=== PATIENT | male | born 1960 | race Caucasian/White ===

== ENCOUNTER 2016-08-04 16:14 | Emergency (ER) | payer SELFPAY ==
[~2016-08-04] VITALS: Ht 172.7 cm; Wt 104.3 kg
[2016-08-04] MEDS ORDERED: IV NORMAL SALINE 1000ML BAG 1,000 ML IV SCH (16:27)
--- NOTE | 2016-08-04 16:51 | EKG ---
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
[2016-08-04 17:22] LABS: BARBITURATES NEG (NEG); BENZODIAZEPINES NEG (NEG); CANNABINOIDS POS (NEG); COCAINE NEG (NEG); METHADONE NEG (NEG); OPIATES NEG (NEG); PHENCYCLIDINE NEG (NEG)
[2016-08-04 17:23] LABS: ETHANOL, URINE NEG (NEG)
[2016-08-04 17:50] LABS: BASO # 0.1 x10^3/uL (0.0-0.2); BASO % 0 % (0-3); EOS % 0 % (0-3); HEMATOCRIT 43.9 % (39.0-53.0); HEMOGLOBIN 14.8 g/dL (13.0-17.5); LYMPH # 0.7 x10^3/uL (1.0-4.8); LYMPH % 4 % (24-48); MEAN CORPUSCULAR HEMOGLOBIN 28 pg (25-35); MEAN CORPUSCULAR HGB CONC 34 g/dL (31-37); MEAN CORPUSCULAR VOLUME 83 fL (79-100); MONO % 6 % (0-9); NEUT % 90 % (31-73); PLATELET COUNT 211 x10^3/uL (140-400); RED BLOOD COUNT 5.32 x10^6/uL (4.30-5.70); RED CELL DISTRIBUTION WIDTH 14.8 % (11.5-14.5); WHITE BLOOD COUNT 17.2 x10^3/uL (4.0-11.0)
[2016-08-04 18:05] LABS: CALCIUM 8.9 mg/dL (8.5-10.1); CREATININE 1.4 mg/dL (0.7-1.3); GFR 52.2
[2016-08-04 18:07] LABS: POTASSIUM 2.7 mmol/L (3.5-5.1)
[2016-08-04] MEDS ORDERED: POTASSIUM CHLORIDE 20 MEQ TABLET.ER. PO ONE (18:15)
[2016-08-04 18:20] LABS: % BASOS 1 % (0-3)
[2016-08-04 18:23] LABS: ANISOCYTOSIS SLIGHT; OVALOCYTES OCC; PLT ESTIMATE ADEQUATE (ADEQUATE); POLYCHROMASIA SLIGHT
[2016-08-04 18:24] LABS: TOXIC GRANULATION SLIGHT
[2016-08-04 18:25] VITALS: BP 216/117
[2016-08-04] MEDS ORDERED: HYDR-2666 PO (18:37)
[2016-08-04] MEDS ORDERED: LISI10TA2 PO (18:37)
--- NOTE | 2016-08-04 18:37 | PHYS DOC ---
Past Medical History Past Medical History: Hypertension, Hepatitis Additional Past Medical Histor: non compliant due to lack of money, hep C Past Surgical History: No Surgical History Additional Information: 2ppd Alcohol Use: Occasionally Drug Use: None Adult General Chief Complaint Chief Complaint: SHOULDER INJURY HPI HPI Patient is a 56 year old male who presents by EMS for left upper arm audible pop sound with tearing sensation and resultant constant pain and ecchymosis. States he was pushing an object at time of injury. States he then became lightheaded and had pain radiation toward left chest, so he called EMS. He currently only has LUE pain. He denies exertional chest pain, dyspnea, orthopnea, palpitations, diaphoresis, lightheadedness, numbness, tingling, weakness, abdominal pain, back pain. Has not been on HTN meds for years, but was on Lisinopril in the past. He does mention upon triage screening symptoms of recent depression with suicidal thoughts. States he is talking to his friends and family about these feelings and is feeling somewhat better. States he would never commit suicide. He denies HI or hallucinations. Review of Systems Review of Systems Constitutional: Denies fever or chills [] Eyes: Denies change in visual acuity, redness, or eye pain [] HENT: Denies nasal congestion or sore throat [] Respiratory: Denies cough or shortness of breath [] Cardiovascular: No additional information not addressed in HPI [] GI: Denies abdominal pain, nausea, vomiting, bloody stools or diarrhea [] : Denies dysuria or hematuria [] Musculoskeletal: Denies back pain [] Integument: Denies rash or skin lesions [] Neurologic: Denies headache, focal weakness or sensory changes [] Endocrine: Denies polyuria or polydipsia [] Current Medications Current Medications Current Medications Medications (Trade) Dose Ordered Sig/Conor Start Time Stop Time Status Last Admin Dose Admin Acetaminophen/ Hydrocodone Bitart (Lortab 5/325) 2 tab 1X ONCE 08/04/16 18:45 08/04/16 18:46 DC 08/04/16 18:44 2 TAB Potassium Chloride (Klor-Con) 40 meq 1X ONCE 08/04/16 18:15 08/04/16 18:16 DC 08/04/16 18:44 40 MEQ Sodium Chloride (Iv Sodium Chloride 0.9% 1000ml Bag) 1,000 ml @ 1,000 mls/hr Q1H 08/04/16 16:27 08/04/16 17:26 DC 08/04/16 17:23 1,000 MLS/HR Allergies Allergies Allergies Coded Allergies Type Severity Reaction Last Updated Verified Penicillins Allergy Intermediate 08/04/16 Yes Physical Exam Physical Exam Constitutional: Well developed, well nourished, no acute distress, non-toxic appearance. [] HENT: Normocephalic, atraumatic, bilateral external ears normal, oropharynx moist, nose normal. [] Eyes: PERRLA, EOMI, conjunctiva normal, no discharge. [] Neck: Normal range of motion, supple. [] Cardiovascular:Heart rate regular rhythm, no murmur [] Lungs & Thorax: Bilateral breath sounds clear to auscultation [] Abdomen: Bowel sounds normal, soft, no tenderness. [] Skin: Warm, dry, no erythema, no rash. [] Back: No tenderness, no CVA tenderness. [] Extremities: LUE with swelling and ecchymosis of bicep area with similar contour compared to right arm; Full ROM with shoulder/elbow/wrist/hand; Can pronate/supinate; Can make fist/ok sign/thumb up/finger cross and spread; Can flex/ex wrist; Good radial pulse and brisk cap refill equal bilaterally; sensation intact to light touch m/u/r/ax nerves Neurologic: Alert and oriented X 3, normal motor function, normal sensory function, no focal deficits noted. [] Psychologic: Affect normal, judgement normal, mood normal. [] Current Patient Data Vital Signs Vital Signs Date Time Temp Pulse Resp B/P Pulse Ox O2 Delivery O2 Flow Rate FiO2 08/04/16 18:25 80 216/117 08/04/16 16:15 98.3 17 96 Room Air 98.3 Lab Values Laboratory Tests Test 08/04/16 17:10 08/04/16 17:30 Urine Opiates Screen Neg (NEG) Urine Methadone Screen Neg (NEG) Urine Barbiturates Neg (NEG) Urine Phencyclidine Screen Neg (NEG) Urine Amphetamine/Methamphetamine Neg (NEG) Urine Benzodiazepines Screen Neg (NEG) Urine Cocaine Screen Neg (NEG) Urine Cannabinoids Screen Pos (NEG) Urine Ethyl Alcohol Neg (NEG) White Blood Count 17.2x10^3/uL (4.0-11.0) H Red Blood Count 5.32x10^6/uL (4.30-5.70) Hemoglobin 14.8g/dL (13.0-17.5) Hematocrit 43.9% (39.0-53.0) Mean Corpuscular Volume 83fL (79-100) Mean Corpuscular Hemoglobin 28pg (25-35) Mean Corpuscular Hemoglobin Concent 34g/dL (31-37) Red Cell Distribution Width 14.8% (11.5-14.5) H Platelet Count 211x10^3/uL (140-400) Neutrophils (%) (Auto) 90% (31-73) H Lymphocytes (%) (Auto) 4% (24-48) L Monocytes (%) (Auto) 6% (0-9) Eosinophils (%) (Auto) 0% (0-3) Basophils (%) (Auto) 0% (0-3) Neutrophils # (Auto) 15.5x10^3uL (1.8-7.7) H Lymphocytes # (Auto) 0.7x10^3/uL (1.0-4.8) L Monocytes # (Auto) 1.0x10^3/uL (0.0-1.1) Eosinophils # (Auto) 0.0x10^3/uL (0.0-0.7) Basophils # (Auto) 0.1x10^3/uL (0.0-0.2) Segmented Neutrophils % 90% (35-66) H Lymphocytes % 4% (24-48) L Monocytes % 5% (0-10) Basophils % 1% (0-3) Toxic Granulation Slight Platelet Estimate Adequate (ADEQUATE) Large Platelets Occ Polychromasia Slight Anisocytosis Slight Ovalocytes Occ Sodium Level 142mmol/L (136-145) Potassium Level 2.7mmol/L (3.5-5.1) *L Chloride Level 102mmol/L (98-107) Carbon Dioxide Level 29mmol/L (21-32) Anion Gap 11 (6-14) Blood Urea Nitrogen 14mg/dL (8-26) Creatinine 1.4mg/dL (0.7-1.3) H Estimated GFR (Cockcroft-Gault) 52.2 Glucose Level 206mg/dL (70-99) H Calcium Level 8.9mg/dL (8.5-10.1) Laboratory Tests 08/04/16 17:30 Laboratory Tests 08/04/16 17:30 EKG EKG EKG as interpreted by me as normal sinus rhythm, rate 75, no ST elevations, lateral T wave inversions, P-R 126, QTC 474, no ectopy Course & Med Decision Making Course & Med Decision Making Pertinent Labs and Imaging studies reviewed. (See chart for details) Labs reveal hypokalemia, which was replaced by mouth. History and musculoskeletal exam concerning for partial bicep tendon or muscle injury. Will restart him on lisinopril. Provided sling for arm. Encouraged orthopedic follow-up as well as primary care follow-up. Return precautions given. He understands and agrees with plan. Dragon Disclaimer Dragon Disclaimer This electronic medical record was generated, in whole or in part, using a voice recognition dictation system. Departure Departure Impression: Primary Impression: Left arm pain Additional Impressions: Feeling suicidal Uncontrolled hypertension Disposition: HOME, SELF-CARE Condition: STABLE Referrals: SHANIQUE STANLEY MD (PCP) JOVANI LUIS MD Patient Instructions: Musculoskeletal Pain Additional Instructions: Take lisinopril for high blood pressure. Take Tylenol or ibuprofen as needed for moderate pain. Take hydrocodone as needed for severe pain. Do not drink, drive or operate heavy machinery after taking hydrocodone as it may make you sleepy. Follow-up with your primary care doctor for high blood pressure and Orthopedics clinic for your arm. Return for any concerns. Scripts Hydrocodone Bit/Acetaminophen (Hydrocodone-Apap 5-325 )1 Each Tablet1-2 Tab PO PRN Q6HRS PRN PAIN #10 TAB Prov:Vinicius OLGUIN MD 08/04/16 Lisinopril 10 Mg Tablet1 Tab PO DAILY #30 TAB Ref 0 Prov:Vinicius OLGUIN MD 08/04/16 Problem Qualifiers Vinicius OLGUIN MD Aug 04, 2016 18:37
[2016-08-04] MEDS ORDERED: HYDROCODONE/APAP 5/325MG TABLET. PO ONE (18:45)
== END 2016-08-04 18:45 | disposition home or self-care (01) ==
LOC: ER 16:14
DX: M79.602 Pain in left arm (principal); E87.6 Hypokalemia; R45.851 Suicidal ideations; I10 Essential (primary) hypertension; F17.200 Nicotine dependence, unspecified, uncomplicated; Z86.19 Personal history of other infectious and parasitic diseases; Z88.0 Allergy status to penicillin
CPT/HCPCS: 36415; 80048; 85007; 85027; 93005; 96360; 99285; G0481; J7030

== ENCOUNTER 2016-10-12 22:58 | Inpatient (IN) | payer SELFPAY ==
[~2016-10-12] VITALS: Ht 177.8 cm; Wt 84.8 kg
[~2016-10-12 22:58] MED LIST: HYDR-2666 PO; LISI10TA2 PO
[2016-10-12] MEDS ORDERED: PROPOFOL 50 ML IV ONE ×2 (23:15→23:45)
[2016-10-12] MEDS ORDERED: NITROGLYCERIN PREMIX 250 ML IV PRN (23:30)
--- NOTE | 2016-10-12 23:43 | PHYS DOC ---
Past Medical History Past Medical History: Hypertension, Hepatitis Additional Past Medical Histor: non compliant due to lack of money, hep C Past Surgical History: No Surgical History Alcohol Use: Occasionally Drug Use: None Adult General Chief Complaint Chief Complaint: SHORTNESS OF BREATH HPI HPI Patient is a 56 year old male who presents with complaint of severe respiratory distress. The patient was brought to the emergency department by EMS after patient had called him to his home due to shortness of breath. Patient was found to be hypoxic and was started on supplemental oxygen by EMS prior to arrival. On arrival the patient is only able to speak in one-word sentences and is currently tripoding, thus he is only able to provide limited history. The patient denies any known history of COPD or congestive heart failure and is not on medications for these conditions. Patient does not follow the primary doctor at this time. Patient states his symptoms have been worsening over the past 3 days. Patient denies any fevers, chest pain, or abdominal pain. 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 Review of Systems Review of Systems Constitutional: Fatigue, denies fever or chills [] Eyes: Denies change in visual acuity, redness, or eye pain [] HENT: Denies nasal congestion or sore throat [] Respiratory: Shortness of breath [] Cardiovascular: Denies chest pain or edema [] GI: Denies abdominal pain, nausea, vomiting, bloody stools or diarrhea [] : Denies dysuria or hematuria [] Musculoskeletal: Denies back pain or joint pain [] Integument: Denies rash or skin lesions [] Neurologic: Denies headache, focal weakness or sensory changes [] Current Medications Current Medications Current Medications Medications (Trade) Dose Ordered Sig/Conor Start Time Stop Time Status Last Admin Dose Admin Nitroglycerin/ Dextrose 250 ml @ 0 mls/hr CONT PRN 10/12/16 23:30 Propofol 50 ml @ As Directed STK-MED ONCE 10/12/16 23:15 10/12/16 23:16 DC Allergies Allergies Allergies Coded Allergies Type Severity Reaction Last Updated Verified Penicillins Allergy Intermediate 08/04/16 Yes Physical Exam Physical Exam Constitutional: Alert, afebrile, diaphoretic, appears in severe respiratory distress. [] HENT: Normocephalic, atraumatic, bilateral external ears normal, oropharynx moist, no oral exudates, nose normal. [] Eyes: PERRLA, EOMI, conjunctiva normal, no discharge. [] Neck: Normal range of motion, no tenderness, supple, no stridor. [] Cardiovascular: Tachycardia, regular rhythm, no murmur [] Lungs & Thorax: Severely restricted air movement bilaterally, rales bilaterally , faint expiratory wheezes [] Abdomen: Bowel sounds normal, soft, no tenderness, no masses, no pulsatile masses. [] Skin: Diaphoretic, cyanotic, mottled. [] Back: No tenderness, no CVA tenderness. [] Extremities: No tenderness, distal cyanosis present, no clubbing, ROM intact, trace pedal edema. [] Neurologic: Alert and oriented X 3, normal motor function, normal sensory function, no focal deficits noted. [] Current Patient Data Lab Values Laboratory Tests Test 10/12/16 23:02 10/12/16 23:29 White Blood Count 16.2 x10^3/uL (4.0-11.0) H Red Blood Count 6.41 x10^6/uL (4.30-5.70) H Hemoglobin 17.7 g/dL (13.0-17.5) H Hematocrit 55.0 % (39.0-53.0) H Mean Corpuscular Volume 86 fL (79-100) Mean Corpuscular Hemoglobin 28 pg (25-35) Mean Corpuscular Hemoglobin Concent 32 g/dL (31-37) Red Cell Distribution Width 15.5 % (11.5-14.5) H Platelet Count 298 x10^3/uL (140-400) Neutrophils (%) (Auto) 72 % (31-73) Lymphocytes (%) (Auto) 18 % (24-48) L Monocytes (%) (Auto) 8 % (0-9) Eosinophils (%) (Auto) 2 % (0-3) Basophils (%) (Auto) 0 % (0-3) Neutrophils # (Auto) 11.7 x10^3uL (1.8-7.7) H Lymphocytes # (Auto) 2.9 x10^3/uL (1.0-4.8) Monocytes # (Auto) 1.4 x10^3/uL (0.0-1.1) H Eosinophils # (Auto) 0.2 x10^3/uL (0.0-0.7) Basophils # (Auto) 0.1 x10^3/uL (0.0-0.2) Platelet Estimate Adequate (ADEQUATE) Large Platelets Few Giant Platelets Occ D-Dimer (Farzana) 1.22 ug/mlFEU (0.00-0.50) H Sodium Level 145 mmol/L (136-145) Potassium Level 3.6 mmol/L (3.5-5.1) Chloride Level 105 mmol/L (98-107) Carbon Dioxide Level 24 mmol/L (21-32) Anion Gap 16 (6-14) H Blood Urea Nitrogen 23 mg/dL (8-26) Creatinine 1.3 mg/dL (0.7-1.3) Estimated GFR (Cockcroft-Gault) 56.9 BUN/Creatinine Ratio 18 (6-20) Glucose Level 252 mg/dL (70-99) H Lactic Acid Level 7.7 mmol/L (0.4-2.0) *H Calcium Level 9.8 mg/dL (8.5-10.1) Total Bilirubin 0.4 mg/dL (0.2-1.0) Aspartate Amino Transferase (AST) 31 U/L (15-37) Alanine Aminotransferase (ALT) 34 U/L (16-63) Alkaline Phosphatase 133 U/L (46-116) H Creatine Kinase 167 U/L (39-308) Creatine Kinase MB (Mass) 5.1 ng/mL (0.0-3.6) H Creatine Kinase MB Relative Index 3.1 % (0-4) Troponin I Quantitative 0.039 ng/mL (0.000-0.055) KS-Yfq-P-Type Natriuretic Peptide 5033 pg/mL (0-124) H Total Protein 9.1 g/dL (6.4-8.2) H Albumin 4.2 g/dL (3.4-5.0) Albumin/Globulin Ratio 0.9 (1.0-1.7) L O2 Saturation 99 % (92-99) Arterial Blood pH 7.21 (7.35-7.45) L Arterial Blood pCO2 at Patient Temp 61 mmHg (35-46) *H Arterial Blood pO2 at Patient Temp 258 mmHg (75-108) H Arterial Blood HCO3 23 mmol/L (21-28) Arterial Blood Base Excess -6 mmol/L (-3-3) L FiO2 100 Laboratory Tests 10/12/16 23:02 Laboratory Tests 10/12/16 23:02 EKG EKG Interpreted by me: Heart rate 120, sinus tachycardia, frequent PVCs, normal axis , no acute ST/T-wave abnormalities present [] Radiology/Procedures Radiology/Procedures One view AP chest x-ray interpreted by me: [place] pulmonary edema bilaterally, ET tube in satisfactory position, cardiomegaly present [] Course & Med Decision Making Course & Med Decision Making Pertinent Labs and Imaging studies reviewed. (See chart for details) The patient appeared to be in impending respiratory failure upon arrival to the emergency department. The patient was offered BiPAP therapy, however he stated that he could not tolerate the treatment and took the mask off. I explained to the patient that due to his extreme condition the only thing that could help him at this time would be to intubate him in order to help improve his breathing. The patient gave verbal consent to have this procedure done and this was completed as outlined in the procedure note. Patient noted be critically hypertensive and patient's chest x-ray looks consistent with acute congestive heart failure. The patient was initiated on IV propofol for sedation, IV nitroglycerin for blood pressure, and IV Lasix for treatment of pulmonary edema. The patient's vital signs are stabilizing at this time. The patient will be admitted to ICU for further treatment. I spoke with Dr. Alcaraz who accepted care of patient in hospital. The patient will also be consulted by Dr. Lyn of pulmonology and Dr. Rosa of cardiology. CT angiogram pending at time of admission. These results will be followed up by Dr. Pak. Critical care time excluding procedures: 65 minutes Dragon Disclaimer Dragon Disclaimer This electronic medical record was generated, in whole or in part, using a voice recognition dictation system. Intubation Procedure Intub Indication: Respiratory failure Consent: Patient gave verbal consent for procedure. Medications Used: see nursing note Procedure: The patient was placed in the appropriate position. Intubation was performed under direct laryngoscopy with placement of a 7.5 endotracheal tube. Secured at 22 cm at the lip. Initial confirmation of placement included bilateral breath sounds, tube fogging, adequate chest rise, adequate pulse oximetry reading. A chest x-ray to verify correct placement of the tube showed appropriate tube position. The patient tolerated the procedure well. Complications: none. Departure Departure Impression: Primary Impression: Acute respiratory failure Additional Impressions: Acute congestive heart failure Metabolic acidosis Respiratory acidosis Disposition: ADMITTED INPATIENT Admitting Physician: Robin Alcaraz Condition: CRITICAL Referrals: SHANIQUE STANLEY MD (PCP) Problem Qualifiers Primary Impression: Acute respiratory failure Respiratory failure complication: hypoxia Qualified Codes: J96.01 - Acute respiratory failure with hypoxia Additional Impressions: Acute congestive heart failure Congestive heart failure type: unspecified congestive heart failure type Qualified Codes: I50.9 - Heart failure, unspecified OLY MICHELLE MD October 12, 2016 23:43
[2016-10-12 23:44] LABS: BASO # 0.1 x10^3/uL (0.0-0.2); BASO % 0 % (0-3); EOS % 2 % (0-3); HEMOGLOBIN 17.7 g/dL (13.0-17.5); LYMPH # 2.9 x10^3/uL (1.0-4.8); LYMPH % 18 % (24-48); MEAN CORPUSCULAR HEMOGLOBIN 28 pg (25-35); MEAN CORPUSCULAR HGB CONC 32 g/dL (31-37); MEAN CORPUSCULAR VOLUME 86 fL (79-100); MONO % 8 % (0-9); NEUT % 72 % (31-73); PLATELET COUNT 298 x10^3/uL (140-400); RED BLOOD COUNT 6.41 x10^6/uL (4.30-5.70); RED CELL DISTRIBUTION WIDTH 15.5 % (11.5-14.5); WHITE BLOOD COUNT 16.2 x10^3/uL (4.0-11.0)
[2016-10-12] MEDS ORDERED: FUROSEMIDE 40 MG/4 ML VIAL. IVP ONE (23:45)
[2016-10-12] MEDS ORDERED: IV NORMAL SALINE 1000ML BAG 1,000 ML IV SCH (23:45)
[2016-10-12 23:57] LABS: CALCIUM 9.8 mg/dL (8.5-10.1); CREATININE 1.3 mg/dL (0.7-1.3); GFR 56.9; POTASSIUM 3.6 mmol/L (3.5-5.1)
[2016-10-13] VITALS (21 sets, daily range): BP systolic 90–133; BP diastolic 67–98
[2016-10-13 00:09] LABS: ALBUMIN 4.2 g/dL (3.4-5.0); ALBUMIN/GLOBULIN RATIO 0.9 (1.0-1.7); TOTAL BILIRUBIN 0.4 mg/dL (0.2-1.0); TOTAL PROTEIN 9.1 g/dL (6.4-8.2)
[2016-10-13 00:14] LABS: CKMB MASS 5.1 ng/mL (0.0-3.6)
[2016-10-13 00:15] LABS: PH ABG 7.21 (7.35-7.45)
[2016-10-13] MEDS ORDERED: ROCURONIUM 50 MG/5 ML VIAL. IV ONE ×2 (00:15→02:15)
[2016-10-13 00:16] LABS: FIO2 ABG 100; HCO3 ABG 23 mmol/L (21-28); PCO2 ABG 61 mmHg (35-46); PO2 ABG 258 mmHg (75-108); SAT O2 ABG 99 % (92-99)
[2016-10-13 00:28] LABS: PLT ESTIMATE ADEQUATE (ADEQUATE)
[2016-10-13] MEDS ORDERED: CONTRAST GIVEN MC PRN (00:30)
[2016-10-13] MEDS ORDERED: ETOMIDATE 20 MG/10 ML VIAL. IV ONE (00:30)
[2016-10-13] MEDS ORDERED: IOHEXOL 300 MG/ML 75 ML VIAL IV ONE (01:00)
[2016-10-13] MEDS ORDERED: ACETAMINOPHEN 325 MG TABLET. PO PRN (01:15)
[2016-10-13] MEDS ORDERED: ONDANSETRON PF 4 MG/2 ML VIAL. IV PRN (01:15)
--- NOTE | 2016-10-13 01:15 | RAD ---
CT angiography chest with contrast TECHNIQUE: Helical CT imaging of the chest with multiplanar 3-D MIP reconstructions of the coronary arteries acquired to assess for emboli with 60 mL Omnipaque 300 intravenous contrast. HISTORY: Acute congestive heart failure FINDINGS: No pulmonary artery embolus. Coronary calcified plaque. Thoracic aorta is unremarkable. Heart size is normal. Nasogastric intubation. Endotracheal intubation. No adenopathy in the chest. Very small dependent pleural effusions. Mild dependent mucus within the distal trachea, [place] and central bronchi. Smooth septal interstitial thickening likely edema. There is extensive peripheral bronchial wall thickening. Diffuse groundglass opacities likely edema. Consolidated opacities at the lower lobes right greater than left with air bronchograms. IMPRESSION: 1. No pulmonary artery embolus. 2. Consolidated opacities with air bronchograms at the lower lobes greater on the right. This may be multilobar pneumonia. There is layering fluid within the dependent distal trachea and central bronchi which could be mucous or could be sequela of aspiration. 3. Bronchial wall thickening likely bronchitis. 4. Pulmonary edema. Small pleural effusions. Exposure: One or more of the following individualized dose reduction techniques were utilized for this examination: 1. Automated exposure control 2. Adjustment of the mA and/or kV according to patient size 3. Use of iterative reconstruction technique Electronically signed by: Cristobal Lui MD (10/13/2016 1:12 AM)
[2016-10-13] MEDS ORDERED: levOFLOXacin PER PHARMACY. MC PRN (01:45)
[2016-10-13] MEDS: PROPOFOL 100 ML IV PRN ×6 (02:01→23:32)
[2016-10-13] MEDS: IV NORMAL SALINE 1000ML BAG 1,000 ML IV SCH ×3 (02:28→17:43)
[2016-10-13] MEDS ORDERED: IV NORMAL SALINE 500ML BAG 500 ML IV ONE (03:30)
--- NOTE | 2016-10-13 07:43 | EKG ---
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
[2016-10-13 07:46] LABS: HCO3 ABG 20 mmol/L (21-28); PCO2 ABG 31 mmHg (35-46); PH ABG 7.42 (7.35-7.45); PO2 ABG 178 mmHg (75-108); SAT O2 ABG 99 % (92-99)
--- NOTE | 2016-10-13 07:55 | RAD ---
Indication difficulty breathing. 2 AP views of the chest were obtained. No prior imaging of the chest is available. There is mild cardiomegaly. There are widespread infiltrates in the lungs likely reflecting pulmonary edema. There is no focal consolidated pneumonia. Endotracheal tube is appropriately positioned above the [place]. Nasogastric tube has its tip beyond the proximal body of the stomach IMPRESSION: Bilateral infiltrates suggesting pulmonary edema. Appropriately positioned endotracheal and nasogastric tubes. No focal consolidated pneumonia seen
[2016-10-13 08:18] LABS: FIO2 ABG 65
--- NOTE | 2016-10-13 09:42 | PDOC2 ---
CARDIAC CONSULT DATE OF CONSULT Date of Consult DATE: 10/13/16 TIME: 09:36 REASON FOR CONSULT Reason for Consult: CHF REFERRING PHYSICIAN Referring Physician: Dr. Madrid SOURCE Source: Chart review, Patient HISTORY OF PRESENT ILLNESS HISTORY OF PRESENT ILLNESS This is a 56 yo male who presented secondary to respiratory distress. HPI obtained from chart review as patient is intubated and family not present. EMS called for shortness of breath. Symptoms ongoing for the last 3 days or so. Was reportedly noted to be hypoxic per EMS and placed on NC. No history of COPD or CHF per report. Further history not available. PAST MEDICAL HISTORY Cardiovascular: HTN PAST SURGICAL HISTORY Past Surgical History: Other (unknown) FAMILY HISTORY Family History: Family History Unknown CURRENT MEDICATIONS CURRENT MEDICATIONS Current Medications Medications (Trade) Dose Ordered Sig/Conor Route PRN Reason Start Time Stop Time Status Last Admin Dose Admin Sodium Chloride 1,000 ml @ 1,000 mls/hr Q1H IV 10/12/16 23:45 10/13/16 00:44 DC 10/12/16 23:15 Nitroglycerin/ Dextrose 250 ml @ 0 mls/hr CONT PRN IV SEE I/O RECORD 10/12/16 23:30 10/12/16 23:56 Propofol 100 ml @ 0 mls/hr CONT PRN IV SEE I/O RECORD 10/12/16 23:45 10/13/16 09:05 Propofol 50 ml @ 0 mls/hr 1X ONCE IV 10/12/16 23:45 10/12/16 23:46 DC 10/12/16 23:18 Furosemide (Lasix) 80 mg 1X ONCE IVP 10/12/16 23:45 10/12/16 23:46 DC 10/12/16 22:48 Rocuronium Melvern (Zemuron) 50 mg 1X ONCE IV 10/13/16 00:15 10/13/16 00:16 DC 10/13/16 00:15 Etomidate (Amidate) 20 mg 1X ONCE IV 10/13/16 00:30 10/13/16 00:31 DC 10/12/16 23:10 Iohexol (Omnipaque 300 Mg/ml) 60 ml 1X ONCE IV 10/13/16 01:00 10/13/16 01:01 DC 10/13/16 01:03 Sodium Chloride 1,000 ml @ 125 mls/hr Q8H IV 10/13/16 01:09 10/14/16 01:08 10/13/16 09:05 Levofloxacin/ Dextrose 100 ml @ 100 mls/hr 1X ONCE IV 10/13/16 02:00 10/13/16 02:59 DC 10/13/16 02:29 Rocuronium Melvern (Zemuron) 50 mg 1X ONCE IV 10/13/16 02:15 10/13/16 02:26 DC 10/12/16 23:10 Sodium Chloride 500 ml @ 500 mls/hr 1X ONCE IV 10/13/16 03:30 10/13/16 04:29 DC 10/13/16 01:13 ALLERGIES ALLERGIES: Coded Allergies: Penicillins (Verified Allergy, Intermediate, 08/04/16) ROS Review of System unobtainable. PHYSICAL EXAM General: Other (intubated/sedated ) HEENT: Atraumatic Lungs: Clear to auscultation, Other (intubated with mechanical ventilation ) Heart: Regular rate, Normal S1, Normal S2, Other (difficult to appreciate heart tones) Abdomen: Soft Extremities: No cyanosis, No edema, Normal pulses Skin: No significant lesion Neuro: Other (sedated) VITALS VITALS Vital Signs Date Time Temp Pulse Resp B/P (MAP) Pulse Ox O2 Delivery O2 Flow Rate FiO2 10/13/16 09:13 100 Ventilator 10/13/16 09:02 71 24 98/70 (79) 10/13/16 08:00 15.0 10/13/16 07:00 98.9 98.9 LABS Lab: Laboratory Tests Test 10/12/16 23:02 10/12/16 23:29 10/13/16 02:55 10/13/16 08:00 White Blood Count 16.2 x10^3/uL (4.0-11.0) Red Blood Count 6.41 x10^6/uL (4.30-5.70) Hemoglobin 17.7 g/dL (13.0-17.5) Hematocrit 55.0 % (39.0-53.0) Mean Corpuscular Volume 86 fL (79-100) Mean Corpuscular Hemoglobin 28 pg (25-35) Mean Corpuscular Hemoglobin Concent 32 g/dL (31-37) Red Cell Distribution Width 15.5 % (11.5-14.5) Platelet Count 298 x10^3/uL (140-400) Neutrophils (%) (Auto) 72 % (31-73) Lymphocytes (%) (Auto) 18 % (24-48) Monocytes (%) (Auto) 8 % (0-9) Eosinophils (%) (Auto) 2 % (0-3) Basophils (%) (Auto) 0 % (0-3) Neutrophils # (Auto) 11.7 x10^3uL (1.8-7.7) Lymphocytes # (Auto) 2.9 x10^3/uL (1.0-4.8) Monocytes # (Auto) 1.4 x10^3/uL (0.0-1.1) Eosinophils # (Auto) 0.2 x10^3/uL (0.0-0.7) Basophils # (Auto) 0.1 x10^3/uL (0.0-0.2) Platelet Estimate Adequate (ADEQUATE) Large Platelets Few Giant Platelets Occ D-Dimer (Farzana) 1.22 ug/mlFEU (0.00-0.50) Sodium Level 145 mmol/L (136-145) Potassium Level 3.6 mmol/L (3.5-5.1) Chloride Level 105 mmol/L (98-107) Carbon Dioxide Level 24 mmol/L (21-32) Anion Gap 16 (6-14) Blood Urea Nitrogen 23 mg/dL (8-26) Creatinine 1.3 mg/dL (0.7-1.3) Estimated GFR (Cockcroft-Gault) 56.9 BUN/Creatinine Ratio 18 (6-20) Glucose Level 252 mg/dL (70-99) Lactic Acid Level 7.7 mmol/L (0.4-2.0) 1.9 mmol/L (0.4-2.0) Calcium Level 9.8 mg/dL (8.5-10.1) Total Bilirubin 0.4 mg/dL (0.2-1.0) Aspartate Amino Transf (AST/SGOT) 31 U/L (15-37) Alanine Aminotransferase (ALT/SGPT) 34 U/L (16-63) Alkaline Phosphatase 133 U/L (46-116) Creatine Kinase 167 U/L (39-308) Creatine Kinase MB (Mass) 5.1 ng/mL (0.0-3.6) Creatine Kinase MB Relative Index 3.1 % (0-4) Troponin I Quantitative 0.039 ng/mL (0.000-0.055) HP-Nbs-P-Type Natriuretic Peptide 5033 pg/mL (0-124) Total Protein 9.1 g/dL (6.4-8.2) Albumin 4.2 g/dL (3.4-5.0) Albumin/Globulin Ratio 0.9 (1.0-1.7) O2 Saturation 99 % (92-99) 99 % (92-99) Arterial Blood pH 7.21 (7.35-7.45) 7.42 (7.35-7.45) Arterial Blood pCO2 at Patient Temp 61 mmHg (35-46) 31 mmHg (35-46) Arterial Blood pO2 at Patient Temp 258 mmHg (75-108) 178 mmHg (75-108) Arterial Blood HCO3 23 mmol/L (21-28) 20 mmol/L (21-28) Arterial Blood Base Excess -6 mmol/L (-3-3) -4 mmol/L (-3-3) FiO2 100 65 ASSESSMENT/PLAN ASSESSMENT/PLAN 1. Acute heart failure BNP elevated; CXR with pleural edema IV Lasix in ED; continue with diuresis with monitoring of renal function check echo to assess LV function 2. Malignant hypertension improved with nitro gtt now low normotensive without therapy. consider adding LIDIA when BP normalizes. 3. Acute respiratory failure s/p intubation multifactorial given ? PNA and acute HF vent management per pulm 4. Leukocytosis IV antibiotics per IM 5. Lactic acidosis 6. Hyperglycemia ?stress induced check A1C 7. Poor dentition h/o drug use? check UDS Problems: HARINI MALDONADO APRN October 13, 2016 09:42
[2016-10-13] MEDS: FUROSEMIDE 40 MG/4 ML VIAL. IVP SCH (11:24)
[2016-10-13 12:15] LABS: BARBITURATES NEG (NEG); BENZODIAZEPINES NEG (NEG); CANNABINOIDS POS (NEG); COCAINE NEG (NEG); METHADONE NEG (NEG); OPIATES NEG (NEG); PHENCYCLIDINE NEG (NEG)
--- NOTE | 2016-10-13 13:48 | CARD ---
APPROVED REPORT EXAM: Two-dimensional and M-mode echocardiogram with Doppler and color Doppler. Other Information Quality : FairHR: 69bpm Rhythm : NSR INDICATION Congestive Heart Failure 2D DIMENSIONS RVDd2.9 (2.9-3.5cm)Left Atrium(2D)4.4 (1.6-4.0cm) IVSd1.1 (0.7-1.1cm)Aortic Root(2D)2.9 (2.0-3.7cm) LVDd5.3 (3.9-5.9cm)LVOT Diameter2.3 (1.8-2.4cm) PWd1.1 (0.7-1.1cm)LVDs4.3 (2.5-4.0cm) FS (%) 18.3 %SV51.1 ml LVEF(%)37.6 (>50%) Aortic Valve AoV Peak Keron.188.1cm/sAoV VTI28.2cm AO Peak GR.14.2mmHgLVOT Peak Keron.71.2cm/s AO Mean GR.8mmHgAVA (VMAX)1.63cm2 Mitral Valve MV E Ingtbnwv35.8cm/sMV DECEL ITII965gm MV A Hkbfcjlj31.7cm/sE/A Ratio1.8 MV A Lvgihxrb85vb Pulmonary Valve PV Peak Cjrcsgaa61.5cm/s Pulmonary Vein S1 Jcmbhxhl59.0cm/sD2 Actvicvf73.6cm/s PVa [id number] LEFT VENTRICLE The left ventricle is normal size. There is borderline concentric left ventricular hypertrophy. Left ventricle systolic function is moderately to severely impaired. The Ejection Fraction is 25-30%. The proximal anteroseptal wall is severely hypokinetic. The basal to mid inferior wall is severely hypoki netic. The infero-septum is moderately hypokinetic. The proximal to mid lateral wall is also moderate ly hypokinetic. Tissue Doppler imaging reveals moderate left ventricular diastolic dysfunction. No le ft ventricle thrombus noted on this study. RIGHT VENTRICLE The right ventricle is normal size. There is normal right ventricular wall thickness. The right ventr icular systolic function is normal. ATRIA The left atrium is mildly dilated. The right atrium size is normal. The interatrial septum is intact with no evidence for an atrial septal defect or patent foramen ovale as noted on 2-D or Doppler imagi ng. AORTIC VALVE The aortic valve is not well visualized, is calcified and displays decreased opening. Doppler and Col or Flow revealed trace aortic regurgitation. There is no significant aortic valvular stenosis. MITRAL VALVE Mitral annular calcification is mild. The mitral valve leaflets are thickened. There is no evidence o f mitral valve prolapse. There is no mitral valve stenosis. Doppler and Color Flow revealed mild mitr al regurgitation. TRICUSPID VALVE Doppler and Color Flow revealed no tricuspid valve regurgitation noted. Unable to assess RVSP at exam time. PULMONIC VALVE Doppler and Color Flow revealed no pulmonic valvular regurgitation. There is no pulmonic valvular isreal nosis. GREAT VESSELS The aortic root is normal in size. The ascending aorta is normal in size. The IVC is dilated and does not collapse with inspiration. PERICARDIAL EFFUSION There is no evidence of significant pericardial effusion. Critical Notification Critical Value: No <Conclusion> Left ventricle systolic function is moderately to severely impaired. The Ejection Fraction is 25-30%. The proximal anteroseptal wall is severely hypokinetic. The basal to mid inferior wall is severely hy pokinetic. The infero-septum is moderately hypokinetic. The proximal to mid lateral wall is also mode rately hypokinetic. The IVC is dilated and does not collapse with inspiration.
--- NOTE | 2016-10-13 14:24 | PDOC ---
PULMONARY PROGRESS NOTES Vitals Vital Signs Date Time Temp Pulse Resp B/P (MAP) Pulse Ox O2 Delivery O2 Flow Rate FiO2 10/13/16 13:10 98 Ventilator 10/13/16 12:08 15.0 10/13/16 12:04 99.2 68 23 106/69 (81) 99.2 Labs Laboratory Tests Test 10/12/16 23:02 10/12/16 23:29 10/13/16 02:55 10/13/16 08:00 White Blood Count 16.2 x10^3/uL (4.0-11.0) Red Blood Count 6.41 x10^6/uL (4.30-5.70) Hemoglobin 17.7 g/dL (13.0-17.5) Hematocrit 55.0 % (39.0-53.0) Mean Corpuscular Volume 86 fL (79-100) Mean Corpuscular Hemoglobin 28 pg (25-35) Mean Corpuscular Hemoglobin Concent 32 g/dL (31-37) Red Cell Distribution Width 15.5 % (11.5-14.5) Platelet Count 298 x10^3/uL (140-400) Neutrophils (%) (Auto) 72 % (31-73) Lymphocytes (%) (Auto) 18 % (24-48) Monocytes (%) (Auto) 8 % (0-9) Eosinophils (%) (Auto) 2 % (0-3) Basophils (%) (Auto) 0 % (0-3) Neutrophils # (Auto) 11.7 x10^3uL (1.8-7.7) Lymphocytes # (Auto) 2.9 x10^3/uL (1.0-4.8) Monocytes # (Auto) 1.4 x10^3/uL (0.0-1.1) Eosinophils # (Auto) 0.2 x10^3/uL (0.0-0.7) Basophils # (Auto) 0.1 x10^3/uL (0.0-0.2) Platelet Estimate Adequate (ADEQUATE) Large Platelets Few Giant Platelets Occ D-Dimer (Farzana) 1.22 ug/mlFEU (0.00-0.50) Sodium Level 145 mmol/L (136-145) Potassium Level 3.6 mmol/L (3.5-5.1) Chloride Level 105 mmol/L (98-107) Carbon Dioxide Level 24 mmol/L (21-32) Anion Gap 16 (6-14) Blood Urea Nitrogen 23 mg/dL (8-26) Creatinine 1.3 mg/dL (0.7-1.3) Estimated GFR (Cockcroft-Gault) 56.9 BUN/Creatinine Ratio 18 (6-20) Glucose Level 252 mg/dL (70-99) Lactic Acid Level 7.7 mmol/L (0.4-2.0) 1.9 mmol/L (0.4-2.0) Calcium Level 9.8 mg/dL (8.5-10.1) Total Bilirubin 0.4 mg/dL (0.2-1.0) Aspartate Amino Transf (AST/SGOT) 31 U/L (15-37) Alanine Aminotransferase (ALT/SGPT) 34 U/L (16-63) Alkaline Phosphatase 133 U/L (46-116) Creatine Kinase 167 U/L (39-308) Creatine Kinase MB (Mass) 5.1 ng/mL (0.0-3.6) Creatine Kinase MB Relative Index 3.1 % (0-4) Troponin I Quantitative 0.039 ng/mL (0.000-0.055) XR-Vue-T-Type Natriuretic Peptide 5033 pg/mL (0-124) Total Protein 9.1 g/dL (6.4-8.2) Albumin 4.2 g/dL (3.4-5.0) Albumin/Globulin Ratio 0.9 (1.0-1.7) O2 Saturation 99 % (92-99) 99 % (92-99) Arterial Blood pH 7.21 (7.35-7.45) 7.42 (7.35-7.45) Arterial Blood pCO2 at Patient Temp 61 mmHg (35-46) 31 mmHg (35-46) Arterial Blood pO2 at Patient Temp 258 mmHg (75-108) 178 mmHg (75-108) Arterial Blood HCO3 23 mmol/L (21-28) 20 mmol/L (21-28) Arterial Blood Base Excess -6 mmol/L (-3-3) -4 mmol/L (-3-3) FiO2 100 65 Test 10/13/16 11:30 Urine Opiates Screen Neg (NEG) Urine Methadone Screen Neg (NEG) Urine Barbiturates Neg (NEG) Urine Phencyclidine Screen Neg (NEG) Urine Amphetamine/Methamphetamine Neg (NEG) Urine Benzodiazepines Screen Neg (NEG) Urine Cocaine Screen Neg (NEG) Urine Cannabinoids Screen Pos (NEG) Urine Ethyl Alcohol Neg (NEG) Laboratory Tests Test 10/12/16 23:02 10/12/16 23:29 10/13/16 02:55 10/13/16 08:00 White Blood Count 16.2 x10^3/uL (4.0-11.0) Red Blood Count 6.41 x10^6/uL (4.30-5.70) Hemoglobin 17.7 g/dL (13.0-17.5) Hematocrit 55.0 % (39.0-53.0) Mean Corpuscular Volume 86 fL (79-100) Mean Corpuscular Hemoglobin 28 pg (25-35) Mean Corpuscular Hemoglobin Concent 32 g/dL (31-37) Red Cell Distribution Width 15.5 % (11.5-14.5) Platelet Count 298 x10^3/uL (140-400) Neutrophils (%) (Auto) 72 % (31-73) Lymphocytes (%) (Auto) 18 % (24-48) Monocytes (%) (Auto) 8 % (0-9) Eosinophils (%) (Auto) 2 % (0-3) Basophils (%) (Auto) 0 % (0-3) Neutrophils # (Auto) 11.7 x10^3uL (1.8-7.7) Lymphocytes # (Auto) 2.9 x10^3/uL (1.0-4.8) Monocytes # (Auto) 1.4 x10^3/uL (0.0-1.1) Eosinophils # (Auto) 0.2 x10^3/uL (0.0-0.7) Basophils # (Auto) 0.1 x10^3/uL (0.0-0.2) Platelet Estimate Adequate (ADEQUATE) Large Platelets Few Giant Platelets Occ D-Dimer (Farzana) 1.22 ug/mlFEU (0.00-0.50) Sodium Level 145 mmol/L (136-145) Potassium Level 3.6 mmol/L (3.5-5.1) Chloride Level 105 mmol/L (98-107) Carbon Dioxide Level 24 mmol/L (21-32) Anion Gap 16 (6-14) Blood Urea Nitrogen 23 mg/dL (8-26) Creatinine 1.3 mg/dL (0.7-1.3) Estimated GFR (Cockcroft-Gault) 56.9 BUN/Creatinine Ratio 18 (6-20) Glucose Level 252 mg/dL (70-99) Lactic Acid Level 7.7 mmol/L (0.4-2.0) 1.9 mmol/L (0.4-2.0) Calcium Level 9.8 mg/dL (8.5-10.1) Total Bilirubin 0.4 mg/dL (0.2-1.0) Aspartate Amino Transf (AST/SGOT) 31 U/L (15-37) Alanine Aminotransferase (ALT/SGPT) 34 U/L (16-63) Alkaline Phosphatase 133 U/L (46-116) Creatine Kinase 167 U/L (39-308) Creatine Kinase MB (Mass) 5.1 ng/mL (0.0-3.6) Creatine Kinase MB Relative Index 3.1 % (0-4) Troponin I Quantitative 0.039 ng/mL (0.000-0.055) UI-Uae-W-Type Natriuretic Peptide 5033 pg/mL (0-124) Total Protein 9.1 g/dL (6.4-8.2) Albumin 4.2 g/dL (3.4-5.0) Albumin/Globulin Ratio 0.9 (1.0-1.7) O2 Saturation 99 % (92-99) 99 % (92-99) Arterial Blood pH 7.21 (7.35-7.45) 7.42 (7.35-7.45) Arterial Blood pCO2 at Patient Temp 61 mmHg (35-46) 31 mmHg (35-46) Arterial Blood pO2 at Patient Temp 258 mmHg (75-108) 178 mmHg (75-108) Arterial Blood HCO3 23 mmol/L (21-28) 20 mmol/L (21-28) Arterial Blood Base Excess -6 mmol/L (-3-3) -4 mmol/L (-3-3) FiO2 100 65 Test 10/13/16 11:30 Urine Opiates Screen Neg (NEG) Urine Methadone Screen Neg (NEG) Urine Barbiturates Neg (NEG) Urine Phencyclidine Screen Neg (NEG) Urine Amphetamine/Methamphetamine Neg (NEG) Urine Benzodiazepines Screen Neg (NEG) Urine Cocaine Screen Neg (NEG) Urine Cannabinoids Screen Pos (NEG) Urine Ethyl Alcohol Neg (NEG) Medications Active Scripts Medications Dose Route/Sig Max Daily Dose Days Date Category Hydrocodone-Apap 5-325 (Hydrocodone Bit/Acetaminophen) 1 Each Tablet 1-2 Tab PO PRN Q6HRS PRN 08/04/16 Rx Lisinopril 10 Mg Tablet 1 Tab PO DAILY 08/04/16 Rx Impression . FULL NOTE DICATED A RESP FAILURE SEC TO PNEUMONIA AND HEART FAILURE AGREE WITH CURRENT RX JOVANNA MAYER MD October 13, 2016 14:24
--- NOTE | 2016-10-13 16:26 | HP ---
ADMIT DATE: CHIEF COMPLAINT: Shortness of breath. HISTORY OF PRESENT ILLNESS: The patient is a pleasant, 56-year-old male, who presented to the ER last night with shortness of breath. He actually came in by ambulance. They are placed to him on supplemental oxygen. ____ heart failure and respiratory failure. He was intubated. The patient is now admitted to the ICU, where he appears to have new onset systolic and diastolic heart failure. PAST MEDICAL HISTORY: Hep C, noncompliance and hypertension. ALLERGIES: PENICILLIN. FAMILY HISTORY: Hypertension. SOCIAL HISTORY: Unknown. MEDICATIONS: Reviewed, please refer to the MRAD. REVIEW OF SYSTEMS: Unobtainable, the patient is on the vent. PHYSICAL EXAMINATION: VITAL SIGNS: Temperature afebrile, pulse 67, respirations 20, blood pressure 106/69. GENERAL: He is sedated on the vent. HEART: Distant S1, S2 with a soft S3. LUNGS: Bibasilar crackles. ABDOMEN: Soft, positive bowel sounds. EXTREMITIES: Trace edema. SKIN: He has got some tattoos on his right arm. ENDOCRINE: No thyromegaly. LYMPHATICS: No cervical nodes. HEMATOPOIETIC: No bruising. LABORATORY DATA: White count 16, hemoglobin 17.7, platelets 298. Electrolytes: Sodium 145, potassium 3.6, chloride 105, bicarbonate 24, BUN 23, creatinine 1.3, glucose 252. Lactic acid 7.7. ASSESSMENT AND PLAN: Respiratory failure with sutxo-on-jnnzred systolic and diastolic heart failure, sepsis. The patient has been admitted to the ICU, he was intubated and consult pulmonary medicine, Infectious Disease and Cardiology. IV Lasix, IV antibiotics, DuoNeb. PROGNOSIS: Guarded. ALEXANDRIA PALACIO DO DR: WALDO/mark JOB#: [id number] / [id number]
[2016-10-14] VITALS (18 sets, daily range): BP systolic 113–196; BP diastolic 75–111
--- NOTE | 2016-10-14 01:07 | ACF ---
Admission Forms Criteria RESPIRATORY FAILURE [facility] Clinical Indications for Admission to Inpatient Care (Place 'X' for any and all applicable criteria): Hospital admission is needed for appropriate care of the patient because of acute respiratory failure or insufficiency as indicated by ANY ONE of the following(1)(2)(3)(4)(5)(6)(7)(8): [X ]I. Mechanical ventilation needed (acute invasive or noninvasive) [ ]II. Severe ventilation deficit as indicated by ANY ONE of the following (9) [ ]a) Respiratory acidosis (pH less than 7.32 and partial pressure of carbon dioxide greater than 40 mm Hg (5.3 kPa)) [ ]b) Partial pressure of carbon dioxide greater than 44 mm Hg (5.9 kPa ) (new) [ ]c) Airflow measurements less than 25% of predicted (eg, peak expiratory flow rate less than 100 L/minute) [ ]d) Forced vital capacity less than 15 mL/kg of ideal body weight, or 50% decrease in vital capacity from baseline [ ]III. Noncardiac pulmonary edema not resolving with rapid emergency treatment (8) [ ]IV. Severe respiratory distress as indicated by ANY ONE of the following: [ ]a) Severe tachypnea (respiratory rate greater than 30, greater than 45 for 6-month-old, greater than 60 for ) [ ]b) Severe hypoxemia (partial pressure of oxygen less than 50 mm Hg ( 6.7 kPa) on greater than 50% oxygen or partial pressure of oxygen to FIO2 ratio less than 200) [ ]c) Mental status deterioration from respiratory disease [ ]V. Airway obstruction or inadequate protection [A](10)(11) The original [facility] [employer] content created by [facility] has been revised. The portions of the content which have been revised are identified through the use of italic text or in bold, and [employer] has neither reviewed nor approved the modified material. All other unmodified content is copyright [employer]. Please see references footnoted in the original [employer] edition 2016 Admission Criteria Met?: Yes LILLIE NEGRETE October 14, 2016 01:07
[2016-10-14] MEDS: PROPOFOL 100 ML IV PRN (03:28)
--- NOTE | 2016-10-14 03:44 | CONS ---
DATE OF CONSULTATION: 10/13/2016 ATTENDING PHYSICIAN: Dr. Alcaraz. DICTATING PHYSICIAN: Dr. Lyn. REASON FOR CONSULTATION: The patient seen in pulmonary consultation at the request of Dr. Alcaraz for vent management. HISTORY OF PRESENT ILLNESS: The patient is a 56-year-old that presented with acute respiratory distress, in the Emergency Room he was unable to complete full sentences. He was intubated. Chest x-ray revealed bilateral pulmonary infiltrates compatible with pulmonary edema. He underwent a CT chest for PE. There was no evidence of pulmonary embolism. There was evidence of bilateral pulmonary infiltrates compatible with pulmonary edema. There is also some air bronchograms in the right and lower lobes, right greater than left. PAST MEDICAL HISTORY: Hypertension and tobacco dependent. PAST SURGICAL HISTORY: None. ALLERGIES: PENICILLIN. CURRENT MEDICATIONS: List was reviewed. Please see the MRAD. REVIEW OF SYSTEMS: Unobtainable secondary to the patient's condition. PHYSICAL EXAMINATION: GENERAL: The patient was sedated with Diprivan since admission, he has been afebrile. VITAL SIGNS: His blood pressure was initially elevated. HEENT: Eyes, the sclerae were nonicteric. NECK: Jugular venous distention was not elevated. No lymphadenopathy. CHEST: Full expansion. LUNGS: Crackles bilaterally with no wheezes. CARDIOVASCULAR: Regular rate and rhythm with S1, S2, no S3. ABDOMEN: Soft, nontender, nondistended. EXTREMITIES: No clubbing, cyanosis or edema. NEUROLOGIC: The patient was sedated. LABORATORY DATA: White count was elevated. Hemoglobin and hematocrit were noted. Electrolytes were noted. Lactic acid level was initially elevated down to 1.9 this morning. Troponin was initially normal. Arterial blood gas this morning, pH was 7.42, pCO2 of 31, pO2 of 178. Chest x-ray and CT reviewed as indicated above. IMPRESSION: 1. Acute respiratory failure, multifactorial secondary to acute pulmonary edema and pneumonia. 2. Pneumonia. 3. Acute systolic heart failure. The patient had echocardiogram revealing an ejection fraction of 25%. 4. Metabolic acidosis related to increased work of breathing. 5. Tobacco dependence. 6. Hypertension. 7. Hepatitis. PLAN: 1. Workup per Cardiology, may need ischemic workup. 2. Diurese. 3. Control blood pressure. 4. Continue Levaquin. 5. Monitor chest x-ray, once improved, we will extubate. 6. The patient will be instructed on the importance of discontinuing tobacco use. The above was discussed with family members at the bedside, mother and the daughter. JOVANNA LYN MD DR: KAROLINA/mark JOB#: [id number] / [id number]
[2016-10-14 05:47] LABS: BASO # 0.1 x10^3/uL (0.0-0.2); BASO % 1 % (0-3); EOS % 1 % (0-3); HEMATOCRIT 39.8 % (39.0-53.0); LYMPH # 0.8 x10^3/uL (1.0-4.8); LYMPH % 10 % (24-48); MEAN CORPUSCULAR HEMOGLOBIN 27 pg (25-35); MEAN CORPUSCULAR HGB CONC 33 g/dL (31-37); MEAN CORPUSCULAR VOLUME 84 fL (79-100); MONO % 11 % (0-9); NEUT % 77 % (31-73); PLATELET COUNT 158 x10^3/uL (140-400); RED BLOOD COUNT 4.73 x10^6/uL (4.30-5.70); RED CELL DISTRIBUTION WIDTH 15.4 % (11.5-14.5)
[2016-10-14 06:02] LABS: CALCIUM 8.3 mg/dL (8.5-10.1); CREATININE 1.2 mg/dL (0.7-1.3); GFR 62.4; POTASSIUM 3.3 mmol/L (3.5-5.1)
--- NOTE | 2016-10-14 07:54 | RAD ---
Indication shortness of breath. A single view of the chest was obtained and is compared to a study 2 days previously. Note is made of the CT examination of the chest also performed 10/12/2016. Heart size is unchanged. Pulmonary infiltrates, compatible with pulmonary edema, persist but appear slightly improved. There is volume loss involving the left lower lobe likely reflecting atelectasis. Underlying pneumonia is not entirely excluded. Endotracheal tube is appropriately positioned above the [place]. Nasogastric tube has its tip beyond the mid body of the stomach. IMPRESSION: Pulmonary infiltrates, compatible with pulmonary edema, persist but appear improved. Volume loss in the left lower lobe likely reflects atelectasis. Appropriately positioned endotracheal and nasogastric tubes
[2016-10-14 08:23] LABS: HCO3 ABG 24 mmol/L (21-28); PCO2 ABG 41 mmHg (35-46); PH ABG 7.39 (7.35-7.45); PO2 ABG 97 mmHg (75-108); SAT O2 ABG 97 % (92-99)
[2016-10-14] MEDS: FUROSEMIDE 40 MG/4 ML VIAL. IVP SCH (08:24)
[2016-10-14 08:27] LABS: FIO2 ABG 40
[2016-10-14 09:01] LABS: BILIRUBIN,URINE SMALL (NEG); GLUCOSE,URINE NEGATIVE (NEG)
[2016-10-14 09:02] LABS: BACTERIA,URINE MODERATE /HPF (0-FEW); NITRITE,URINE NEGATIVE (NEG); PH,URINE 5.5; PROTEIN,URINE 100 mg/dL (NEG-TRACE); RBC,URINE OCC /HPF (0-2); UROBILINOGEN,URINE 0.2 mg/dL (0.2 mg/dL)
[2016-10-14] MEDS: METOPROLOL TARTRATE 5 MG/5 ML VIAL. IVP PRN (09:50)
[2016-10-14] MEDS: hydrALAZINE 20 MG/ML VIAL. IVP PRN ×2 (10:05→21:12)
[2016-10-14 10:15] LABS: HCO3 ABG 24 mmol/L (21-28); PCO2 ABG 38 mmHg (35-46); PH ABG 7.42 (7.35-7.45); PO2 ABG 101 mmHg (75-108); SAT O2 ABG 98 % (92-99)
[2016-10-14 10:18] LABS: FIO2 ABG 40
--- NOTE | 2016-10-14 11:51 | PDOC ---
PROGRESS NOTES Chief Complaint Chief Complaint Resp failure on Vent New CHF Hep C Noncompliance Hypertension. History of Present Illness History of Present Illness In ICU Still on the vent, hope to extubate today? IRA RN and family Vitals Vitals Vital Signs Date Time Temp Pulse Resp B/P (MAP) Pulse Ox O2 Delivery O2 Flow Rate FiO2 10/14/16 11:13 86 25 160/102 (121) 96 Ventilator 10/14/16 10:50 3.0 10/14/16 04:00 98.2 98.2 Physical Exam General: Other (intubated/sedated ) Heart: Regular rate, Normal S1, Normal S2, Other (difficult to appreciate heart tones) Lungs: Clear Abdomen: Soft Extremities: No cyanosis, No edema, Normal pulses Skin: No rashes, No breakdown, No significant lesion Labs LABS Laboratory Tests Test 10/14/16 05:00 10/14/16 08:00 10/14/16 08:30 10/14/16 10:10 White Blood Count 8.0 x10^3/uL (4.0-11.0) Red Blood Count 4.73 x10^6/uL (4.30-5.70) Hemoglobin 13.0 g/dL (13.0-17.5) Hematocrit 39.8 % (39.0-53.0) Mean Corpuscular Volume 84 fL (79-100) Mean Corpuscular Hemoglobin 27 pg (25-35) Mean Corpuscular Hemoglobin Concent 33 g/dL (31-37) Red Cell Distribution Width 15.4 % (11.5-14.5) Platelet Count 158 x10^3/uL (140-400) Neutrophils (%) (Auto) 77 % (31-73) Lymphocytes (%) (Auto) 10 % (24-48) Monocytes (%) (Auto) 11 % (0-9) Eosinophils (%) (Auto) 1 % (0-3) Basophils (%) (Auto) 1 % (0-3) Neutrophils # (Auto) 6.2 x10^3uL (1.8-7.7) Lymphocytes # (Auto) 0.8 x10^3/uL (1.0-4.8) Monocytes # (Auto) 0.9 x10^3/uL (0.0-1.1) Eosinophils # (Auto) 0.1 x10^3/uL (0.0-0.7) Basophils # (Auto) 0.1 x10^3/uL (0.0-0.2) Sodium Level 148 mmol/L (136-145) Potassium Level 3.3 mmol/L (3.5-5.1) Chloride Level 113 mmol/L (98-107) Carbon Dioxide Level 28 mmol/L (21-32) Anion Gap 7 (6-14) Blood Urea Nitrogen 22 mg/dL (8-26) Creatinine 1.2 mg/dL (0.7-1.3) Estimated GFR (Cockcroft-Gault) 62.4 Glucose Level 101 mg/dL (70-99) Calcium Level 8.3 mg/dL (8.5-10.1) O2 Saturation 97 % (92-99) 98 % (92-99) Arterial Blood pH 7.39 (7.35-7.45) 7.42 (7.35-7.45) Arterial Blood pCO2 at Patient Temp 41 mmHg (35-46) 38 mmHg (35-46) Arterial Blood pO2 at Patient Temp 97 mmHg (75-108) 101 mmHg (75-108) Arterial Blood HCO3 24 mmol/L (21-28) 24 mmol/L (21-28) Arterial Blood Base Excess -1 mmol/L (-3-3) 0 mmol/L (-3-3) FiO2 40 40 Urine Collection Type U cath Urine Color Yellow Urine Clarity Clear Urine pH 5.5 Urine Specific [place] >=1.030 Urine Protein 100 mg/dL (NEG-TRACE) Urine Glucose (UA) Negative mg/dL (NEG) Urine Ketones (Stick) Negative mg/dL (NEG) Urine Blood Negative (NEG) Urine Nitrite Negative (NEG) Urine Bilirubin Small (NEG) Urine Urobilinogen Dipstick 0.2 mg/dL (0.2 mg/dL) Urine Leukocyte Esterase Negative (NEG) Urine RBC Occ /HPF (0-2) Urine WBC 5-10 /HPF (0-4) Urine Bacteria Moderate /HPF (0-FEW) Assessment and Plan Assessmemt and Plan Problems Medical Problems: (1) Acute congestive heart failure Status: Acute (2) Acute respiratory failure Status: Acute (3) Metabolic acidosis Status: Acute (4) Respiratory acidosis Status: Acute Resp failure on Vent New CHF Hep C Noncompliance Hypertension. Plan Hope to extubate today? Dean Huynh Recheck labs Prog guarded Total time 31 minutes Problems: Comment Review of Relevant I have reviewed the following items reese (where applicable) has been applied. Labs Laboratory Tests Test 10/12/16 23:02 10/12/16 23:29 10/13/16 02:13 10/13/16 02:55 White Blood Count 16.2 x10^3/uL (4.0-11.0) Red Blood Count 6.41 x10^6/uL (4.30-5.70) Hemoglobin 17.7 g/dL (13.0-17.5) Hematocrit 55.0 % (39.0-53.0) Mean Corpuscular Volume 86 fL (79-100) Mean Corpuscular Hemoglobin 28 pg (25-35) Mean Corpuscular Hemoglobin Concent 32 g/dL (31-37) Red Cell Distribution Width 15.5 % (11.5-14.5) Platelet Count 298 x10^3/uL (140-400) Neutrophils (%) (Auto) 72 % (31-73) Lymphocytes (%) (Auto) 18 % (24-48) Monocytes (%) (Auto) 8 % (0-9) Eosinophils (%) (Auto) 2 % (0-3) Basophils (%) (Auto) 0 % (0-3) Neutrophils # (Auto) 11.7 x10^3uL (1.8-7.7) Lymphocytes # (Auto) 2.9 x10^3/uL (1.0-4.8) Monocytes # (Auto) 1.4 x10^3/uL (0.0-1.1) Eosinophils # (Auto) 0.2 x10^3/uL (0.0-0.7) Basophils # (Auto) 0.1 x10^3/uL (0.0-0.2) Platelet Estimate Adequate (ADEQUATE) Large Platelets Few Giant Platelets Occ D-Dimer (Farzana) 1.22 ug/mlFEU (0.00-0.50) Sodium Level 145 mmol/L (136-145) Potassium Level 3.6 mmol/L (3.5-5.1) Chloride Level 105 mmol/L (98-107) Carbon Dioxide Level 24 mmol/L (21-32) Anion Gap 16 (6-14) Blood Urea Nitrogen 23 mg/dL (8-26) Creatinine 1.3 mg/dL (0.7-1.3) Estimated GFR (Cockcroft-Gault) 56.9 BUN/Creatinine Ratio 18 (6-20) Glucose Level 252 mg/dL (70-99) Lactic Acid Level 7.7 mmol/L (0.4-2.0) 1.9 mmol/L (0.4-2.0) Calcium Level 9.8 mg/dL (8.5-10.1) Total Bilirubin 0.4 mg/dL (0.2-1.0) Aspartate Amino Transf (AST/SGOT) 31 U/L (15-37) Alanine Aminotransferase (ALT/SGPT) 34 U/L (16-63) Alkaline Phosphatase 133 U/L (46-116) Creatine Kinase 167 U/L (39-308) Creatine Kinase MB (Mass) 5.1 ng/mL (0.0-3.6) Creatine Kinase MB Relative Index 3.1 % (0-4) Troponin I Quantitative 0.039 ng/mL (0.000-0.055) DO-Hux-A-Type Natriuretic Peptide 5033 pg/mL (0-124) Total Protein 9.1 g/dL (6.4-8.2) Albumin 4.2 g/dL (3.4-5.0) Albumin/Globulin Ratio 0.9 (1.0-1.7) O2 Saturation 99 % (92-99) Arterial Blood pH 7.21 (7.35-7.45) Arterial Blood pCO2 at Patient Temp 61 mmHg (35-46) Arterial Blood pO2 at Patient Temp 258 mmHg (75-108) Arterial Blood HCO3 23 mmol/L (21-28) Arterial Blood Base Excess -6 mmol/L (-3-3) FiO2 100 Nasal Screen MRSA (PCR) Negative (Negative) Hemoglobin A1c 6.5 % (4.8-5.6) Test 10/13/16 08:00 10/13/16 11:30 10/14/16 05:00 10/14/16 08:00 O2 Saturation 99 % (92-99) 97 % (92-99) Arterial Blood pH 7.42 (7.35-7.45) 7.39 (7.35-7.45) Arterial Blood pCO2 at Patient Temp 31 mmHg (35-46) 41 mmHg (35-46) Arterial Blood pO2 at Patient Temp 178 mmHg (75-108) 97 mmHg (75-108) Arterial Blood HCO3 20 mmol/L (21-28) 24 mmol/L (21-28) Arterial Blood Base Excess -4 mmol/L (-3-3) -1 mmol/L (-3-3) FiO2 65 40 Urine Opiates Screen Neg (NEG) Urine Methadone Screen Neg (NEG) Urine Barbiturates Neg (NEG) Urine Phencyclidine Screen Neg (NEG) Urine Amphetamine/Methamphetamine Neg (NEG) Urine Benzodiazepines Screen Neg (NEG) Urine Cocaine Screen Neg (NEG) Urine Cannabinoids Screen Pos (NEG) Urine Ethyl Alcohol Neg (NEG) White Blood Count 8.0 x10^3/uL (4.0-11.0) Red Blood Count 4.73 x10^6/uL (4.30-5.70) Hemoglobin 13.0 g/dL (13.0-17.5) Hematocrit 39.8 % (39.0-53.0) Mean Corpuscular Volume 84 fL (79-100) Mean Corpuscular Hemoglobin 27 pg (25-35) Mean Corpuscular Hemoglobin Concent 33 g/dL (31-37) Red Cell Distribution Width 15.4 % (11.5-14.5) Platelet Count 158 x10^3/uL (140-400) Neutrophils (%) (Auto) 77 % (31-73) Lymphocytes (%) (Auto) 10 % (24-48) Monocytes (%) (Auto) 11 % (0-9) Eosinophils (%) (Auto) 1 % (0-3) Basophils (%) (Auto) 1 % (0-3) Neutrophils # (Auto) 6.2 x10^3uL (1.8-7.7) Lymphocytes # (Auto) 0.8 x10^3/uL (1.0-4.8) Monocytes # (Auto) 0.9 x10^3/uL (0.0-1.1) Eosinophils # (Auto) 0.1 x10^3/uL (0.0-0.7) Basophils # (Auto) 0.1 x10^3/uL (0.0-0.2) Sodium Level 148 mmol/L (136-145) Potassium Level 3.3 mmol/L (3.5-5.1) Chloride Level 113 mmol/L (98-107) Carbon Dioxide Level 28 mmol/L (21-32) Anion Gap 7 (6-14) Blood Urea Nitrogen 22 mg/dL (8-26) Creatinine 1.2 mg/dL (0.7-1.3) Estimated GFR (Cockcroft-Gault) 62.4 Glucose Level 101 mg/dL (70-99) Calcium Level 8.3 mg/dL (8.5-10.1) Test 10/14/16 08:30 10/14/16 10:10 Urine Collection Type U cath Urine Color Yellow Urine Clarity Clear Urine pH 5.5 Urine Specific [place] >=1.030 Urine Protein 100 mg/dL (NEG-TRACE) Urine Glucose (UA) Negative mg/dL (NEG) Urine Ketones (Stick) Negative mg/dL (NEG) Urine Blood Negative (NEG) Urine Nitrite Negative (NEG) Urine Bilirubin Small (NEG) Urine Urobilinogen Dipstick 0.2 mg/dL (0.2 mg/dL) Urine Leukocyte Esterase Negative (NEG) Urine RBC Occ /HPF (0-2) Urine WBC 5-10 /HPF (0-4) Urine Bacteria Moderate /HPF (0-FEW) O2 Saturation 98 % (92-99) Arterial Blood pH 7.42 (7.35-7.45) Arterial Blood pCO2 at Patient Temp 38 mmHg (35-46) Arterial Blood pO2 at Patient Temp 101 mmHg (75-108) Arterial Blood HCO3 24 mmol/L (21-28) Arterial Blood Base Excess 0 mmol/L (-3-3) FiO2 40 Laboratory Tests Test 10/14/16 05:00 10/14/16 08:00 10/14/16 08:30 10/14/16 10:10 White Blood Count 8.0 x10^3/uL (4.0-11.0) Red Blood Count 4.73 x10^6/uL (4.30-5.70) Hemoglobin 13.0 g/dL (13.0-17.5) Hematocrit 39.8 % (39.0-53.0) Mean Corpuscular Volume 84 fL (79-100) Mean Corpuscular Hemoglobin 27 pg (25-35) Mean Corpuscular Hemoglobin Concent 33 g/dL (31-37) Red Cell Distribution Width 15.4 % (11.5-14.5) Platelet Count 158 x10^3/uL (140-400) Neutrophils (%) (Auto) 77 % (31-73) Lymphocytes (%) (Auto) 10 % (24-48) Monocytes (%) (Auto) 11 % (0-9) Eosinophils (%) (Auto) 1 % (0-3) Basophils (%) (Auto) 1 % (0-3) Neutrophils # (Auto) 6.2 x10^3uL (1.8-7.7) Lymphocytes # (Auto) 0.8 x10^3/uL (1.0-4.8) Monocytes # (Auto) 0.9 x10^3/uL (0.0-1.1) Eosinophils # (Auto) 0.1 x10^3/uL (0.0-0.7) Basophils # (Auto) 0.1 x10^3/uL (0.0-0.2) Sodium Level 148 mmol/L (136-145) Potassium Level 3.3 mmol/L (3.5-5.1) Chloride Level 113 mmol/L (98-107) Carbon Dioxide Level 28 mmol/L (21-32) Anion Gap 7 (6-14) Blood Urea Nitrogen 22 mg/dL (8-26) Creatinine 1.2 mg/dL (0.7-1.3) Estimated GFR (Cockcroft-Gault) 62.4 Glucose Level 101 mg/dL (70-99) Calcium Level 8.3 mg/dL (8.5-10.1) O2 Saturation 97 % (92-99) 98 % (92-99) Arterial Blood pH 7.39 (7.35-7.45) 7.42 (7.35-7.45) Arterial Blood pCO2 at Patient Temp 41 mmHg (35-46) 38 mmHg (35-46) Arterial Blood pO2 at Patient Temp 97 mmHg (75-108) 101 mmHg (75-108) Arterial Blood HCO3 24 mmol/L (21-28) 24 mmol/L (21-28) Arterial Blood Base Excess -1 mmol/L (-3-3) 0 mmol/L (-3-3) FiO2 40 40 Urine Collection Type U cath Urine Color Yellow Urine Clarity Clear Urine pH 5.5 Urine Specific [place] >=1.030 Urine Protein 100 mg/dL (NEG-TRACE) Urine Glucose (UA) Negative mg/dL (NEG) Urine Ketones (Stick) Negative mg/dL (NEG) Urine Blood Negative (NEG) Urine Nitrite Negative (NEG) Urine Bilirubin Small (NEG) Urine Urobilinogen Dipstick 0.2 mg/dL (0.2 mg/dL) Urine Leukocyte Esterase Negative (NEG) Urine RBC Occ /HPF (0-2) Urine WBC 5-10 /HPF (0-4) Urine Bacteria Moderate /HPF (0-FEW) Microbiology 10/13/16 Blood Culture - Preliminary, Resulted NO GROWTH AFTER 1 DAY Medications Current Medications Propofol 50 ml @ As Directed STK-MED ONCE IV ; Start 10/12/16 at 23:15; Stop at 23:16; Status DC Sodium Chloride 1,000 ml @ 1,000 mls/hr Q1H IV Last administered on 10/12/16 23:15; Start 10/12/16 at 23:45; Stop 10/13/16 at 00:44; Status DC Nitroglycerin/ Dextrose 250 ml @ 0 mls/hr CONT PRN IV SEE I/O RECORD Last administered on 10/12/16 23:56; Start 10/12/16 at 23:30; Stop 10/13/16 at 11:14 ; Status DC Propofol 100 ml @ 0 mls/hr CONT PRN IV SEE I/O RECORD Last administered on 10/14 03:28; Start 10/12/16 at 23:45 Propofol 50 ml @ 0 mls/hr 1X ONCE IV Last administered on 10/12/16 23:18; Start 10/12/16 at 23:45; Stop 10/12/16 at 23:46; Status DC Furosemide (Lasix) 80 mg 1X ONCE IVP Last administered on 10/12/16 22:48; Start 10/12/16 at 23:45; Stop 10/12/16 at 23:46; Status DC Rocuronium [place] (Zemuron) 50 mg 1X ONCE IV Last administered on 10/13/16 00:15; Start 10/13/16 at 00:15; Stop 10/13/16 at 00:16; Status DC Etomidate (Amidate) 20 mg 1X ONCE IV Last administered on 10/12/16 23:10; Start 10/13/16 at 00:30; Stop 10/13/16 at 00:31; Status DC Iohexol (Omnipaque 300 Mg/ml) 60 ml 1X ONCE IV Last administered on 10/13/16 01:03; Start 10/13/16 at 01:00; Stop 10/13/16 at 01:01; Status DC Info (Do NOT chart on this entry -- for MONITORING) 1 each PRN DAILY PRN MC SEE COMMENTS; Start 10/13/16 at 00:30; Stop 10/15/16 at 00:29 Ondansetron HCl (Zofran) 4 mg PRN Q8HRS PRN IV NAUSEA/VOMITING; Start 10/13/16 at 01:15; Stop 10/14/16 at 01:14; Status DC Sodium Chloride 1,000 ml @ 125 mls/hr Q8H IV Last administered on 10/13/16 17 :43; Start 10/13/16 at 01:09; Stop 10/14/16 at 01:08; Status DC Acetaminophen (Tylenol) 650 mg PRN Q4HRS PRN PO FEVER; Start 10/13/16 at 01:15 ; Stop 10/14/16 at 01:14; Status DC Levofloxacin/ Dextrose (Levaquin Per Pharmacy) 1 each PRN DAILY PRN MC SEE COMMENTS; Start 10/13/16 at 01:45 Levofloxacin/ Dextrose 100 ml @ 100 mls/hr 1X ONCE IV Last administered on 02:29; Start 10/13/16 at 02:00; Stop 10/13/16 at 02:59; Status DC Rocuronium [place] (Zemuron) 50 mg 1X ONCE IV Last administered on 10/12/16 23:10; Start 10/13/16 at 02:15; Stop 10/13/16 at 02:26; Status DC Levofloxacin/ Dextrose 100 ml @ 100 mls/hr Q24H IV Last administered on 23:09; Start 10/13/16 at 23:00 Sodium Chloride 500 ml @ 500 mls/hr 1X ONCE IV Last administered on 01:13; Start 10/13/16 at 03:30; Stop 10/13/16 at 04:29; Status DC Furosemide (Lasix) 40 mg DAILY IVP Last administered on 10/14/16 08:24; Start 10/13/16 at 11:15 Metoprolol Tartrate (Lopressor) 5 mg PRN Q6HRS PRN IVP systolic >150 Last administered on 10/14/16 09:50; Start 10/14/16 at 09:45 Hydralazine HCl (Apresoline) 10 mg PRN Q4HRS PRN IVP systolic >160 Last administered on 10/14/16 10:05; Start 10/14/16 at 09:45 Active Scripts Active Hydrocodone-Apap 5-325 (Hydrocodone Bit/Acetaminophen) 1 Each Tablet 1-2 Tab PO PRN Q6HRS PRN Lisinopril 10 Mg Tablet 1 Tab PO DAILY Vitals/I & O Vital Sign - Last 24 Hours 10/13/16 10/13/16 10/13/16 10/13/16 12:04 12:08 13:00 13:10 Temp 99.2 99.2 Pulse 68 68 Resp 23 23 B/P (MAP) 106/69 (81) 101/69 (80) Pulse Ox 97 98 98 O2 Delivery Ventilator Mechanical Ventilator Ventilator Ventilator O2 Flow Rate 15.0 10/13/16 10/13/16 10/13/16 10/13/16 14:00 14:51 15:00 15:58 Pulse 70 76 Resp 24 18 B/P (MAP) 116/75 (89) 123/79 (94) Pulse Ox 98 99 99 O2 Delivery Ventilator Ventilator Ventilator Mechanical Ventilator O2 Flow Rate 15.0 10/13/16 10/13/16 10/13/16 10/13/16 17:00 17:03 18:17 19:00 Temp 99.9 99.9 Pulse 72 70 70 Resp 16 16 13 B/P (MAP) 120/76 (91) 126/79 (95) 132/89 (103) Pulse Ox 99 99 99 99 O2 Delivery Ventilator Ventilator Ventilator Ventilator 10/13/16 10/13/16 10/13/16 10/13/16 20:00 20:00 20:54 21:00 Temp 99.7 99.7 Pulse 70 68 Resp 14 13 B/P (MAP) 120/77 (91) 121/79 (93) Pulse Ox 99 98 99 O2 Delivery Ventilator Mechanical Ventilator Ventilator Ventilator 10/13/16 10/13/16 10/13/16 10/13/16 22:00 23:00 23:07 23:59 Pulse 70 69 Resp 23 B/P (MAP) 113/72 (86) 126/80 (95) Pulse Ox 99 97 97 O2 Delivery Ventilator Ventilator Ventilator Mechanical Ventilator 10/14/16 10/14/16 10/14/16 10/14/16 00:00 00:56 01:00 02:00 Temp 98.8 98.8 Pulse 62 60 58 Resp 12 11 B/P (MAP) 122/77 (92) 117/75 (89) 117/81 (93) Pulse Ox 96 97 99 99 O2 Delivery Ventilator Ventilator Ventilator Ventilator 10/14/16 10/14/16 10/14/16 10/14/16 03:00 03:20 04:00 04:00 Temp 98.2 98.2 Pulse 60 58 Resp 12 B/P (MAP) 113/76 (88) 115/78 (90) Pulse Ox 99 99 99 O2 Delivery Ventilator Ventilator Ventilator Mechanical Ventilator 10/14/16 10/14/16 10/14/16 10/14/16 05:00 06:00 07:15 08:00 Pulse 62 60 67 67 Resp 12 12 21 21 B/P (MAP) 115/83 (94) 122/83 (96) 149/95 (113) 149/95 (113) Pulse Ox 99 99 99 99 O2 Delivery Ventilator Ventilator Ventilator Ventilator 10/14/16 10/14/16 10/14/16 10/14/16 08:00 08:00 09:00 09:05 Pulse 78 Resp 21 B/P (MAP) 196/96 (129) Pulse Ox 99 99 O2 Delivery Ventilator Mechanical Ventilator Ventilator Ventilator O2 Flow Rate 15.0 10/14/16 10/14/16 10/14/16 10/14/16 09:50 10:05 10:16 10:50 Pulse 91 82 88 Resp 26 B/P (MAP) 196/132 192/132 166/111 (129) Pulse Ox 96 94 O2 Delivery Ventilator Nasal Cannula O2 Flow Rate 3.0 10/14/16 10/14/16 10:50 11:13 Pulse 86 Resp 25 B/P (MAP) 160/102 (121) Pulse Ox 96 O2 Delivery Nasal Cannula Ventilator O2 Flow Rate 3.0 Intake and Output 5/10/13/16 10/14/16 15:00 23:00 07:00 Intake Total 2635 ml Output Total 1065 ml 462 ml 169 ml Balance -1065 ml 2173 ml -169 ml ALEXANDRIA PALACIO III DO October 14, 2016 11:51
--- NOTE | 2016-10-14 12:42 | PDOC ---
[facility] Progress Notes Date and Time Date of Service 10/14/16 Time of Evaluation 1210 Subjective Subjective: Other (extubated. Cough. Mild SOA) Vitals Vitals Vital Signs Date Time Temp Pulse Resp B/P (MAP) Pulse Ox O2 Delivery O2 Flow Rate FiO2 10/14/16 12:11 Mechanical Ventilator 3.0 10/14/16 12:11 85 24 159/99 (119) 97 10/14/16 04:00 98.2 98.2 Weight Weight [ ] Input and Output Intake and Output Intake and Output 10/14/16 07:00 Intake Total 2635 ml Output Total 1696 ml Balance 939 ml Intake IV Total 1000 ml Other 1635 ml Output Urine Total 1696 ml Laboratory Labs Laboratory Tests Test 10/14/16 05:00 10/14/16 08:00 10/14/16 08:30 10/14/16 10:10 White Blood Count 8.0 x10^3/uL (4.0-11.0) Red Blood Count 4.73 x10^6/uL (4.30-5.70) Hemoglobin 13.0 g/dL (13.0-17.5) Hematocrit 39.8 % (39.0-53.0) Mean Corpuscular Volume 84 fL (79-100) Mean Corpuscular Hemoglobin 27 pg (25-35) Mean Corpuscular Hemoglobin Concent 33 g/dL (31-37) Red Cell Distribution Width 15.4 % (11.5-14.5) Platelet Count 158 x10^3/uL (140-400) Neutrophils (%) (Auto) 77 % (31-73) Lymphocytes (%) (Auto) 10 % (24-48) Monocytes (%) (Auto) 11 % (0-9) Eosinophils (%) (Auto) 1 % (0-3) Basophils (%) (Auto) 1 % (0-3) Neutrophils # (Auto) 6.2 x10^3uL (1.8-7.7) Lymphocytes # (Auto) 0.8 x10^3/uL (1.0-4.8) Monocytes # (Auto) 0.9 x10^3/uL (0.0-1.1) Eosinophils # (Auto) 0.1 x10^3/uL (0.0-0.7) Basophils # (Auto) 0.1 x10^3/uL (0.0-0.2) Sodium Level 148 mmol/L (136-145) Potassium Level 3.3 mmol/L (3.5-5.1) Chloride Level 113 mmol/L (98-107) Carbon Dioxide Level 28 mmol/L (21-32) Anion Gap 7 (6-14) Blood Urea Nitrogen 22 mg/dL (8-26) Creatinine 1.2 mg/dL (0.7-1.3) Estimated GFR (Cockcroft-Gault) 62.4 Glucose Level 101 mg/dL (70-99) Calcium Level 8.3 mg/dL (8.5-10.1) O2 Saturation 97 % (92-99) 98 % (92-99) Arterial Blood pH 7.39 (7.35-7.45) 7.42 (7.35-7.45) Arterial Blood pCO2 at Patient Temp 41 mmHg (35-46) 38 mmHg (35-46) Arterial Blood pO2 at Patient Temp 97 mmHg (75-108) 101 mmHg (75-108) Arterial Blood HCO3 24 mmol/L (21-28) 24 mmol/L (21-28) Arterial Blood Base Excess -1 mmol/L (-3-3) 0 mmol/L (-3-3) FiO2 40 40 Urine Collection Type U cath Urine Color Yellow Urine Clarity Clear Urine pH 5.5 Urine Specific [place] >=1.030 Urine Protein 100 mg/dL (NEG-TRACE) Urine Glucose (UA) Negative mg/dL (NEG) Urine Ketones (Stick) Negative mg/dL (NEG) Urine Blood Negative (NEG) Urine Nitrite Negative (NEG) Urine Bilirubin Small (NEG) Urine Urobilinogen Dipstick 0.2 mg/dL (0.2 mg/dL) Urine Leukocyte Esterase Negative (NEG) Urine RBC Occ /HPF (0-2) Urine WBC 5-10 /HPF (0-4) Urine Bacteria Moderate /HPF (0-FEW) Microbiology Micro Microbiology 10/13/16 Blood Culture - Preliminary, Resulted NO GROWTH AFTER 1 DAY Physical Exam HEENT: Neck Supple W Full Motion Chest: Symmetric LUNGS: Other (caorse throughout ) Heart: S1S2, RRR, no murmurs Abdomen: Soft N/T Extremities: 2+ Dorsalis Pedis, Other (trace LE edema ) Neurology: alert, oriented, follow commands Assessment Assessment 1. Acute systolic heart failure Echo shows depressed LV function with an EF of 25-30% etiology of cardiomyopathy unknown; will need further ischemic workup when acute issues resolve, possibly early next week. Add ASA, BB, and statin continue with diuresis with monitoring of renal function 2. Malignant hypertension labile with extubation trail. non-compliance with aniHTN therapy; has not taken in a couple of year. SBP generally runs 170-190's per patient Add LIDIA/BB. Hydralazine IV PRN Titrate up as warranted 3. Acute respiratory failure multifactorial given PNA and acute systolic HF extubated 10/14 per pulm 4. Leukocytosis IV antibiotics per IM 5. Lactic acidosis 6. Hyperglycemia ?stress induced check A1C 7. substance use UDS + marijuana 8. Hypokalemia replace. Check Mg 9. Tobaccoism cessation discussed and encouraged. HARINI MALDONADO APRN October 14, 2016 12:42
[2016-10-14] MEDS ORDERED: POTASSIUM CHLORIDE 20 MEQ TABLET.ER. PO ONE (13:00)
--- NOTE | 2016-10-14 13:32 | PDOC ---
PULMONARY PROGRESS NOTES Subjective pt with no complaints Vitals Vital Signs Date Time Temp Pulse Resp B/P (MAP) Pulse Ox O2 Delivery O2 Flow Rate FiO2 10/14/16 13:20 84 22 155/88 (110) 98 Ventilator 10/14/16 12:11 3.0 10/14/16 04:00 98.2 98.2 ROS: No Nausea, No Chest Pain, No Abdominal Pain, No Increase Cough General: Alert Lungs: Clear Cardiovascular: S1, S2 Abdomen: Soft Neuro Exam: Alert Extremities: No Edema Skin: Warm, Dry Labs Laboratory Tests Test 10/12/16 23:02 10/12/16 23:29 10/13/16 02:13 10/13/16 02:55 White Blood Count 16.2 x10^3/uL (4.0-11.0) Red Blood Count 6.41 x10^6/uL (4.30-5.70) Hemoglobin 17.7 g/dL (13.0-17.5) Hematocrit 55.0 % (39.0-53.0) Mean Corpuscular Volume 86 fL (79-100) Mean Corpuscular Hemoglobin 28 pg (25-35) Mean Corpuscular Hemoglobin Concent 32 g/dL (31-37) Red Cell Distribution Width 15.5 % (11.5-14.5) Platelet Count 298 x10^3/uL (140-400) Neutrophils (%) (Auto) 72 % (31-73) Lymphocytes (%) (Auto) 18 % (24-48) Monocytes (%) (Auto) 8 % (0-9) Eosinophils (%) (Auto) 2 % (0-3) Basophils (%) (Auto) 0 % (0-3) Neutrophils # (Auto) 11.7 x10^3uL (1.8-7.7) Lymphocytes # (Auto) 2.9 x10^3/uL (1.0-4.8) Monocytes # (Auto) 1.4 x10^3/uL (0.0-1.1) Eosinophils # (Auto) 0.2 x10^3/uL (0.0-0.7) Basophils # (Auto) 0.1 x10^3/uL (0.0-0.2) Platelet Estimate Adequate (ADEQUATE) Large Platelets Few Giant Platelets Occ D-Dimer (Farzana) 1.22 ug/mlFEU (0.00-0.50) Sodium Level 145 mmol/L (136-145) Potassium Level 3.6 mmol/L (3.5-5.1) Chloride Level 105 mmol/L (98-107) Carbon Dioxide Level 24 mmol/L (21-32) Anion Gap 16 (6-14) Blood Urea Nitrogen 23 mg/dL (8-26) Creatinine 1.3 mg/dL (0.7-1.3) Estimated GFR (Cockcroft-Gault) 56.9 BUN/Creatinine Ratio 18 (6-20) Glucose Level 252 mg/dL (70-99) Lactic Acid Level 7.7 mmol/L (0.4-2.0) 1.9 mmol/L (0.4-2.0) Calcium Level 9.8 mg/dL (8.5-10.1) Total Bilirubin 0.4 mg/dL (0.2-1.0) Aspartate Amino Transf (AST/SGOT) 31 U/L (15-37) Alanine Aminotransferase (ALT/SGPT) 34 U/L (16-63) Alkaline Phosphatase 133 U/L (46-116) Creatine Kinase 167 U/L (39-308) Creatine Kinase MB (Mass) 5.1 ng/mL (0.0-3.6) Creatine Kinase MB Relative Index 3.1 % (0-4) Troponin I Quantitative 0.039 ng/mL (0.000-0.055) PI-Naa-Z-Type Natriuretic Peptide 5033 pg/mL (0-124) Total Protein 9.1 g/dL (6.4-8.2) Albumin 4.2 g/dL (3.4-5.0) Albumin/Globulin Ratio 0.9 (1.0-1.7) O2 Saturation 99 % (92-99) Arterial Blood pH 7.21 (7.35-7.45) Arterial Blood pCO2 at Patient Temp 61 mmHg (35-46) Arterial Blood pO2 at Patient Temp 258 mmHg (75-108) Arterial Blood HCO3 23 mmol/L (21-28) Arterial Blood Base Excess -6 mmol/L (-3-3) FiO2 100 Nasal Screen MRSA (PCR) Negative (Negative) Hemoglobin A1c 6.5 % (4.8-5.6) Test 10/13/16 08:00 10/13/16 11:30 10/14/16 05:00 10/14/16 08:00 O2 Saturation 99 % (92-99) 97 % (92-99) Arterial Blood pH 7.42 (7.35-7.45) 7.39 (7.35-7.45) Arterial Blood pCO2 at Patient Temp 31 mmHg (35-46) 41 mmHg (35-46) Arterial Blood pO2 at Patient Temp 178 mmHg (75-108) 97 mmHg (75-108) Arterial Blood HCO3 20 mmol/L (21-28) 24 mmol/L (21-28) Arterial Blood Base Excess -4 mmol/L (-3-3) -1 mmol/L (-3-3) FiO2 65 40 Urine Opiates Screen Neg (NEG) Urine Methadone Screen Neg (NEG) Urine Barbiturates Neg (NEG) Urine Phencyclidine Screen Neg (NEG) Urine Amphetamine/Methamphetamine Neg (NEG) Urine Benzodiazepines Screen Neg (NEG) Urine Cocaine Screen Neg (NEG) Urine Cannabinoids Screen Pos (NEG) Urine Ethyl Alcohol Neg (NEG) White Blood Count 8.0 x10^3/uL (4.0-11.0) Red Blood Count 4.73 x10^6/uL (4.30-5.70) Hemoglobin 13.0 g/dL (13.0-17.5) Hematocrit 39.8 % (39.0-53.0) Mean Corpuscular Volume 84 fL (79-100) Mean Corpuscular Hemoglobin 27 pg (25-35) Mean Corpuscular Hemoglobin Concent 33 g/dL (31-37) Red Cell Distribution Width 15.4 % (11.5-14.5) Platelet Count 158 x10^3/uL (140-400) Neutrophils (%) (Auto) 77 % (31-73) Lymphocytes (%) (Auto) 10 % (24-48) Monocytes (%) (Auto) 11 % (0-9) Eosinophils (%) (Auto) 1 % (0-3) Basophils (%) (Auto) 1 % (0-3) Neutrophils # (Auto) 6.2 x10^3uL (1.8-7.7) Lymphocytes # (Auto) 0.8 x10^3/uL (1.0-4.8) Monocytes # (Auto) 0.9 x10^3/uL (0.0-1.1) Eosinophils # (Auto) 0.1 x10^3/uL (0.0-0.7) Basophils # (Auto) 0.1 x10^3/uL (0.0-0.2) Sodium Level 148 mmol/L (136-145) Potassium Level 3.3 mmol/L (3.5-5.1) Chloride Level 113 mmol/L (98-107) Carbon Dioxide Level 28 mmol/L (21-32) Anion Gap 7 (6-14) Blood Urea Nitrogen 22 mg/dL (8-26) Creatinine 1.2 mg/dL (0.7-1.3) Estimated GFR (Cockcroft-Gault) 62.4 Glucose Level 101 mg/dL (70-99) Calcium Level 8.3 mg/dL (8.5-10.1) Magnesium Level 2.1 mg/dL (1.8-2.4) Triglycerides Level 126 mg/dL (0-150) Cholesterol Level 167 mg/dL (0-200) LDL Cholesterol, Calculated 114 mg/dL (0-100) VLDL Cholesterol, Calculated 25 mg/dL (0-40) Non-HDL Cholesterol Calculated 139 mg/dL (0-129) HDL Cholesterol 28 mg/dL (40-60) Cholesterol/HDL Ratio 6.0 Test 10/14/16 08:30 10/14/16 10:10 Urine Collection Type U cath Urine Color Yellow Urine Clarity Clear Urine pH 5.5 Urine Specific [place] >=1.030 Urine Protein 100 mg/dL (NEG-TRACE) Urine Glucose (UA) Negative mg/dL (NEG) Urine Ketones (Stick) Negative mg/dL (NEG) Urine Blood Negative (NEG) Urine Nitrite Negative (NEG) Urine Bilirubin Small (NEG) Urine Urobilinogen Dipstick 0.2 mg/dL (0.2 mg/dL) Urine Leukocyte Esterase Negative (NEG) Urine RBC Occ /HPF (0-2) Urine WBC 5-10 /HPF (0-4) Urine Bacteria Moderate /HPF (0-FEW) O2 Saturation 98 % (92-99) Arterial Blood pH 7.42 (7.35-7.45) Arterial Blood pCO2 at Patient Temp 38 mmHg (35-46) Arterial Blood pO2 at Patient Temp 101 mmHg (75-108) Arterial Blood HCO3 24 mmol/L (21-28) Arterial Blood Base Excess 0 mmol/L (-3-3) FiO2 40 Laboratory Tests Test 10/14/16 05:00 10/14/16 08:00 10/14/16 08:30 10/14/16 10:10 White Blood Count 8.0 x10^3/uL (4.0-11.0) Red Blood Count 4.73 x10^6/uL (4.30-5.70) Hemoglobin 13.0 g/dL (13.0-17.5) Hematocrit 39.8 % (39.0-53.0) Mean Corpuscular Volume 84 fL (79-100) Mean Corpuscular Hemoglobin 27 pg (25-35) Mean Corpuscular Hemoglobin Concent 33 g/dL (31-37) Red Cell Distribution Width 15.4 % (11.5-14.5) Platelet Count 158 x10^3/uL (140-400) Neutrophils (%) (Auto) 77 % (31-73) Lymphocytes (%) (Auto) 10 % (24-48) Monocytes (%) (Auto) 11 % (0-9) Eosinophils (%) (Auto) 1 % (0-3) Basophils (%) (Auto) 1 % (0-3) Neutrophils # (Auto) 6.2 x10^3uL (1.8-7.7) Lymphocytes # (Auto) 0.8 x10^3/uL (1.0-4.8) Monocytes # (Auto) 0.9 x10^3/uL (0.0-1.1) Eosinophils # (Auto) 0.1 x10^3/uL (0.0-0.7) Basophils # (Auto) 0.1 x10^3/uL (0.0-0.2) Sodium Level 148 mmol/L (136-145) Potassium Level 3.3 mmol/L (3.5-5.1) Chloride Level 113 mmol/L (98-107) Carbon Dioxide Level 28 mmol/L (21-32) Anion Gap 7 (6-14) Blood Urea Nitrogen 22 mg/dL (8-26) Creatinine 1.2 mg/dL (0.7-1.3) Estimated GFR (Cockcroft-Gault) 62.4 Glucose Level 101 mg/dL (70-99) Calcium Level 8.3 mg/dL (8.5-10.1) Magnesium Level 2.1 mg/dL (1.8-2.4) Triglycerides Level 126 mg/dL (0-150) Cholesterol Level 167 mg/dL (0-200) LDL Cholesterol, Calculated 114 mg/dL (0-100) VLDL Cholesterol, Calculated 25 mg/dL (0-40) Non-HDL Cholesterol Calculated 139 mg/dL (0-129) HDL Cholesterol 28 mg/dL (40-60) Cholesterol/HDL Ratio 6.0 O2 Saturation 97 % (92-99) 98 % (92-99) Arterial Blood pH 7.39 (7.35-7.45) 7.42 (7.35-7.45) Arterial Blood pCO2 at Patient Temp 41 mmHg (35-46) 38 mmHg (35-46) Arterial Blood pO2 at Patient Temp 97 mmHg (75-108) 101 mmHg (75-108) Arterial Blood HCO3 24 mmol/L (21-28) 24 mmol/L (21-28) Arterial Blood Base Excess -1 mmol/L (-3-3) 0 mmol/L (-3-3) FiO2 40 40 Urine Collection Type U cath Urine Color Yellow Urine Clarity Clear Urine pH 5.5 Urine Specific [place] >=1.030 Urine Protein 100 mg/dL (NEG-TRACE) Urine Glucose (UA) Negative mg/dL (NEG) Urine Ketones (Stick) Negative mg/dL (NEG) Urine Blood Negative (NEG) Urine Nitrite Negative (NEG) Urine Bilirubin Small (NEG) Urine Urobilinogen Dipstick 0.2 mg/dL (0.2 mg/dL) Urine Leukocyte Esterase Negative (NEG) Urine RBC Occ /HPF (0-2) Urine WBC 5-10 /HPF (0-4) Urine Bacteria Moderate /HPF (0-FEW) Medications Active Scripts Medications Dose Route/Sig Max Daily Dose Days Date Category Hydrocodone-Apap 5-325 (Hydrocodone Bit/Acetaminophen) 1 Each Tablet 1-2 Tab PO PRN Q6HRS PRN 08/04/16 Rx Lisinopril 10 Mg Tablet 1 Tab PO DAILY 08/04/16 Rx Impression . 1. Acute respiratory failure, multifactorial secondary to acute pulmonary edema and pneumonia. 2. Pneumonia. 3. Acute systolic heart failure. The patient had echocardiogram revealing an ejection fraction of 25%. 4. Metabolic acidosis related to increased work of breathing. 5. Tobacco dependence. 6. Hypertension. 7. Hepatitis. Plan . did well on trial and extubated 1. Workup per Cardiology, may need ischemic workup, in future 2. Diurese. 3. Control blood pressure. 4. Continue Levaquin. 5. Monitor chest x-ray, 6. The patient instructed on the importance of discontinuing tobacco use. JOVANNA MAYER MD October 14, 2016 13:32
[2016-10-14] MEDS: LISINOPRIL 10 MG TABLET PO SCH (13:43)
[2016-10-14] MEDS: METOPROLOL SUCC 24HR ER 25 MG TAB.ER.24H. PO SCH (13:45)
[2016-10-14] MEDS: ASPIRIN ENTERIC COATED 81 MG TABLET.DR. PO SCH (13:45)
[2016-10-14] MEDS: ATORVASTATIN CALCIUM 40 MG TABLET. PO SCH (20:05)
[2016-10-15 03:17] VITALS: BP 145/102
[2016-10-15 05:43] LABS: CALCIUM 8.4 mg/dL (8.5-10.1); CREATININE 0.9 mg/dL (0.7-1.3); MAGNESIUM 1.9 mg/dL (1.8-2.4); POTASSIUM 3.1 mmol/L (3.5-5.1)
[2016-10-15 07:00] VITALS: BP 173/102
[2016-10-15] MEDS ORDERED: POTASSIUM CHLORIDE 20 MEQ TABLET.ER. PO ONE (08:15)
--- NOTE | 2016-10-15 08:15 | RAD ---
EXAM: Chest, single view. HISTORY: Edema. COMPARISON: 10/14/2016. FINDINGS: A frontal view of the chest is obtained. There has been complete to near complete resolution of recently demonstrated lower lobe predominant interstitial infiltrate. There is no consolidation, effusion or pneumothorax. The heart is normal in size for portable technique. IMPRESSION: Complete to near complete resolution of recently demonstrated lower lobe predominant diffuse interstitial infiltrate.
[2016-10-15] MEDS: LISINOPRIL 10 MG TABLET PO SCH (08:47)
[2016-10-15] MEDS: METOPROLOL SUCC 24HR ER 25 MG TAB.ER.24H. PO SCH (08:47)
[2016-10-15] MEDS: POTASSIUM CHLORIDE 20 MEQ TABLET.ER. PO SCH (08:49)
[2016-10-15] MEDS: hydrALAZINE 20 MG/ML VIAL. IVP PRN (08:51)
[2016-10-15] MEDS: FUROSEMIDE 40 MG/4 ML VIAL. IVP SCH (08:52)
[2016-10-15] MEDS: ASPIRIN ENTERIC COATED 81 MG TABLET.DR. PO SCH (08:52)
--- NOTE | 2016-10-15 10:27 | PDOC ---
PULMONARY PROGRESS NOTES Subjective pt with no complaints Vitals Vital Signs Date Time Temp Pulse Resp B/P (MAP) Pulse Ox O2 Delivery O2 Flow Rate FiO2 10/15/16 08:51 81 173/102 10/15/16 08:00 Room Air 3.0 10/15/16 07:00 98.6 20 96 98.6 ROS: No Nausea, No Chest Pain, No Abdominal Pain, No Increase Cough General: Alert Lungs: Clear Cardiovascular: S1, S2 Abdomen: Soft Neuro Exam: Alert Extremities: No Edema Skin: Warm, Dry Labs Laboratory Tests Test 10/13/16 11:30 10/14/16 05:00 10/14/16 08:00 10/14/16 08:30 Urine Opiates Screen Neg (NEG) Urine Methadone Screen Neg (NEG) Urine Barbiturates Neg (NEG) Urine Phencyclidine Screen Neg (NEG) Urine Amphetamine/Methamphetamine Neg (NEG) Urine Benzodiazepines Screen Neg (NEG) Urine Cocaine Screen Neg (NEG) Urine Cannabinoids Screen Pos (NEG) Urine Ethyl Alcohol Neg (NEG) White Blood Count 8.0 x10^3/uL (4.0-11.0) Red Blood Count 4.73 x10^6/uL (4.30-5.70) Hemoglobin 13.0 g/dL (13.0-17.5) Hematocrit 39.8 % (39.0-53.0) Mean Corpuscular Volume 84 fL (79-100) Mean Corpuscular Hemoglobin 27 pg (25-35) Mean Corpuscular Hemoglobin Concent 33 g/dL (31-37) Red Cell Distribution Width 15.4 % (11.5-14.5) Platelet Count 158 x10^3/uL (140-400) Neutrophils (%) (Auto) 77 % (31-73) Lymphocytes (%) (Auto) 10 % (24-48) Monocytes (%) (Auto) 11 % (0-9) Eosinophils (%) (Auto) 1 % (0-3) Basophils (%) (Auto) 1 % (0-3) Neutrophils # (Auto) 6.2 x10^3uL (1.8-7.7) Lymphocytes # (Auto) 0.8 x10^3/uL (1.0-4.8) Monocytes # (Auto) 0.9 x10^3/uL (0.0-1.1) Eosinophils # (Auto) 0.1 x10^3/uL (0.0-0.7) Basophils # (Auto) 0.1 x10^3/uL (0.0-0.2) Sodium Level 148 mmol/L (136-145) Potassium Level 3.3 mmol/L (3.5-5.1) Chloride Level 113 mmol/L (98-107) Carbon Dioxide Level 28 mmol/L (21-32) Anion Gap 7 (6-14) Blood Urea Nitrogen 22 mg/dL (8-26) Creatinine 1.2 mg/dL (0.7-1.3) Estimated GFR (Cockcroft-Gault) 62.4 Glucose Level 101 mg/dL (70-99) Calcium Level 8.3 mg/dL (8.5-10.1) Magnesium Level 2.1 mg/dL (1.8-2.4) Triglycerides Level 126 mg/dL (0-150) Cholesterol Level 167 mg/dL (0-200) LDL Cholesterol, Calculated 114 mg/dL (0-100) VLDL Cholesterol, Calculated 25 mg/dL (0-40) Non-HDL Cholesterol Calculated 139 mg/dL (0-129) HDL Cholesterol 28 mg/dL (40-60) Cholesterol/HDL Ratio 6.0 O2 Saturation 97 % (92-99) Arterial Blood pH 7.39 (7.35-7.45) Arterial Blood pCO2 at Patient Temp 41 mmHg (35-46) Arterial Blood pO2 at Patient Temp 97 mmHg (75-108) Arterial Blood HCO3 24 mmol/L (21-28) Arterial Blood Base Excess -1 mmol/L (-3-3) FiO2 40 Urine Collection Type U cath Urine Color Yellow Urine Clarity Clear Urine pH 5.5 Urine Specific [place] >=1.030 Urine Protein 100 mg/dL (NEG-TRACE) Urine Glucose (UA) Negative mg/dL (NEG) Urine Ketones (Stick) Negative mg/dL (NEG) Urine Blood Negative (NEG) Urine Nitrite Negative (NEG) Urine Bilirubin Small (NEG) Urine Urobilinogen Dipstick 0.2 mg/dL (0.2 mg/dL) Urine Leukocyte Esterase Negative (NEG) Urine RBC Occ /HPF (0-2) Urine WBC 5-10 /HPF (0-4) Urine Bacteria Moderate /HPF (0-FEW) Test 10/14/16 10:10 10/15/16 04:55 O2 Saturation 98 % (92-99) Arterial Blood pH 7.42 (7.35-7.45) Arterial Blood pCO2 at Patient Temp 38 mmHg (35-46) Arterial Blood pO2 at Patient Temp 101 mmHg (75-108) Arterial Blood HCO3 24 mmol/L (21-28) Arterial Blood Base Excess 0 mmol/L (-3-3) FiO2 40 Sodium Level 143 mmol/L (136-145) Potassium Level 3.1 mmol/L (3.5-5.1) Chloride Level 106 mmol/L (98-107) Carbon Dioxide Level 25 mmol/L (21-32) Anion Gap 12 (6-14) Blood Urea Nitrogen 15 mg/dL (8-26) Creatinine 0.9 mg/dL (0.7-1.3) Estimated GFR (Cockcroft-Gault) 87.0 Glucose Level 118 mg/dL (70-99) Calcium Level 8.4 mg/dL (8.5-10.1) Magnesium Level 1.9 mg/dL (1.8-2.4) Laboratory Tests Test 10/15/16 04:55 Sodium Level 143 mmol/L (136-145) Potassium Level 3.1 mmol/L (3.5-5.1) Chloride Level 106 mmol/L (98-107) Carbon Dioxide Level 25 mmol/L (21-32) Anion Gap 12 (6-14) Blood Urea Nitrogen 15 mg/dL (8-26) Creatinine 0.9 mg/dL (0.7-1.3) Estimated GFR (Cockcroft-Gault) 87.0 Glucose Level 118 mg/dL (70-99) Calcium Level 8.4 mg/dL (8.5-10.1) Magnesium Level 1.9 mg/dL (1.8-2.4) Medications Active Scripts Medications Dose Route/Sig Max Daily Dose Days Date Category Hydrocodone-Apap 5-325 (Hydrocodone Bit/Acetaminophen) 1 Each Tablet 1-2 Tab PO PRN Q6HRS PRN 08/04/16 Rx Lisinopril 10 Mg Tablet 1 Tab PO DAILY 08/04/16 Rx Impression . 1. Acute respiratory failure, multifactorial secondary to acute pulmonary edema and pneumonia. 2. Pneumonia. 3. Acute systolic heart failure. The patient had echocardiogram revealing an ejection fraction of 25%. 4. Metabolic acidosis related to increased work of breathing. 5. Tobacco dependence. 6. Hypertension. 7. Hepatitis. Plan . did well on trial and extubated resp status is compensated home when ok with card 1. Workup per Cardiology, may need ischemic workup, in future 2. Diurese. 3. Control blood pressure. 4. Continue Levaquin. 5. Monitor chest x-ray, 6. The patient instructed on the importance of discontinuing tobacco use. JOVANNA MAYER MD October 15, 2016 10:27
--- NOTE | 2016-10-15 10:32 | PDOC ---
PROGRESS NOTES Subjective Subjective Dyspnea improving, denied any chest pain Objective Objective Vital Signs Date Time Temp Pulse Resp B/P (MAP) Pulse Ox O2 Delivery O2 Flow Rate FiO2 10/15/16 08:51 81 173/102 10/15/16 08:00 Room Air 3.0 10/15/16 07:00 98.6 20 96 98.6 Intake and Output 10/15/16 07:00 Intake Total 500 ml Output Total 4314 ml Balance -3814 ml Intake Oral 500 ml Output Urine Total 4314 ml # Voids 1 Physical Exam Abdomen: Soft Heart: Regular rate, Normal S1, Normal S2 Extremities: No cyanosis, No edema, Normal pulses General: Alert HEENT: Atraumatic Lungs: Other (bilateral basal crepitations) Neck: Supple Skin: No rashes, No breakdown, No significant lesion Assessment Assessment 1. Acute systolic heart failure Improving with diuresis, I/O negative > 3L/24 hrs Echo shows depressed LV function with an EF of 25-30% etiology of cardiomyopathy unknown; plan for cardiac catheterization once active issues resolve, possibly early next week. Continue Lasix, ASA, BB, and statin 2. Malignant hypertension Blood pressure still elevated non-compliance with aniHTN therapy; has not taken in a couple of year. Increase lisinopril for better blood pressure control 3. Acute respiratory failure multifactorial given PNA and acute systolic HF extubated 10/14 per pulm 4. Pneumonia IV antibiotics per IM 5. Lactic acidosis 6. Hyperglycemia ?stress induced 7. substance use UDS + marijuana 8. Hypokalemia replaced 9. Tobaccoism cessation discussed and encouraged. Plan Plan of Care Problems Medical Problems: (1) Acute congestive heart failure Status: Acute (2) Acute respiratory failure Status: Acute (3) Metabolic acidosis Status: Acute (4) Respiratory acidosis Status: Acute Comment Review of Relevant I have reviewed the following items reese (where applicable) has been applied. Labs Laboratory Tests Test 10/15/16 04:55 Sodium Level 143 mmol/L (136-145) Potassium Level 3.1 mmol/L (3.5-5.1) Chloride Level 106 mmol/L (98-107) Carbon Dioxide Level 25 mmol/L (21-32) Anion Gap 12 (6-14) Blood Urea Nitrogen 15 mg/dL (8-26) Creatinine 0.9 mg/dL (0.7-1.3) Estimated GFR (Cockcroft-Gault) 87.0 Glucose Level 118 mg/dL (70-99) Calcium Level 8.4 mg/dL (8.5-10.1) Magnesium Level 1.9 mg/dL (1.8-2.4) Microbiology 10/13/16 Blood Culture - Preliminary, Resulted NO GROWTH AFTER 2 DAYS Medications Current Medications Aspirin (Ecotrin) 81 mg [id number] PO Last administered on 10/15/16 08:52; Start 10/14/16 at 12:45 Atorvastatin Calcium (Lipitor) 40 mg QHS PO Last administered on 10/14/16 20: 05; Start 10/14/16 at 21:00 Lisinopril (Prinivil) 10 mg DAILY PO Last administered on 10/14/16 13:43; Start 10/14/16 at 12:45 Metoprolol Succinate (Toprol Xl) 25 mg DAILY PO Last administered on 10/14/16 13:45; Start 10/14/16 at 12:45 Potassium Chloride (Klor-Con) 20 meq [id number] PO Last administered on 08:49; Start 10/15/16 at 08:00 Potassium Chloride (Klor-Con) 40 meq 1X ONCE PO Last administered on 13:44; Start 10/14/16 at 13:00; Stop 10/14/16 at 13:01; Status DC Potassium Chloride (Klor-Con) 40 meq 1X ONCE PO Last administered on 08:50; Start 10/15/16 at 08:15; Stop 10/15/16 at 08:16; Status DC Vitals/I & O Vital Sign - Last 24 Hours 10/14/16 10/14/16 10/14/16 10/14/16 10:50 10:50 11:13 12:11 Pulse 86 85 Resp 25 24 B/P (MAP) 160/102 (121) 159/99 (119) Pulse Ox 94 96 97 O2 Delivery Nasal Cannula Nasal Cannula Ventilator Ventilator O2 Flow Rate 3.0 3.0 10/14/16 10/14/16 10/14/16 10/14/16 12:11 13:20 13:43 13:45 Pulse 84 86 86 Resp 22 B/P (MAP) 155/88 (110) 171/101 171/101 Pulse Ox 98 O2 Delivery Mechanical Ventilator Ventilator O2 Flow Rate 3.0 10/14/16 10/14/16 10/14/16 10/14/16 14:18 15:11 19:22 20:00 Temp 98.2 98.2 Pulse 86 85 88 Resp 20 31 18 B/P (MAP) 166/101 (122) 151/95 (113) 168/105 (126) Pulse Ox 95 96 99 O2 Delivery Ventilator Ventilator Room Air Room Air 10/14/16 10/14/16 10/15/16 10/15/16 21:12 23:08 03:17 07:00 Temp 98.7 98.9 98.6 98.7 98.9 98.6 Pulse 88 90 87 81 Resp 18 18 20 B/P (MAP) 168/105 164/101 (122) 145/102 (116) 173/102 (125) Pulse Ox 97 94 96 O2 Delivery Room Air Room Air Room Air 10/15/16 10/15/16 10/15/16 10/15/16 08:00 08:47 08:47 08:51 Pulse 81 81 81 B/P (MAP) 173/102 173/102 173/102 O2 Delivery Room Air O2 Flow Rate 3.0 Intake and Output 10/14/16 10/14/16 10/15/16 15:00 23:00 07:00 Intake Total 500 ml Output Total 3394 ml 220 ml 700 ml Balance -3394 ml -220 ml -200 ml NYA ZHANG MD October 15, 2016 10:32
[2016-10-15 11:00] VITALS: BP 145/103
[2016-10-15] MEDS ORDERED: ALBUTEROL SULFATE 2.5 MG/3 ML NEBU. NEB PRN (12:00)
[2016-10-15] MEDS ORDERED: amLODIPine BESYLATE 5 MG TABLET PO SCH (13:00)
[2016-10-15] MEDS ORDERED: ONDANSETRON PF 4 MG/2 ML VIAL. IV PRN (13:45)
[2016-10-15] MEDS ORDERED: hydrALAZINE 20 MG/ML VIAL. IVP PRN (13:45)
[2016-10-15] MEDS ORDERED: ACETAMINOPHEN 325 MG TABLET. PO PRN (13:45)
[2016-10-15] MEDS ORDERED: DOCUSATE SODIUM 100 MG CAPSULE. PO PRN (13:45)
--- NOTE | 2016-10-15 13:49 | PDOC ---
PROGRESS NOTES Chief Complaint Chief Complaint ACUTE hypoxic resp failure with CHF acute systolic CHF with EF 25% HTN urgency h/o Hep C Noncompliance tobaccoism hypokalemia possible COPD with possible CAP PLAN: FU WITH card, pulm still on levaquin, add mucinex on lasix 40mg iv daily metoprolol, lisinopril, increased dose by card for HTN in and out strict weight daily may need cath for possible coronary dz, had chest pain 1 month ago replete K albuterol prn dvt ppx History of Present Illness History of Present Illness orthopnea mild cough high BP low K Vitals Vitals Vital Signs Date Time Temp Pulse Resp B/P (MAP) Pulse Ox O2 Delivery O2 Flow Rate FiO2 10/15/16 11:00 98.5 78 20 145/103 (117) 98 Room Air 98.5 10/15/16 08:00 3.0 Physical Exam General: Alert Heart: Regular rate, Normal S1, Normal S2 Lungs: Crackles (bl basilar mild carckles) Abdomen: Soft Extremities: No cyanosis, Normal pulses, Other (bl feet 1+ edema) Skin: No rashes, No breakdown, No significant lesion Labs LABS Laboratory Tests Test 10/15/16 04:55 Sodium Level 143 mmol/L (136-145) Potassium Level 3.1 mmol/L (3.5-5.1) Chloride Level 106 mmol/L (98-107) Carbon Dioxide Level 25 mmol/L (21-32) Anion Gap 12 (6-14) Blood Urea Nitrogen 15 mg/dL (8-26) Creatinine 0.9 mg/dL (0.7-1.3) Estimated GFR (Cockcroft-Gault) 87.0 Glucose Level 118 mg/dL (70-99) Calcium Level 8.4 mg/dL (8.5-10.1) Magnesium Level 1.9 mg/dL (1.8-2.4) Review of Systems Review of Systems no fever, chills, chest pain Assessment and Plan Assessmemt and Plan Problems Medical Problems: (1) Acute congestive heart failure Status: Acute (2) Acute respiratory failure Status: Acute (3) Metabolic acidosis Status: Acute (4) Respiratory acidosis Status: Acute Problems: Comment Review of Relevant I have reviewed the following items reese (where applicable) has been applied. Labs Laboratory Tests Test 10/14/16 05:00 10/14/16 08:00 10/14/16 08:30 10/14/16 10:10 White Blood Count 8.0 x10^3/uL (4.0-11.0) Red Blood Count 4.73 x10^6/uL (4.30-5.70) Hemoglobin 13.0 g/dL (13.0-17.5) Hematocrit 39.8 % (39.0-53.0) Mean Corpuscular Volume 84 fL (79-100) Mean Corpuscular Hemoglobin 27 pg (25-35) Mean Corpuscular Hemoglobin Concent 33 g/dL (31-37) Red Cell Distribution Width 15.4 % (11.5-14.5) Platelet Count 158 x10^3/uL (140-400) Neutrophils (%) (Auto) 77 % (31-73) Lymphocytes (%) (Auto) 10 % (24-48) Monocytes (%) (Auto) 11 % (0-9) Eosinophils (%) (Auto) 1 % (0-3) Basophils (%) (Auto) 1 % (0-3) Neutrophils # (Auto) 6.2 x10^3uL (1.8-7.7) Lymphocytes # (Auto) 0.8 x10^3/uL (1.0-4.8) Monocytes # (Auto) 0.9 x10^3/uL (0.0-1.1) Eosinophils # (Auto) 0.1 x10^3/uL (0.0-0.7) Basophils # (Auto) 0.1 x10^3/uL (0.0-0.2) Sodium Level 148 mmol/L (136-145) Potassium Level 3.3 mmol/L (3.5-5.1) Chloride Level 113 mmol/L (98-107) Carbon Dioxide Level 28 mmol/L (21-32) Anion Gap 7 (6-14) Blood Urea Nitrogen 22 mg/dL (8-26) Creatinine 1.2 mg/dL (0.7-1.3) Estimated GFR (Cockcroft-Gault) 62.4 Glucose Level 101 mg/dL (70-99) Calcium Level 8.3 mg/dL (8.5-10.1) Magnesium Level 2.1 mg/dL (1.8-2.4) Triglycerides Level 126 mg/dL (0-150) Cholesterol Level 167 mg/dL (0-200) LDL Cholesterol, Calculated 114 mg/dL (0-100) VLDL Cholesterol, Calculated 25 mg/dL (0-40) Non-HDL Cholesterol Calculated 139 mg/dL (0-129) HDL Cholesterol 28 mg/dL (40-60) Cholesterol/HDL Ratio 6.0 O2 Saturation 97 % (92-99) 98 % (92-99) Arterial Blood pH 7.39 (7.35-7.45) 7.42 (7.35-7.45) Arterial Blood pCO2 at Patient Temp 41 mmHg (35-46) 38 mmHg (35-46) Arterial Blood pO2 at Patient Temp 97 mmHg (75-108) 101 mmHg (75-108) Arterial Blood HCO3 24 mmol/L (21-28) 24 mmol/L (21-28) Arterial Blood Base Excess -1 mmol/L (-3-3) 0 mmol/L (-3-3) FiO2 40 40 Urine Collection Type U cath Urine Color Yellow Urine Clarity Clear Urine pH 5.5 Urine Specific [place] >=1.030 Urine Protein 100 mg/dL (NEG-TRACE) Urine Glucose (UA) Negative mg/dL (NEG) Urine Ketones (Stick) Negative mg/dL (NEG) Urine Blood Negative (NEG) Urine Nitrite Negative (NEG) Urine Bilirubin Small (NEG) Urine Urobilinogen Dipstick 0.2 mg/dL (0.2 mg/dL) Urine Leukocyte Esterase Negative (NEG) Urine RBC Occ /HPF (0-2) Urine WBC 5-10 /HPF (0-4) Urine Bacteria Moderate /HPF (0-FEW) Test 10/15/16 04:55 Sodium Level 143 mmol/L (136-145) Potassium Level 3.1 mmol/L (3.5-5.1) Chloride Level 106 mmol/L (98-107) Carbon Dioxide Level 25 mmol/L (21-32) Anion Gap 12 (6-14) Blood Urea Nitrogen 15 mg/dL (8-26) Creatinine 0.9 mg/dL (0.7-1.3) Estimated GFR (Cockcroft-Gault) 87.0 Glucose Level 118 mg/dL (70-99) Calcium Level 8.4 mg/dL (8.5-10.1) Magnesium Level 1.9 mg/dL (1.8-2.4) Laboratory Tests Test 10/15/16 04:55 Sodium Level 143 mmol/L (136-145) Potassium Level 3.1 mmol/L (3.5-5.1) Chloride Level 106 mmol/L (98-107) Carbon Dioxide Level 25 mmol/L (21-32) Anion Gap 12 (6-14) Blood Urea Nitrogen 15 mg/dL (8-26) Creatinine 0.9 mg/dL (0.7-1.3) Estimated GFR (Cockcroft-Gault) 87.0 Glucose Level 118 mg/dL (70-99) Calcium Level 8.4 mg/dL (8.5-10.1) Magnesium Level 1.9 mg/dL (1.8-2.4) Microbiology 10/13/16 Blood Culture - Preliminary, Resulted NO GROWTH AFTER 2 DAYS Medications Current Medications Propofol 50 ml @ As Directed STK-MED ONCE IV ; Start 10/12/16 at 23:15; Stop at 23:16; Status DC Sodium Chloride 1,000 ml @ 1,000 mls/hr Q1H IV Last administered on 10/12/16 23:15; Start 10/12/16 at 23:45; Stop 10/13/16 at 00:44; Status DC Nitroglycerin/ Dextrose 250 ml @ 0 mls/hr CONT PRN IV SEE I/O RECORD Last administered on 10/12/16 23:56; Start 10/12/16 at 23:30; Stop 10/13/16 at 11:14 ; Status DC Propofol 100 ml @ 0 mls/hr CONT PRN IV SEE I/O RECORD Last administered on 10/14 03:28; Start 10/12/16 at 23:45; Stop 10/14/16 at 18:02; Status DC Propofol 50 ml @ 0 mls/hr 1X ONCE IV Last administered on 10/12/16 23:18; Start 10/12/16 at 23:45; Stop 10/12/16 at 23:46; Status DC Furosemide (Lasix) 80 mg 1X ONCE IVP Last administered on 10/12/16 22:48; Start 10/12/16 at 23:45; Stop 10/12/16 at 23:46; Status DC Rocuronium [place] (Zemuron) 50 mg 1X ONCE IV Last administered on 10/13/16 00:15; Start 10/13/16 at 00:15; Stop 10/13/16 at 00:16; Status DC Etomidate (Amidate) 20 mg 1X ONCE IV Last administered on 10/12/16 23:10; Start 10/13/16 at 00:30; Stop 10/13/16 at 00:31; Status DC Iohexol (Omnipaque 300 Mg/ml) 60 ml 1X ONCE IV Last administered on 10/13/16 01:03; Start 10/13/16 at 01:00; Stop 10/13/16 at 01:01; Status DC Info (Do NOT chart on this entry -- for MONITORING) 1 each PRN DAILY PRN MC SEE COMMENTS; Start 10/13/16 at 00:30; Stop 10/15/16 at 00:29; Status DC Ondansetron HCl (Zofran) 4 mg PRN Q8HRS PRN IV NAUSEA/VOMITING; Start 10/13/16 at 01:15; Stop 10/14/16 at 01:14; Status DC Sodium Chloride 1,000 ml @ 125 mls/hr Q8H IV Last administered on 10/13/16 17 :43; Start 10/13/16 at 01:09; Stop 10/14/16 at 01:08; Status DC Acetaminophen (Tylenol) 650 mg PRN Q4HRS PRN PO FEVER; Start 10/13/16 at 01:15 ; Stop 10/14/16 at 01:14; Status DC Levofloxacin/ Dextrose (Levaquin Per Pharmacy) 1 each PRN DAILY PRN MC SEE COMMENTS; Start 10/13/16 at 01:45 Levofloxacin/ Dextrose 100 ml @ 100 mls/hr 1X ONCE IV Last administered on 02:29; Start 10/13/16 at 02:00; Stop 10/13/16 at 02:59; Status DC Rocuronium [place] (Zemuron) 50 mg 1X ONCE IV Last administered on 10/12/16 23:10; Start 10/13/16 at 02:15; Stop 10/13/16 at 02:26; Status DC Levofloxacin/ Dextrose 100 ml @ 100 mls/hr Q24H IV Last administered on 22:45; Start 10/13/16 at 23:00 Sodium Chloride 500 ml @ 500 mls/hr 1X ONCE IV Last administered on 01:13; Start 10/13/16 at 03:30; Stop 10/13/16 at 04:29; Status DC Furosemide (Lasix) 40 mg DAILY IVP Last administered on 10/15/16 08:52; Start 10/13/16 at 11:15 Metoprolol Tartrate (Lopressor) 5 mg PRN Q6HRS PRN IVP systolic >150 Last administered on 10/14/16 09:50; Start 10/14/16 at 09:45 Hydralazine HCl (Apresoline) 10 mg PRN Q4HRS PRN IVP systolic >160 Last administered on 10/15/16 08:51; Start 10/14/16 at 09:45 Atorvastatin Calcium (Lipitor) 40 mg QHS PO Last administered on 10/14/16 20: 05; Start 10/14/16 at 21:00 Lisinopril (Prinivil) 10 mg DAILY PO Last administered on 10/14/16 13:43; Start 10/14/16 at 12:45; Stop 10/15/16 at 10:33; Status DC Aspirin (Ecotrin) 81 mg [id number] PO Last administered on 10/15/16 08:52; Start 10/14/16 at 12:45 Metoprolol Succinate (Toprol Xl) 25 mg DAILY PO Last administered on 10/14/16 13:45; Start 10/14/16 at 12:45 Potassium Chloride (Klor-Con) 40 meq 1X ONCE PO Last administered on 13:44; Start 10/14/16 at 13:00; Stop 10/14/16 at 13:01; Status DC Potassium Chloride (Klor-Con) 20 meq DAILYWBKFT PO Last administered on 08:49; Start 10/15/16 at 08:00 Potassium Chloride (Klor-Con) 40 meq 1X ONCE PO Last administered on 08:50; Start 10/15/16 at 08:15; Stop 10/15/16 at 08:16; Status DC Lisinopril (Prinivil) 40 mg DAILY PO ; Start 5/28/17 at 09:00 Amlodipine Besylate (Norvasc) 5 mg DAILY PO ; Start 10/15/16 at 13:00 Albuterol Sulfate (Ventolin Neb Soln) 2.5 mg PRN Q6HRS PRN NEB SHORTNESS OF BREATH; Start 10/15/16 at 12:00 Active Scripts Active Hydrocodone-Apap 5-325 (Hydrocodone Bit/Acetaminophen) 1 Each Tablet 1-2 Tab PO PRN Q6HRS PRN Lisinopril 10 Mg Tablet 1 Tab PO DAILY Vitals/I & O Vital Sign - Last 24 Hours 10/14/16 10/14/16 10/14/16 10/14/16 14:18 15:11 19:22 20:00 Temp 98.2 98.2 Pulse 86 85 88 Resp 20 31 18 B/P (MAP) 166/101 (122) 151/95 (113) 168/105 (126) Pulse Ox 95 96 99 O2 Delivery Ventilator Ventilator Room Air Room Air 10/14/16 10/14/16 10/15/16 10/15/16 21:12 23:08 03:17 07:00 Temp 98.7 98.9 98.6 98.7 98.9 98.6 Pulse 88 90 87 81 Resp 18 18 20 B/P (MAP) 168/105 164/101 (122) 145/102 (116) 173/102 (125) Pulse Ox 97 94 96 O2 Delivery Room Air Room Air Room Air 10/15/16 10/15/16 10/15/16 10/15/16 08:00 08:47 08:47 08:51 Pulse 81 81 81 B/P (MAP) 173/102 173/102 173/102 O2 Delivery Room Air O2 Flow Rate 3.0 10/15/16 11:00 Temp 98.5 98.5 Pulse 78 Resp 20 B/P (MAP) 145/103 (117) Pulse Ox 98 O2 Delivery Room Air Intake and Output 10/14/16 10/14/16 10/15/16 15:00 23:00 07:00 Intake Total 500 ml Output Total 3394 ml 220 ml 700 ml Balance -3394 ml -220 ml -200 ml LUPE GUZMAN MD October 15, 2016 13:49
[2016-10-15] MEDS: ENOXAPARIN 40 MG/0.4 ML SYRINGE. SQ SCH (14:16)
[2016-10-15 15:00] VITALS: BP 144/88
[2016-10-15] MEDS: ATORVASTATIN CALCIUM 40 MG TABLET. PO SCH (19:58)
[2016-10-15 20:01] VITALS: BP 147/100
[2016-10-15 23:34] VITALS: BP 171/113
[2016-10-15] MEDS: METOPROLOL TARTRATE 5 MG/5 ML VIAL. IVP PRN (23:39)
[2016-10-16 07:00] VITALS: BP 157/108
--- NOTE | 2016-10-16 07:40 | RAD ---
EXAM: Chest, single view. HISTORY: Edema. COMPARISON: 10/15/2016. FINDINGS: A frontal view of the chest is obtained. There has been minimal interval increase in left lower lobe interstitial opacity. There is no consolidation, effusion or pneumothorax. The heart is normal in size. IMPRESSION: Minimal interval increase in left lower lobe interstitial opacity. This may be due to atelectasis or interstitial infiltrate.
[2016-10-16] MEDS: LISINOPRIL 10 MG TABLET PO SCH (08:37)
[2016-10-16] MEDS: ASPIRIN ENTERIC COATED 81 MG TABLET.DR. PO SCH (08:38)
[2016-10-16] MEDS: FUROSEMIDE 40 MG/4 ML VIAL. IVP SCH (08:38)
[2016-10-16] MEDS: METOPROLOL SUCC 24HR ER 25 MG TAB.ER.24H. PO SCH (08:39)
[2016-10-16] MEDS: POTASSIUM CHLORIDE 20 MEQ TABLET.ER. PO SCH (08:39)
[2016-10-16 09:55] LABS: BASO % 0 % (0-3); EOS % 1 % (0-3); HEMATOCRIT 45.1 % (39.0-53.0); HEMOGLOBIN 15.5 g/dL (13.0-17.5); LYMPH # 0.6 x10^3/uL (1.0-4.8); LYMPH % 6 % (24-48); MEAN CORPUSCULAR HEMOGLOBIN 28 pg (25-35); MEAN CORPUSCULAR HGB CONC 34 g/dL (31-37); MEAN CORPUSCULAR VOLUME 82 fL (79-100); MONO % 7 % (0-9); NEUT % 85 % (31-73); PLATELET COUNT 200 x10^3/uL (140-400); RED BLOOD COUNT 5.53 x10^6/uL (4.30-5.70)
[2016-10-16 10:13] LABS: CREATININE 1.2 mg/dL (0.7-1.3); GFR 62.4; POTASSIUM 3.5 mmol/L (3.5-5.1)
[2016-10-16 10:59] VITALS: BP 126/93
--- NOTE | 2016-10-16 11:04 | PDOC ---
PROGRESS NOTES Subjective Subjective Dyspnea improved. Denied any chest pain. Objective Objective Vital Signs Date Time Temp Pulse Resp B/P (MAP) Pulse Ox O2 Delivery O2 Flow Rate FiO2 10/16/16 08:39 68 157/108 10/16/16 08:00 Room Air 10/16/16 07:00 98.0 18 96 98.0 10/15/16 08:00 3.0 Intake and Output 10/16/16 07:00 Intake Total 1560 ml Balance 1560 ml Intake Oral 1560 ml # Voids 5 # Bowel Movements 1 Physical Exam Abdomen: Soft Heart: Regular rate, Normal S1, Normal S2 Extremities: No cyanosis, Normal pulses, Other (bl feet 1+ edema) General: Alert HEENT: Atraumatic Lungs: Other (bilateral basal crepitations) Neck: Supple Skin: No rashes, No breakdown, No significant lesion Assessment Assessment 1. Acute systolic heart failure Improving with diuresis, Echo shows depressed LV function with an EF of 25-30% etiology of cardiomyopathy unknown; plan for cardiac catheterization once active issues resolve, possibly early next week. Continue Lasix, ASA, BB, and statin 2. Malignant hypertension Blood pressure better controlled with increased dose of lisinopril non-compliance with aniHTN therapy; has not taken in a couple of year. 3. Acute respiratory failure multifactorial given PNA and acute systolic HF extubated 10/14 per pulm 4. Pneumonia IV antibiotics per IM 5. substance use UDS + marijuana 6. Hypokalemia replaced 7. Tobaccoism cessation discussed and encouraged Plan Plan of Care Problems Medical Problems: (1) Acute congestive heart failure Status: Acute (2) Acute respiratory failure Status: Acute (3) Metabolic acidosis Status: Acute (4) Respiratory acidosis Status: Acute Comment Review of Relevant I have reviewed the following items reese (where applicable) has been applied. Labs Laboratory Tests Test 10/16/16 09:45 White Blood Count 9.0 x10^3/uL (4.0-11.0) Red Blood Count 5.53 x10^6/uL (4.30-5.70) Hemoglobin 15.5 g/dL (13.0-17.5) Hematocrit 45.1 % (39.0-53.0) Mean Corpuscular Volume 82 fL (79-100) Mean Corpuscular Hemoglobin 28 pg (25-35) Mean Corpuscular Hemoglobin Concent 34 g/dL (31-37) Red Cell Distribution Width 15.0 % (11.5-14.5) Platelet Count 200 x10^3/uL (140-400) Neutrophils (%) (Auto) 85 % (31-73) Lymphocytes (%) (Auto) 6 % (24-48) Monocytes (%) (Auto) 7 % (0-9) Eosinophils (%) (Auto) 1 % (0-3) Basophils (%) (Auto) 0 % (0-3) Neutrophils # (Auto) 7.7 x10^3uL (1.8-7.7) Lymphocytes # (Auto) 0.6 x10^3/uL (1.0-4.8) Monocytes # (Auto) 0.6 x10^3/uL (0.0-1.1) Eosinophils # (Auto) 0.1 x10^3/uL (0.0-0.7) Basophils # (Auto) 0.0 x10^3/uL (0.0-0.2) Sodium Level 142 mmol/L (136-145) Potassium Level 3.5 mmol/L (3.5-5.1) Chloride Level 103 mmol/L (98-107) Carbon Dioxide Level 29 mmol/L (21-32) Anion Gap 10 (6-14) Blood Urea Nitrogen 20 mg/dL (8-26) Creatinine 1.2 mg/dL (0.7-1.3) Estimated GFR (Cockcroft-Gault) 62.4 Glucose Level 220 mg/dL (70-99) Calcium Level 9.0 mg/dL (8.5-10.1) Microbiology 10/13/16 Blood Culture - Preliminary, Resulted NO GROWTH AFTER 3 DAYS 10/14/16 Urine Culture - Preliminary, Resulted 10/14/16 Urine Culture Result 1 (MATTHEW) - Preliminary, Resulted Medications Current Medications Acetaminophen (Tylenol) 650 mg PRN Q6HRS PRN PO FEVER; Start 10/15/16 at 13:45 Albuterol Sulfate (Ventolin Neb Soln) 2.5 mg PRN Q6HRS PRN NEB SHORTNESS OF BREATH; Start 10/15/16 at 12:00 Amlodipine Besylate (Norvasc) 5 mg DAILY PO ; Start 10/15/16 at 13:00; Stop at 13:46; Status DC Docusate Sodium (Colace) 100 mg PRN DAILY PRN PO CONSTIPATION; Start 10/15/16 at 13:45 Enoxaparin Sodium (Lovenox 40mg Syringe) 40 mg Q24H SQ Last administered on 14:16; Start 10/15/16 at 14:00 Guaifenesin (Mucinex) 600 mg BID PO Last administered on 10/16/16 08:38; Start 10/15/16 at 14:00 Hydralazine HCl (Apresoline) 10 mg PRN Q4HRS PRN IVP ELEVATED BP, SEE COMMENTS ; Start 10/15/16 at 13:45; Stop 10/15/16 at 15:35; Status DC Levofloxacin (Levaquin) 500 mg QHS PO Last administered on 10/15/16 19:58; Start 10/15/16 at 21:00 Lisinopril (Prinivil) 40 mg DAILY PO Last administered on 10/16/16 08:37; Start 10/16/16 at 09:00 Morphine Sulfate 2 mg PRN Q2HR PRN IV PAIN; Start 10/15/16 at 13:45 Ondansetron HCl (Zofran) 4 mg PRN Q6HRS PRN IV NAUSEA/VOMITING; Start 10/15/16 at 13:45 Tramadol HCl (Ultram) 50 mg PRN Q6HRS PRN PO PAIN; Start 10/15/16 at 13:45 Vitals/I & O Vital Sign - Last 24 Hours 10/15/16 10/15/16 10/15/16 10/15/16 15:00 19:38 20:00 20:01 Temp 98.2 97.7 98.2 97.7 Pulse 74 77 Resp 16 20 B/P (MAP) 144/88 (106) 147/100 (116) Pulse Ox 98 98 97 O2 Delivery Room Air Room Air Room Air Room Air 10/15/16 10/15/16 10/16/16 10/16/16 23:34 23:39 03:29 07:00 Temp 98.8 98.0 98.8 98.0 Pulse 86 86 82 68 Resp 18 18 B/P (MAP) 171/113 (132) 171/113 157/108 (124) Pulse Ox 96 96 O2 Delivery Room Air Room Air 10/16/16 10/16/16 10/16/16 08:00 08:37 08:39 Pulse 68 68 B/P (MAP) 157/108 157/108 O2 Delivery Room Air Intake and Output 10/15/16 10/15/16 10/16/16 15:00 23:00 07:00 Intake Total 1560 ml Balance 1560 ml NYA ZHANG MD October 16, 2016 11:04
[2016-10-16] MEDS: amLODIPine BESYLATE 10 MG TABLET PO SCH (12:26)
[2016-10-16] MEDS: ENOXAPARIN 40 MG/0.4 ML SYRINGE. SQ SCH (12:27)
--- NOTE | 2016-10-16 13:28 | PDOC ---
PROGRESS NOTES Chief Complaint Chief Complaint ACUTE hypoxic resp failure with CHF acute systolic CHF with EF 25% HTN urgency h/o Hep C Noncompliance tobaccoism hypokalemia possible COPD with possible CAP PLAN: FU WITH card, pulm still on levaquin, add mucinex on lasix 40mg iv daily lisinopril, increased dose by card for HTN, dc metoprolol, change to coreg, add amlodipine in and out strict weight daily may need cath for possible coronary dz, had chest pain 1 month ago replete K albuterol prn dvt ppx History of Present Illness History of Present Illness orthopnea better mild cough still high BP, not controlled low K Vitals Vitals Vital Signs Date Time Temp Pulse Resp B/P (MAP) Pulse Ox O2 Delivery O2 Flow Rate FiO2 10/16/16 12:26 55 126/93 10/16/16 10:59 97.7 16 95 Room Air 97.7 10/15/16 08:00 3.0 Physical Exam General: Alert Heart: Regular rate, Normal S1, Normal S2 Lungs: Crackles (bl basilar mild carckles) Abdomen: Soft Extremities: No cyanosis, Normal pulses, Other (bl feet 1+ edema) Skin: No rashes, No breakdown, No significant lesion Labs LABS Laboratory Tests Test 10/16/16 09:45 White Blood Count 9.0 x10^3/uL (4.0-11.0) Red Blood Count 5.53 x10^6/uL (4.30-5.70) Hemoglobin 15.5 g/dL (13.0-17.5) Hematocrit 45.1 % (39.0-53.0) Mean Corpuscular Volume 82 fL (79-100) Mean Corpuscular Hemoglobin 28 pg (25-35) Mean Corpuscular Hemoglobin Concent 34 g/dL (31-37) Red Cell Distribution Width 15.0 % (11.5-14.5) Platelet Count 200 x10^3/uL (140-400) Neutrophils (%) (Auto) 85 % (31-73) Lymphocytes (%) (Auto) 6 % (24-48) Monocytes (%) (Auto) 7 % (0-9) Eosinophils (%) (Auto) 1 % (0-3) Basophils (%) (Auto) 0 % (0-3) Neutrophils # (Auto) 7.7 x10^3uL (1.8-7.7) Lymphocytes # (Auto) 0.6 x10^3/uL (1.0-4.8) Monocytes # (Auto) 0.6 x10^3/uL (0.0-1.1) Eosinophils # (Auto) 0.1 x10^3/uL (0.0-0.7) Basophils # (Auto) 0.0 x10^3/uL (0.0-0.2) Sodium Level 142 mmol/L (136-145) Potassium Level 3.5 mmol/L (3.5-5.1) Chloride Level 103 mmol/L (98-107) Carbon Dioxide Level 29 mmol/L (21-32) Anion Gap 10 (6-14) Blood Urea Nitrogen 20 mg/dL (8-26) Creatinine 1.2 mg/dL (0.7-1.3) Estimated GFR (Cockcroft-Gault) 62.4 Glucose Level 220 mg/dL (70-99) Calcium Level 9.0 mg/dL (8.5-10.1) Review of Systems Review of Systems no fever, chills, chest pain Assessment and Plan Assessmemt and Plan Problems Medical Problems: (1) Acute congestive heart failure Status: Acute (2) Acute respiratory failure Status: Acute (3) Metabolic acidosis Status: Acute (4) Respiratory acidosis Status: Acute Problems: Comment Review of Relevant I have reviewed the following items reese (where applicable) has been applied. Labs Laboratory Tests Test 10/15/16 04:55 10/16/16 09:45 Sodium Level 143 mmol/L (136-145) 142 mmol/L (136-145) Potassium Level 3.1 mmol/L (3.5-5.1) 3.5 mmol/L (3.5-5.1) Chloride Level 106 mmol/L (98-107) 103 mmol/L (98-107) Carbon Dioxide Level 25 mmol/L (21-32) 29 mmol/L (21-32) Anion Gap 12 (6-14) 10 (6-14) Blood Urea Nitrogen 15 mg/dL (8-26) 20 mg/dL (8-26) Creatinine 0.9 mg/dL (0.7-1.3) 1.2 mg/dL (0.7-1.3) Estimated GFR (Cockcroft-Gault) 87.0 62.4 Glucose Level 118 mg/dL (70-99) 220 mg/dL (70-99) Calcium Level 8.4 mg/dL (8.5-10.1) 9.0 mg/dL (8.5-10.1) Magnesium Level 1.9 mg/dL (1.8-2.4) White Blood Count 9.0 x10^3/uL (4.0-11.0) Red Blood Count 5.53 x10^6/uL (4.30-5.70) Hemoglobin 15.5 g/dL (13.0-17.5) Hematocrit 45.1 % (39.0-53.0) Mean Corpuscular Volume 82 fL (79-100) Mean Corpuscular Hemoglobin 28 pg (25-35) Mean Corpuscular Hemoglobin Concent 34 g/dL (31-37) Red Cell Distribution Width 15.0 % (11.5-14.5) Platelet Count 200 x10^3/uL (140-400) Neutrophils (%) (Auto) 85 % (31-73) Lymphocytes (%) (Auto) 6 % (24-48) Monocytes (%) (Auto) 7 % (0-9) Eosinophils (%) (Auto) 1 % (0-3) Basophils (%) (Auto) 0 % (0-3) Neutrophils # (Auto) 7.7 x10^3uL (1.8-7.7) Lymphocytes # (Auto) 0.6 x10^3/uL (1.0-4.8) Monocytes # (Auto) 0.6 x10^3/uL (0.0-1.1) Eosinophils # (Auto) 0.1 x10^3/uL (0.0-0.7) Basophils # (Auto) 0.0 x10^3/uL (0.0-0.2) Laboratory Tests Test 10/16/16 09:45 White Blood Count 9.0 x10^3/uL (4.0-11.0) Red Blood Count 5.53 x10^6/uL (4.30-5.70) Hemoglobin 15.5 g/dL (13.0-17.5) Hematocrit 45.1 % (39.0-53.0) Mean Corpuscular Volume 82 fL (79-100) Mean Corpuscular Hemoglobin 28 pg (25-35) Mean Corpuscular Hemoglobin Concent 34 g/dL (31-37) Red Cell Distribution Width 15.0 % (11.5-14.5) Platelet Count 200 x10^3/uL (140-400) Neutrophils (%) (Auto) 85 % (31-73) Lymphocytes (%) (Auto) 6 % (24-48) Monocytes (%) (Auto) 7 % (0-9) Eosinophils (%) (Auto) 1 % (0-3) Basophils (%) (Auto) 0 % (0-3) Neutrophils # (Auto) 7.7 x10^3uL (1.8-7.7) Lymphocytes # (Auto) 0.6 x10^3/uL (1.0-4.8) Monocytes # (Auto) 0.6 x10^3/uL (0.0-1.1) Eosinophils # (Auto) 0.1 x10^3/uL (0.0-0.7) Basophils # (Auto) 0.0 x10^3/uL (0.0-0.2) Sodium Level 142 mmol/L (136-145) Potassium Level 3.5 mmol/L (3.5-5.1) Chloride Level 103 mmol/L (98-107) Carbon Dioxide Level 29 mmol/L (21-32) Anion Gap 10 (6-14) Blood Urea Nitrogen 20 mg/dL (8-26) Creatinine 1.2 mg/dL (0.7-1.3) Estimated GFR (Cockcroft-Gault) 62.4 Glucose Level 220 mg/dL (70-99) Calcium Level 9.0 mg/dL (8.5-10.1) Microbiology 10/13/16 Blood Culture - Preliminary, Resulted NO GROWTH AFTER 3 DAYS 10/14/16 Urine Culture - Preliminary, Resulted 10/14/16 Urine Culture Result 1 (MATTHEW) - Preliminary, Resulted Medications Current Medications Propofol 50 ml @ As Directed STK-MED ONCE IV ; Start 10/12/16 at 23:15; Stop at 23:16; Status DC Sodium Chloride 1,000 ml @ 1,000 mls/hr Q1H IV Last administered on 10/12/16t 23:15; Start 10/12/16 at 23:45; Stop 10/13/16 at 00:44; Status DC Nitroglycerin/ Dextrose 250 ml @ 0 mls/hr CONT PRN IV SEE I/O RECORD Last administered on 10/12/16 23:56; Start 10/12/16 at 23:30; Stop 10/13/16 at 11:14 ; Status DC Propofol 100 ml @ 0 mls/hr CONT PRN IV SEE I/O RECORD Last administered on 10/14 03:28; Start 10/12/16 at 23:45; Stop 10/14/16 at 18:02; Status DC Propofol 50 ml @ 0 mls/hr 1X ONCE IV Last administered on 10/12/16 23:18; Start 10/12/16 at 23:45; Stop 10/12/16 at 23:46; Status DC Furosemide (Lasix) 80 mg 1X ONCE IVP Last administered on 10/12/16 22:48; Start 10/12/16 at 23:45; Stop 10/12/16 at 23:46; Status DC Rocuronium [place] (Zemuron) 50 mg 1X ONCE IV Last administered on 10/13/16 00:15; Start 10/13/16 at 00:15; Stop 10/13/16 at 00:16; Status DC Etomidate (Amidate) 20 mg 1X ONCE IV Last administered on 10/12/16 23:10; Start 10/13/16 at 00:30; Stop 10/13/16 at 00:31; Status DC Iohexol (Omnipaque 300 Mg/ml) 60 ml 1X ONCE IV Last administered on 10/13/16 01:03; Start 10/13/16 at 01:00; Stop 10/13/16 at 01:01; Status DC Info (Do NOT chart on this entry -- for MONITORING) 1 each PRN DAILY PRN MC SEE COMMENTS; Start 10/13/16 at 00:30; Stop 10/15/16 at 00:29; Status DC Ondansetron HCl (Zofran) 4 mg PRN Q8HRS PRN IV NAUSEA/VOMITING; Start 10/13/16 at 01:15; Stop 10/14/16 at 01:14; Status DC Sodium Chloride 1,000 ml @ 125 mls/hr Q8H IV Last administered on 10/13/16 17 :43; Start 10/13/16 at 01:09; Stop 10/14/16 at 01:08; Status DC Acetaminophen (Tylenol) 650 mg PRN Q4HRS PRN PO FEVER; Start 10/13/16 at 01:15 ; Stop 10/14/16 at 01:14; Status DC Levofloxacin/ Dextrose (Levaquin Per Pharmacy) 1 each PRN DAILY PRN MC SEE COMMENTS; Start 10/13/16 at 01:45 Levofloxacin/ Dextrose 100 ml @ 100 mls/hr 1X ONCE IV Last administered on 02:29; Start 10/13/16 at 02:00; Stop 10/13/16 at 02:59; Status DC Rocuronium [place] (Zemuron) 50 mg 1X ONCE IV Last administered on 10/12/16 23:10; Start 10/13/16 at 02:15; Stop 10/13/16 at 02:26; Status DC Levofloxacin/ Dextrose 100 ml @ 100 mls/hr Q24H IV Last administered on 22:45; Start 10/13/16 at 23:00; Stop 10/15/16 at 15:34; Status DC Sodium Chloride 500 ml @ 500 mls/hr 1X ONCE IV Last administered on 01:13; Start 10/13/16 at 03:30; Stop 10/13/16 at 04:29; Status DC Furosemide (Lasix) 40 mg DAILY IVP Last administered on 10/16/16 08:38; Start 10/13/16 at 11:15 Metoprolol Tartrate (Lopressor) 5 mg PRN Q6HRS PRN IVP systolic >150 Last administered on 10/15/16 23:39; Start 10/14/16 at 09:45 Hydralazine HCl (Apresoline) 10 mg PRN Q4HRS PRN IVP systolic >160 Last administered on 10/15/16 08:51; Start 10/14/16 at 09:45 Atorvastatin Calcium (Lipitor) 40 mg QHS PO Last administered on 10/15/16 19: 58; Start 10/14/16 at 21:00 Lisinopril (Prinivil) 10 mg DAILY PO Last administered on 10/14/16 13:43; Start 10/14/16 at 12:45; Stop 10/15/16 at 10:33; Status DC Aspirin (Ecotrin) 81 mg DAILYWBKFT PO Last administered on 10/16/16 08:38; Start 10/14/16 at 12:45 Metoprolol Succinate (Toprol Xl) 25 mg DAILY PO Last administered on 10/16/16 08:39; Start 10/14/16 at 12:45; Stop 10/16/16 at 11:30; Status DC Potassium Chloride (Klor-Con) 40 meq 1X ONCE PO Last administered on 13:44; Start 10/14/16 at 13:00; Stop 10/14/16 at 13:01; Status DC Potassium Chloride (Klor-Con) 20 meq DAILYWBKFT PO Last administered on 08:39; Start 10/15/16 at 08:00 Potassium Chloride (Klor-Con) 40 meq 1X ONCE PO Last administered on 08:50; Start 10/15/16 at 08:15; Stop 10/15/16 at 08:16; Status DC Lisinopril (Prinivil) 40 mg DAILY PO Last administered on 10/16/16 08:37; Start 10/16/16 at 09:00 Amlodipine Besylate (Norvasc) 5 mg DAILY PO ; Start 10/15/16 at 13:00; Stop at 13:46; Status DC Albuterol Sulfate (Ventolin Neb Soln) 2.5 mg PRN Q6HRS PRN NEB SHORTNESS OF BREATH; Start 10/15/16 at 12:00 Acetaminophen (Tylenol) 650 mg PRN Q6HRS PRN PO FEVER; Start 10/15/16 at 13:45 Ondansetron HCl (Zofran) 4 mg PRN Q6HRS PRN IV NAUSEA/VOMITING; Start 10/15/16 at 13:45 Morphine Sulfate 2 mg PRN Q2HR PRN IV PAIN; Start 10/15/16 at 13:45 Tramadol HCl (Ultram) 50 mg PRN Q6HRS PRN PO PAIN; Start 10/15/16 at 13:45 Hydralazine HCl (Apresoline) 10 mg PRN Q4HRS PRN IVP ELEVATED BP, SEE COMMENTS ; Start 10/15/16 at 13:45; Stop 10/15/16 at 15:35; Status DC Docusate Sodium (Colace) 100 mg PRN DAILY PRN PO CONSTIPATION; Start 10/15/16 at 13:45 Enoxaparin Sodium (Lovenox 40mg Syringe) 40 mg Q24H SQ Last administered on 12:27; Start 10/15/16 at 14:00 Guaifenesin (Mucinex) 600 mg BID PO Last administered on 10/16/16 08:38; Start 10/15/16 at 14:00 Levofloxacin (Levaquin) 500 mg QHS PO Last administered on 10/15/16 19:58; Start 10/15/16 at 21:00 Carvedilol (Coreg) 6.25 mg BIDWMEALS PO ; Start 10/16/16 at 17:00 Amlodipine Besylate (Norvasc) 10 mg DAILY PO Last administered on 10/16/16 12: 26; Start 10/16/16 at 11:40 Active Scripts Active Hydrocodone-Apap 5-325 (Hydrocodone Bit/Acetaminophen) 1 Each Tablet 1-2 Tab PO PRN Q6HRS PRN Lisinopril 10 Mg Tablet 1 Tab PO DAILY Vitals/I & O Vital Sign - Last 24 Hours 10/15/16 10/15/16 10/15/16 10/15/16 15:00 19:38 20:00 20:01 Temp 98.2 97.7 98.2 97.7 Pulse 74 77 Resp 16 20 B/P (MAP) 144/88 (106) 147/100 (116) Pulse Ox 98 98 97 O2 Delivery Room Air Room Air Room Air Room Air 10/15/16 10/15/16 10/16/16 10/16/16 23:34 23:39 03:29 07:00 Temp 98.8 98.0 98.8 98.0 Pulse 86 86 82 68 Resp 18 18 B/P (MAP) 171/113 (132) 171/113 157/108 (124) Pulse Ox 96 96 O2 Delivery Room Air Room Air 10/16/16 10/16/16 10/16/16 10/16/16 08:00 08:37 08:39 10:59 Temp 97.7 97.7 Pulse 68 68 55 Resp 16 B/P (MAP) 157/108 157/108 126/93 (104) Pulse Ox 95 O2 Delivery Room Air Room Air 10/16/16 12:26 Pulse 55 B/P (MAP) 126/93 Intake and Output 10/15/16 10/15/16 10/16/16 15:00 23:00 07:00 Intake Total 1560 ml Balance 1560 ml LUPE GUZMAN MD October 16, 2016 13:28
[2016-10-16] MEDS: CARVEDILOL 6.25 MG TABLET. PO SCH (17:20)
[2016-10-16 19:53] VITALS: BP 121/74
[2016-10-16] MEDS: ATORVASTATIN CALCIUM 40 MG TABLET. PO SCH (20:37)
[2016-10-16 23:30] VITALS: BP 124/83
[2016-10-17 03:44] LABS: BASO # 0.1 x10^3/uL (0.0-0.2); BASO % 1 % (0-3); EOS % 2 % (0-3); HEMATOCRIT 43.5 % (39.0-53.0); HEMOGLOBIN 14.5 g/dL (13.0-17.5); LYMPH % 12 % (24-48); MEAN CORPUSCULAR HEMOGLOBIN 28 pg (25-35); MEAN CORPUSCULAR HGB CONC 33 g/dL (31-37); MEAN CORPUSCULAR VOLUME 83 fL (79-100); MONO % 12 % (0-9); NEUT % 74 % (31-73); PLATELET COUNT 191 x10^3/uL (140-400); RED BLOOD COUNT 5.22 x10^6/uL (4.30-5.70); RED CELL DISTRIBUTION WIDTH 15.1 % (11.5-14.5); WHITE BLOOD COUNT 8.3 x10^3/uL (4.0-11.0)
[2016-10-17 03:58] VITALS: BP 152/93
[2016-10-17 04:03] LABS: CALCIUM 9.1 mg/dL (8.5-10.1); CREATININE 1.2 mg/dL (0.7-1.3); GFR 62.4; POTASSIUM 3.6 mmol/L (3.5-5.1)
[2016-10-17 07:00] VITALS: BP 122/97
[2016-10-17] MEDS: ASPIRIN ENTERIC COATED 81 MG TABLET.DR. PO SCH (08:02)
[2016-10-17] MEDS: CARVEDILOL 6.25 MG TABLET. PO SCH ×2 (08:02→16:05)
[2016-10-17] MEDS: POTASSIUM CHLORIDE 20 MEQ TABLET.ER. PO SCH (08:03)
[2016-10-17] MEDS: amLODIPine BESYLATE 10 MG TABLET PO SCH (08:03)
[2016-10-17] MEDS: LISINOPRIL 10 MG TABLET PO SCH (08:04)
[2016-10-17] MEDS: FUROSEMIDE 40 MG/4 ML VIAL. IVP SCH (08:04)
[2016-10-17 10:54] VITALS: BP 127/78
--- NOTE | 2016-10-17 11:49 | PDOC ---
PROGRESS NOTES Chief Complaint Chief Complaint ACUTE hypoxic resp failure with CHF acute systolic CHF with EF 25% HTN urgency h/o Hep C Noncompliance tobaccoism hypokalemia possible COPD with possible CAP PLAN: FU WITH card, pulm still on levaquin, add mucinex on lasix 40mg iv daily, consider change to po, defer to card lisinopril, increased dose by card for HTN, dc metoprolol, change to coreg, add amlodipine in and out strict weight daily may need cath for possible coronary dz, had chest pain 1 month ago replete K albuterol prn dvt ppx History of Present Illness History of Present Illness orthopnea much better mild cough BP controlled low K resolved Vitals Vitals Vital Signs Date Time Temp Pulse Resp B/P (MAP) Pulse Ox O2 Delivery O2 Flow Rate FiO2 10/17/16 10:54 97.9 54 18 127/78 (94) 95 Room Air 97.9 10/16/16 20:00 3.0 Physical Exam General: Alert Heart: Regular rate, Normal S1, Normal S2 Lungs: Clear Abdomen: Soft Extremities: No cyanosis, Normal pulses, Other (bl feet 1+ edema) Skin: No rashes, No breakdown, No significant lesion Labs LABS Laboratory Tests Test 10/17/16 03:26 White Blood Count 8.3 x10^3/uL (4.0-11.0) Red Blood Count 5.22 x10^6/uL (4.30-5.70) Hemoglobin 14.5 g/dL (13.0-17.5) Hematocrit 43.5 % (39.0-53.0) Mean Corpuscular Volume 83 fL (79-100) Mean Corpuscular Hemoglobin 28 pg (25-35) Mean Corpuscular Hemoglobin Concent 33 g/dL (31-37) Red Cell Distribution Width 15.1 % (11.5-14.5) Platelet Count 191 x10^3/uL (140-400) Neutrophils (%) (Auto) 74 % (31-73) Lymphocytes (%) (Auto) 12 % (24-48) Monocytes (%) (Auto) 12 % (0-9) Eosinophils (%) (Auto) 2 % (0-3) Basophils (%) (Auto) 1 % (0-3) Neutrophils # (Auto) 6.1 x10^3uL (1.8-7.7) Lymphocytes # (Auto) 1.0 x10^3/uL (1.0-4.8) Monocytes # (Auto) 1.0 x10^3/uL (0.0-1.1) Eosinophils # (Auto) 0.1 x10^3/uL (0.0-0.7) Basophils # (Auto) 0.1 x10^3/uL (0.0-0.2) Sodium Level 142 mmol/L (136-145) Potassium Level 3.6 mmol/L (3.5-5.1) Chloride Level 104 mmol/L (98-107) Carbon Dioxide Level 30 mmol/L (21-32) Anion Gap 8 (6-14) Blood Urea Nitrogen 25 mg/dL (8-26) Creatinine 1.2 mg/dL (0.7-1.3) Estimated GFR (Cockcroft-Gault) 62.4 Glucose Level 116 mg/dL (70-99) Calcium Level 9.1 mg/dL (8.5-10.1) Review of Systems Review of Systems no fever, chills, sob or chest pain Assessment and Plan Assessmemt and Plan Problems Medical Problems: (1) Acute congestive heart failure Status: Acute (2) Acute respiratory failure Status: Acute (3) Metabolic acidosis Status: Acute (4) Respiratory acidosis Status: Acute Problems: Comment Review of Relevant I have reviewed the following items reese (where applicable) has been applied. Labs Laboratory Tests Test 10/16/16 09:45 10/17/16 03:26 White Blood Count 9.0 x10^3/uL (4.0-11.0) 8.3 x10^3/uL (4.0-11.0) Red Blood Count 5.53 x10^6/uL (4.30-5.70) 5.22 x10^6/uL (4.30-5.70) Hemoglobin 15.5 g/dL (13.0-17.5) 14.5 g/dL (13.0-17.5) Hematocrit 45.1 % (39.0-53.0) 43.5 % (39.0-53.0) Mean Corpuscular Volume 82 fL (79-100) 83 fL (79-100) Mean Corpuscular Hemoglobin 28 pg (25-35) 28 pg (25-35) Mean Corpuscular Hemoglobin Concent 34 g/dL (31-37) 33 g/dL (31-37) Red Cell Distribution Width 15.0 % (11.5-14.5) 15.1 % (11.5-14.5) Platelet Count 200 x10^3/uL (140-400) 191 x10^3/uL (140-400) Neutrophils (%) (Auto) 85 % (31-73) 74 % (31-73) Lymphocytes (%) (Auto) 6 % (24-48) 12 % (24-48) Monocytes (%) (Auto) 7 % (0-9) 12 % (0-9) Eosinophils (%) (Auto) 1 % (0-3) 2 % (0-3) Basophils (%) (Auto) 0 % (0-3) 1 % (0-3) Neutrophils # (Auto) 7.7 x10^3uL (1.8-7.7) 6.1 x10^3uL (1.8-7.7) Lymphocytes # (Auto) 0.6 x10^3/uL (1.0-4.8) 1.0 x10^3/uL (1.0-4.8) Monocytes # (Auto) 0.6 x10^3/uL (0.0-1.1) 1.0 x10^3/uL (0.0-1.1) Eosinophils # (Auto) 0.1 x10^3/uL (0.0-0.7) 0.1 x10^3/uL (0.0-0.7) Basophils # (Auto) 0.0 x10^3/uL (0.0-0.2) 0.1 x10^3/uL (0.0-0.2) Sodium Level 142 mmol/L (136-145) 142 mmol/L (136-145) Potassium Level 3.5 mmol/L (3.5-5.1) 3.6 mmol/L (3.5-5.1) Chloride Level 103 mmol/L (98-107) 104 mmol/L (98-107) Carbon Dioxide Level 29 mmol/L (21-32) 30 mmol/L (21-32) Anion Gap 10 (6-14) 8 (6-14) Blood Urea Nitrogen 20 mg/dL (8-26) 25 mg/dL (8-26) Creatinine 1.2 mg/dL (0.7-1.3) 1.2 mg/dL (0.7-1.3) Estimated GFR (Cockcroft-Gault) 62.4 62.4 Glucose Level 220 mg/dL (70-99) 116 mg/dL (70-99) Calcium Level 9.0 mg/dL (8.5-10.1) 9.1 mg/dL (8.5-10.1) Laboratory Tests Test 10/17/16 03:26 White Blood Count 8.3 x10^3/uL (4.0-11.0) Red Blood Count 5.22 x10^6/uL (4.30-5.70) Hemoglobin 14.5 g/dL (13.0-17.5) Hematocrit 43.5 % (39.0-53.0) Mean Corpuscular Volume 83 fL (79-100) Mean Corpuscular Hemoglobin 28 pg (25-35) Mean Corpuscular Hemoglobin Concent 33 g/dL (31-37) Red Cell Distribution Width 15.1 % (11.5-14.5) Platelet Count 191 x10^3/uL (140-400) Neutrophils (%) (Auto) 74 % (31-73) Lymphocytes (%) (Auto) 12 % (24-48) Monocytes (%) (Auto) 12 % (0-9) Eosinophils (%) (Auto) 2 % (0-3) Basophils (%) (Auto) 1 % (0-3) Neutrophils # (Auto) 6.1 x10^3uL (1.8-7.7) Lymphocytes # (Auto) 1.0 x10^3/uL (1.0-4.8) Monocytes # (Auto) 1.0 x10^3/uL (0.0-1.1) Eosinophils # (Auto) 0.1 x10^3/uL (0.0-0.7) Basophils # (Auto) 0.1 x10^3/uL (0.0-0.2) Sodium Level 142 mmol/L (136-145) Potassium Level 3.6 mmol/L (3.5-5.1) Chloride Level 104 mmol/L (98-107) Carbon Dioxide Level 30 mmol/L (21-32) Anion Gap 8 (6-14) Blood Urea Nitrogen 25 mg/dL (8-26) Creatinine 1.2 mg/dL (0.7-1.3) Estimated GFR (Cockcroft-Gault) 62.4 Glucose Level 116 mg/dL (70-99) Calcium Level 9.1 mg/dL (8.5-10.1) Microbiology 10/13/16 Blood Culture - Preliminary, Resulted NO GROWTH AFTER 4 DAYS 10/14/16 Urine Culture - Final, Complete 10/14/16 Urine Culture Result 1 (MATTHEW) - Final, Complete Medications Current Medications Propofol 50 ml @ As Directed STK-MED ONCE IV ; Start 10/12/16 at 23:15; Stop at 23:16; Status DC Sodium Chloride 1,000 ml @ 1,000 mls/hr Q1H IV Last administered on 10/12/16 23:15; Start 10/12/16 at 23:45; Stop 10/13/16 at 00:44; Status DC Nitroglycerin/ Dextrose 250 ml @ 0 mls/hr CONT PRN IV SEE I/O RECORD Last administered on 10/12/16 23:56; Start 10/12/16 at 23:30; Stop 10/13/16 at 11:14 ; Status DC Propofol 100 ml @ 0 mls/hr CONT PRN IV SEE I/O RECORD Last administered on 10/14 03:28; Start 10/12/16 at 23:45; Stop 10/14/16 at 18:02; Status DC Propofol 50 ml @ 0 mls/hr 1X ONCE IV Last administered on 10/12/16 23:18; Start 10/12/16 at 23:45; Stop 10/12/16 at 23:46; Status DC Furosemide (Lasix) 80 mg 1X ONCE IVP Last administered on 10/12/16 22:48; Start 10/12/16 at 23:45; Stop 10/12/16 at 23:46; Status DC Rocuronium [place] (Zemuron) 50 mg 1X ONCE IV Last administered on 10/13/16 00:15; Start 10/13/16 at 00:15; Stop 10/13/16 at 00:16; Status DC Etomidate (Amidate) 20 mg 1X ONCE IV Last administered on 10/12/16 23:10; Start 10/13/16 at 00:30; Stop 10/13/16 at 00:31; Status DC Iohexol (Omnipaque 300 Mg/ml) 60 ml 1X ONCE IV Last administered on 10/13/16 01:03; Start 10/13/16 at 01:00; Stop 10/13/16 at 01:01; Status DC Info (Do NOT chart on this entry -- for MONITORING) 1 each PRN DAILY PRN MC SEE COMMENTS; Start 10/13/16 at 00:30; Stop 10/15/16 at 00:29; Status DC Ondansetron HCl (Zofran) 4 mg PRN Q8HRS PRN IV NAUSEA/VOMITING; Start 10/13/16 at 01:15; Stop 10/14/16 at 01:14; Status DC Sodium Chloride 1,000 ml @ 125 mls/hr Q8H IV Last administered on 10/13/16 17 :43; Start 10/13/16 at 01:09; Stop 10/14/16 at 01:08; Status DC Acetaminophen (Tylenol) 650 mg PRN Q4HRS PRN PO FEVER; Start 10/13/16 at 01:15 ; Stop 10/14/16 at 01:14; Status DC Levofloxacin/ Dextrose (Levaquin Per Pharmacy) 1 each PRN DAILY PRN MC SEE COMMENTS; Start 10/13/16 at 01:45 Levofloxacin/ Dextrose 100 ml @ 100 mls/hr 1X ONCE IV Last administered on 02:29; Start 10/13/16 at 02:00; Stop 10/13/16 at 02:59; Status DC Rocuronium [place] (Zemuron) 50 mg 1X ONCE IV Last administered on 10/12/16 23:10; Start 10/13/16 at 02:15; Stop 10/13/16 at 02:26; Status DC Levofloxacin/ Dextrose 100 ml @ 100 mls/hr Q24H IV Last administered on 22:45; Start 10/13/16 at 23:00; Stop 10/15/16 at 15:34; Status DC Sodium Chloride 500 ml @ 500 mls/hr 1X ONCE IV Last administered on 01:13; Start 10/13/16 at 03:30; Stop 10/13/16 at 04:29; Status DC Furosemide (Lasix) 40 mg DAILY IVP Last administered on 10/17/16 08:04; Start 10/13/16 at 11:15 Metoprolol Tartrate (Lopressor) 5 mg PRN Q6HRS PRN IVP systolic >150 Last administered on 10/15/16 23:39; Start 10/14/16 at 09:45; Stop 10/16/16 at 13:26 ; Status DC Hydralazine HCl (Apresoline) 10 mg PRN Q4HRS PRN IVP ELEVATED BP, SEE COMMENTS Last administered on 10/15/16 08:51; Start 10/14/16 at 09:45 Atorvastatin Calcium (Lipitor) 40 mg QHS PO Last administered on 10/16/16 20: 37; Start 10/14/16 at 21:00 Lisinopril (Prinivil) 10 mg DAILY PO Last administered on 10/14/16 13:43; Start 10/14/16 at 12:45; Stop 10/15/16 at 10:33; Status DC Aspirin (Ecotrin) 81 mg DAILYWBKFT PO Last administered on 10/17/16 08:02; Start 10/14/16 at 12:45 Metoprolol Succinate (Toprol Xl) 25 mg DAILY PO Last administered on 10/16/16 08:39; Start 10/14/16 at 12:45; Stop 10/16/16 at 11:30; Status DC Potassium Chloride (Klor-Con) 40 meq 1X ONCE PO Last administered on 13:44; Start 10/14/16 at 13:00; Stop 10/14/16 at 13:01; Status DC Potassium Chloride (Klor-Con) 20 meq DAILYWBKFT PO Last administered on 08:03; Start 10/15/16 at 08:00 Potassium Chloride (Klor-Con) 40 meq 1X ONCE PO Last administered on 08:50; Start 10/15/16 at 08:15; Stop 10/15/16 at 08:16; Status DC Lisinopril (Prinivil) 40 mg DAILY PO Last administered on 10/17/16 08:04; Start 10/16/16 at 09:00 Amlodipine Besylate (Norvasc) 5 mg DAILY PO ; Start 10/15/16 at 13:00; Stop at 13:46; Status DC Albuterol Sulfate (Ventolin Neb Soln) 2.5 mg PRN Q6HRS PRN NEB SHORTNESS OF BREATH; Start 10/15/16 at 12:00 Acetaminophen (Tylenol) 650 mg PRN Q6HRS PRN PO FEVER; Start 10/15/16 at 13:45 Ondansetron HCl (Zofran) 4 mg PRN Q6HRS PRN IV NAUSEA/VOMITING; Start 10/15/16 at 13:45 Morphine Sulfate 2 mg PRN Q2HR PRN IV PAIN; Start 10/15/16 at 13:45 Tramadol HCl (Ultram) 50 mg PRN Q6HRS PRN PO PAIN; Start 10/15/16 at 13:45 Hydralazine HCl (Apresoline) 10 mg PRN Q4HRS PRN IVP ELEVATED BP, SEE COMMENTS ; Start 10/15/16 at 13:45; Stop 10/15/16 at 15:35; Status DC Docusate Sodium (Colace) 100 mg PRN DAILY PRN PO CONSTIPATION; Start 10/15/16 at 13:45 Enoxaparin Sodium (Lovenox 40mg Syringe) 40 mg Q24H SQ Last administered on 12:27; Start 10/15/16 at 14:00 Guaifenesin (Mucinex) 600 mg BID PO Last administered on 10/17/16 08:03; Start 10/15/16 at 14:00 Levofloxacin (Levaquin) 500 mg QHS PO Last administered on 10/16/16 20:37; Start 10/15/16 at 21:00 Carvedilol (Coreg) 6.25 mg BIDWMEALS PO Last administered on 10/17/16 08:02; Start 10/16/16 at 17:00 Amlodipine Besylate (Norvasc) 10 mg DAILY PO Last administered on 10/17/16 08: 03; Start 10/16/16 at 11:40 Active Scripts Active Hydrocodone-Apap 5-325 (Hydrocodone Bit/Acetaminophen) 1 Each Tablet 1-2 Tab PO PRN Q6HRS PRN Lisinopril 10 Mg Tablet 1 Tab PO DAILY Vitals/I & O Vital Sign - Last 24 Hours 10/16/16 10/16/16 10/16/16 10/16/16 12:26 17:20 19:53 20:00 Temp 98.4 98.4 Pulse 55 55 60 Resp 16 B/P (MAP) 126/93 126/93 121/74 (90) Pulse Ox 96 O2 Delivery Room Air Room Air O2 Flow Rate 3.0 10/16/16 10/17/16 10/17/16 10/17/16 23:30 03:58 07:00 08:02 Temp 98.2 98.5 97.9 98.2 98.5 97.9 Pulse 60 73 63 63 Resp 16 16 18 B/P (MAP) 124/83 (97) 152/93 (112) 122/97 (105) 122/97 Pulse Ox 97 97 95 O2 Delivery Room Air Room Air Room Air 10/17/16 10/17/16 10/17/16 10/17/16 08:03 08:04 08:51 10:54 Temp 97.9 97.9 Pulse 63 63 54 Resp 18 B/P (MAP) 122/97 122/97 127/78 (94) Pulse Ox 95 O2 Delivery Room Air Room Air Intake and Output 10/16/16 10/16/16 10/17/16 15:00 23:00 07:00 Intake Total 1300 ml 200 ml Balance 1300 ml 200 ml LUPE GUZMAN MD October 17, 2016 11:49
[2016-10-17] MEDS: ENOXAPARIN 40 MG/0.4 ML SYRINGE. SQ SCH (13:18)
[2016-10-17 15:00] VITALS: BP 121/80
[2016-10-17 20:19] VITALS: BP 140/90
[2016-10-17] MEDS: ATORVASTATIN CALCIUM 40 MG TABLET. PO SCH (21:03)
[2016-10-17 23:26] VITALS: BP 155/93
[2016-10-18] VITALS (19 sets, daily range): BP systolic 115–183; BP diastolic 61–131
[2016-10-18] MEDS: hydrALAZINE 20 MG/ML VIAL. IVP PRN (03:08)
[2016-10-18 05:53] LABS: BASO # 0.1 x10^3/uL (0.0-0.2); BASO % 1 % (0-3); EOS % 2 % (0-3); HEMATOCRIT 44.7 % (39.0-53.0); HEMOGLOBIN 15.7 g/dL (13.0-17.5); LYMPH # 0.8 x10^3/uL (1.0-4.8); LYMPH % 8 % (24-48); MEAN CORPUSCULAR HEMOGLOBIN 29 pg (25-35); MEAN CORPUSCULAR HGB CONC 35 g/dL (31-37); MEAN CORPUSCULAR VOLUME 81 fL (79-100); MONO % 11 % (0-9); NEUT % 77 % (31-73); PLATELET COUNT 214 x10^3/uL (140-400); RED BLOOD COUNT 5.51 x10^6/uL (4.30-5.70); RED CELL DISTRIBUTION WIDTH 14.9 % (11.5-14.5); WHITE BLOOD COUNT 9.7 x10^3/uL (4.0-11.0)
[2016-10-18 06:08] LABS: CALCIUM 8.9 mg/dL (8.5-10.1); CREATININE 1.1 mg/dL (0.7-1.3); POTASSIUM 3.8 mmol/L (3.5-5.1)
[2016-10-18] MEDS ORDERED: IOHEXOL 300 MG/ML 100ML VIAL. ONE ×2 (07:36→07:44)
[2016-10-18] MEDS: amLODIPine BESYLATE 10 MG TABLET PO SCH (07:37)
[2016-10-18] MEDS: CARVEDILOL 6.25 MG TABLET. PO SCH ×2 (07:38→17:10)
[2016-10-18] MEDS: LISINOPRIL 10 MG TABLET PO SCH (07:38)
[2016-10-18] MEDS: FUROSEMIDE 40 MG/4 ML VIAL. IVP SCH (07:40)
[2016-10-18] MEDS: POTASSIUM CHLORIDE 20 MEQ TABLET.ER. PO SCH (07:40)
[2016-10-18] MEDS: ASPIRIN ENTERIC COATED 81 MG TABLET.DR. PO SCH (07:40)
[2016-10-18] MEDS ORDERED: LIDOCAINE 2% 20 ML VIAL. ONE (07:43)
[2016-10-18] MEDS ORDERED: VERAPAMIL 5 MG/2 ML VIAL. ONE (07:56)
[2016-10-18] MEDS ORDERED: NITROGLYCERIN 200 MCG/2 ML SYRINGE FOR CATH/VASC LAB. ONE (07:56)
[2016-10-18] MEDS ORDERED: HEPARIN for IV BOLUS 10,000 UNIT/10 ML VIAL. ONE (07:57)
[2016-10-18] MEDS ORDERED: fentaNYL PF VIAL 100 MCG/2 ML VIAL ONE (07:57)
[2016-10-18] MEDS ORDERED: MIDAZOLAM HCL/PF 2 MG/2 ML VIAL. ONE (07:57)
[2016-10-18] MEDS ORDERED: BIVALIRUDIN 250 MG VIAL. IV ONE ×2 (08:26→08:30)
[2016-10-18] MEDS ORDERED: NITROGLYCERIN 200 MCG/2 ML SYRINGE FOR CATH/VASC LAB. IART ONE (08:30)
[2016-10-18] MEDS ORDERED: LIDOCAINE 2% 20 ML VIAL. IJ ONE (08:30)
[2016-10-18] MEDS ORDERED: VERAPAMIL 5 MG/2 ML VIAL. IART ONE (08:30)
[2016-10-18] MEDS ORDERED: HEPARIN for IV BOLUS 10,000 UNIT/10 ML VIAL. IART ONE (08:30)
[2016-10-18] MEDS ORDERED: MIDAZOLAM HCL/PF 2 MG/2 ML VIAL. IV ONE (08:30)
[2016-10-18] MEDS ORDERED: IOHEXOL 300 MG/ML 100ML VIAL. IART ONE (08:30)
[2016-10-18] MEDS ORDERED: fentaNYL PF VIAL 100 MCG/2 ML VIAL IV ONE (08:30)
[2016-10-18] MEDS ORDERED: CONTRAST GIVEN MC PRN (08:30)
--- NOTE | 2016-10-18 08:42 | PDOC ---
MODERATE SEDATION ASSESSMENT RISKS/ALTERNATIVES Risks/Alternatives Risks and alternatives of this type of sedation and procedure discussed with: RISK/ALTERNATIVES: Patient H & P ON CHART H & P H & P on chart and reviewed for co-morbid conditions and appropriate labs. H&P ON CHART: Yes STATUS PREG STATUS ASSESSED: N/A MEDS/ALLERGIES REVIEWED Meds/Allergies Reviewed Medications and Allergies including time and route of recently administered narcotics and sedatives. MEDS/ALLERGIES REVIEWED: Yes ASA RATING ASA RATING: II AIRWAY ASSESSMENT Airway Assessment Airway patency, oral function limitations, presence of caps, crowns, dentures, partials, and ability to extend neck assessed. AIRWAY ASSESSMENT: Yes MALLAMPATI SCORE MALLAMPATI SCORE: II PRE-SEDATION ASSESSMENT PRE-SEDATION ASSESSMENT: Yes NYA ZHANG MD October 18, 2016 08:42
[2016-10-18] MEDS ORDERED: NITROGLYCERIN SUBLINGUAL 0.4 MG BOTTLE OF 25. SL PRN (08:45)
[2016-10-18] MEDS ORDERED: IV 1/2 NORMAL SALINE 1,000 ML IV SCH (09:00)
--- NOTE | 2016-10-18 09:22 | CARD ---
APPROVED REPORT Procedure(s) performed: 1. Left heart catheterization, selective coronary angiography and left ventr iculography via right transradial approach. 2. Instantaneous wave free ratio (IFR) for left anterior descending artery. INDICATION The indication(s) include : Unstable angina, acute on chronic systolic heart failure, cardiomyopathy. PROCEDURE NARRATIVE After explaining the risks, benefits and alternative options, informed consent was obtained from ryan ent. Patient was brought to the cardiac Agricultural Services Director and right wrist was prepped and draped in the usual fashion after confirming a positive modified Horace's test. Arterial access was obtained in the [facility] t radial artery and a 6 [place] sheath was inserted. 6 [place] Alexis catheter was used to perform brandon ective angiography of the left and right coronary arteries. Left ventriculography was not performed s reddy recent 2-D echo showed LVEF 25-30%. Since patient was found to have angiographically borderline significant stenosis involving the left anterior descending artery, a decision was made to perform ph ysiologic assessment using Instantaneous wave free ratio (IFR). This came back physiologically signif icant at 0.88. Patient tolerated the procedure well. Hemostasis was achieved using TR band. There were no immediate complications. The following findings were noted. FINDINGS Coronary angiography: a. The left main coronary artery arose from the left sinus of Valsalva, gave rise to the left anteri or descending and left circumflex arteries and did not show any significant stenosis. b. The left anterior descending artery showed 60% stenosis in the midsegment that was found to be ph ysiologically significant based on IFR measurement of 0.88. c. The left circumflex artery showed 100% occlusion in the proximal segment of a large second obtuse marginal branch with distal reconstitution from left to left collaterals. The third obtuse marginal branch showed 99% stenosis in the proximal to midsegment. d. The right coronary artery was a large and dominant vessel arising from the right sinus of Valsalv a that showed 95% stenosis in the midsegment. Conclusion 1. Severe three-vessel coronary artery disease 2. Ischemic cardiomyopathy with LVEF 25-30% on recent 2-D echo Recommendations Cardiothoracic surgery team consultation for possible coronary artery bypass surgery.
--- NOTE | 2016-10-18 11:18 | PDOC ---
PROGRESS NOTES Chief Complaint Chief Complaint ACUTE hypoxic resp failure with CHF acute systolic CHF with EF 25% HTN urgency h/o Hep C Noncompliance tobaccoism hypokalemia possible COPD with possible CAP PLAN: FU WITH card, pulm still on levaquin, add mucinex on lasix 40mg iv daily, consider change to po, defer to card lisinopril, increased dose by card for HTN, dc metoprolol, change to coreg, add amlodipine in and out strict weight daily replete K albuterol prn dvt ppx cath 10/18 History of Present Illness History of Present Illness orthopnea much better mild cough BP controlled low K resolved Vitals Vitals Vital Signs Date Time Temp Pulse Resp B/P (MAP) Pulse Ox O2 Delivery O2 Flow Rate FiO2 10/18/16 09:40 69 15 97 Nasal Cannula 3.0 10/18/16 08:41 126/81 10/18/16 07:12 98.2 98.2 Physical Exam General: Alert Heart: Regular rate, Normal S1, Normal S2 Lungs: Clear Abdomen: Soft Extremities: No cyanosis, Normal pulses, Other (bl feet 1+ edema) Skin: No rashes, No breakdown, No significant lesion Labs LABS Laboratory Tests Test 10/18/16 05:25 White Blood Count 9.7 x10^3/uL (4.0-11.0) Red Blood Count 5.51 x10^6/uL (4.30-5.70) Hemoglobin 15.7 g/dL (13.0-17.5) Hematocrit 44.7 % (39.0-53.0) Mean Corpuscular Volume 81 fL (79-100) Mean Corpuscular Hemoglobin 29 pg (25-35) Mean Corpuscular Hemoglobin Concent 35 g/dL (31-37) Red Cell Distribution Width 14.9 % (11.5-14.5) Platelet Count 214 x10^3/uL (140-400) Neutrophils (%) (Auto) 77 % (31-73) Lymphocytes (%) (Auto) 8 % (24-48) Monocytes (%) (Auto) 11 % (0-9) Eosinophils (%) (Auto) 2 % (0-3) Basophils (%) (Auto) 1 % (0-3) Neutrophils # (Auto) 7.5 x10^3uL (1.8-7.7) Lymphocytes # (Auto) 0.8 x10^3/uL (1.0-4.8) Monocytes # (Auto) 1.1 x10^3/uL (0.0-1.1) Eosinophils # (Auto) 0.2 x10^3/uL (0.0-0.7) Basophils # (Auto) 0.1 x10^3/uL (0.0-0.2) Sodium Level 139 mmol/L (136-145) Potassium Level 3.8 mmol/L (3.5-5.1) Chloride Level 104 mmol/L (98-107) Carbon Dioxide Level 28 mmol/L (21-32) Anion Gap 7 (6-14) Blood Urea Nitrogen 25 mg/dL (8-26) Creatinine 1.1 mg/dL (0.7-1.3) Estimated GFR (Cockcroft-Gault) 69.0 Glucose Level 132 mg/dL (70-99) Calcium Level 8.9 mg/dL (8.5-10.1) Review of Systems Review of Systems no fever, chills, sob or chest pain Assessment and Plan Assessmemt and Plan Problems Medical Problems: (1) Acute congestive heart failure Status: Acute (2) Acute respiratory failure Status: Acute (3) Metabolic acidosis Status: Acute (4) Respiratory acidosis Status: Acute Problems: Comment Review of Relevant I have reviewed the following items reese (where applicable) has been applied. Labs Laboratory Tests Test 10/17/16 03:26 10/18/16 05:25 White Blood Count 8.3 x10^3/uL (4.0-11.0) 9.7 x10^3/uL (4.0-11.0) Red Blood Count 5.22 x10^6/uL (4.30-5.70) 5.51 x10^6/uL (4.30-5.70) Hemoglobin 14.5 g/dL (13.0-17.5) 15.7 g/dL (13.0-17.5) Hematocrit 43.5 % (39.0-53.0) 44.7 % (39.0-53.0) Mean Corpuscular Volume 83 fL (79-100) 81 fL (79-100) Mean Corpuscular Hemoglobin 28 pg (25-35) 29 pg (25-35) Mean Corpuscular Hemoglobin Concent 33 g/dL (31-37) 35 g/dL (31-37) Red Cell Distribution Width 15.1 % (11.5-14.5) 14.9 % (11.5-14.5) Platelet Count 191 x10^3/uL (140-400) 214 x10^3/uL (140-400) Neutrophils (%) (Auto) 74 % (31-73) 77 % (31-73) Lymphocytes (%) (Auto) 12 % (24-48) 8 % (24-48) Monocytes (%) (Auto) 12 % (0-9) 11 % (0-9) Eosinophils (%) (Auto) 2 % (0-3) 2 % (0-3) Basophils (%) (Auto) 1 % (0-3) 1 % (0-3) Neutrophils # (Auto) 6.1 x10^3uL (1.8-7.7) 7.5 x10^3uL (1.8-7.7) Lymphocytes # (Auto) 1.0 x10^3/uL (1.0-4.8) 0.8 x10^3/uL (1.0-4.8) Monocytes # (Auto) 1.0 x10^3/uL (0.0-1.1) 1.1 x10^3/uL (0.0-1.1) Eosinophils # (Auto) 0.1 x10^3/uL (0.0-0.7) 0.2 x10^3/uL (0.0-0.7) Basophils # (Auto) 0.1 x10^3/uL (0.0-0.2) 0.1 x10^3/uL (0.0-0.2) Sodium Level 142 mmol/L (136-145) 139 mmol/L (136-145) Potassium Level 3.6 mmol/L (3.5-5.1) 3.8 mmol/L (3.5-5.1) Chloride Level 104 mmol/L (98-107) 104 mmol/L (98-107) Carbon Dioxide Level 30 mmol/L (21-32) 28 mmol/L (21-32) Anion Gap 8 (6-14) 7 (6-14) Blood Urea Nitrogen 25 mg/dL (8-26) 25 mg/dL (8-26) Creatinine 1.2 mg/dL (0.7-1.3) 1.1 mg/dL (0.7-1.3) Estimated GFR (Cockcroft-Gault) 62.4 69.0 Glucose Level 116 mg/dL (70-99) 132 mg/dL (70-99) Calcium Level 9.1 mg/dL (8.5-10.1) 8.9 mg/dL (8.5-10.1) Laboratory Tests Test 10/18/16 05:25 White Blood Count 9.7 x10^3/uL (4.0-11.0) Red Blood Count 5.51 x10^6/uL (4.30-5.70) Hemoglobin 15.7 g/dL (13.0-17.5) Hematocrit 44.7 % (39.0-53.0) Mean Corpuscular Volume 81 fL (79-100) Mean Corpuscular Hemoglobin 29 pg (25-35) Mean Corpuscular Hemoglobin Concent 35 g/dL (31-37) Red Cell Distribution Width 14.9 % (11.5-14.5) Platelet Count 214 x10^3/uL (140-400) Neutrophils (%) (Auto) 77 % (31-73) Lymphocytes (%) (Auto) 8 % (24-48) Monocytes (%) (Auto) 11 % (0-9) Eosinophils (%) (Auto) 2 % (0-3) Basophils (%) (Auto) 1 % (0-3) Neutrophils # (Auto) 7.5 x10^3uL (1.8-7.7) Lymphocytes # (Auto) 0.8 x10^3/uL (1.0-4.8) Monocytes # (Auto) 1.1 x10^3/uL (0.0-1.1) Eosinophils # (Auto) 0.2 x10^3/uL (0.0-0.7) Basophils # (Auto) 0.1 x10^3/uL (0.0-0.2) Sodium Level 139 mmol/L (136-145) Potassium Level 3.8 mmol/L (3.5-5.1) Chloride Level 104 mmol/L (98-107) Carbon Dioxide Level 28 mmol/L (21-32) Anion Gap 7 (6-14) Blood Urea Nitrogen 25 mg/dL (8-26) Creatinine 1.1 mg/dL (0.7-1.3) Estimated GFR (Cockcroft-Gault) 69.0 Glucose Level 132 mg/dL (70-99) Calcium Level 8.9 mg/dL (8.5-10.1) Microbiology 10/13/16 Blood Culture - Final, Complete NO GROWTH AFTER 5 DAYS 10/14/16 Urine Culture - Final, Complete 10/14/16 Urine Culture Result 1 (MATTHEW) - Final, Complete Medications Current Medications Propofol 50 ml @ As Directed STK-MED ONCE IV ; Start 10/12/16 at 23:15; Stop at 23:16; Status DC Sodium Chloride 1,000 ml @ 1,000 mls/hr Q1H IV Last administered on 10/12/16 23:15; Start 10/12/16 at 23:45; Stop 10/13/16 at 00:44; Status DC Nitroglycerin/ Dextrose 250 ml @ 0 mls/hr CONT PRN IV SEE I/O RECORD Last administered on 10/12/16 23:56; Start 10/12/16 at 23:30; Stop 10/13/16 at 11:14 ; Status DC Propofol 100 ml @ 0 mls/hr CONT PRN IV SEE I/O RECORD Last administered on 10/14 03:28; Start 10/12/16 at 23:45; Stop 10/14/16 at 18:02; Status DC Propofol 50 ml @ 0 mls/hr 1X ONCE IV Last administered on 10/12/16 23:18; Start 10/12/16 at 23:45; Stop 10/12/16 at 23:46; Status DC Furosemide (Lasix) 80 mg 1X ONCE IVP Last administered on 10/12/16 22:48; Start 10/12/16 at 23:45; Stop 10/12/16 at 23:46; Status DC Rocuronium [place] (Zemuron) 50 mg 1X ONCE IV Last administered on 10/13/16 00:15; Start 10/13/16 at 00:15; Stop 10/13/16 at 00:16; Status DC Etomidate (Amidate) 20 mg 1X ONCE IV Last administered on 10/12/16 23:10; Start 10/13/16 at 00:30; Stop 10/13/16 at 00:31; Status DC Iohexol (Omnipaque 300 Mg/ml) 60 ml 1X ONCE IV Last administered on 10/13/16 01:03; Start 10/13/16 at 01:00; Stop 10/13/16 at 01:01; Status DC Info (Do NOT chart on this entry -- for MONITORING) 1 each PRN DAILY PRN MC SEE COMMENTS; Start 10/13/16 at 00:30; Stop 10/15/16 at 00:29; Status DC Ondansetron HCl (Zofran) 4 mg PRN Q8HRS PRN IV NAUSEA/VOMITING; Start 10/13/16 at 01:15; Stop 10/14/16 at 01:14; Status DC Sodium Chloride 1,000 ml @ 125 mls/hr Q8H IV Last administered on 10/13/16 17 :43; Start 10/13/16 at 01:09; Stop 10/14/16 at 01:08; Status DC Acetaminophen (Tylenol) 650 mg PRN Q4HRS PRN PO FEVER; Start 10/13/16 at 01:15 ; Stop 10/14/16 at 01:14; Status DC Levofloxacin/ Dextrose (Levaquin Per Pharmacy) 1 each PRN DAILY PRN MC SEE COMMENTS; Start 10/13/16 at 01:45 Levofloxacin/ Dextrose 100 ml @ 100 mls/hr 1X ONCE IV Last administered on 02:29; Start 10/13/16 at 02:00; Stop 10/13/16 at 02:59; Status DC Rocuronium [place] (Zemuron) 50 mg 1X ONCE IV Last administered on 10/12/16 23:10; Start 10/13/16 at 02:15; Stop 10/13/16 at 02:26; Status DC Levofloxacin/ Dextrose 100 ml @ 100 mls/hr Q24H IV Last administered on 22:45; Start 10/13/16 at 23:00; Stop 10/15/16 at 15:34; Status DC Sodium Chloride 500 ml @ 500 mls/hr 1X ONCE IV Last administered on 01:13; Start 10/13/16 at 03:30; Stop 10/13/16 at 04:29; Status DC Furosemide (Lasix) 40 mg DAILY IVP Last administered on 10/17/16 08:04; Start 10/13/16 at 11:15 Metoprolol Tartrate (Lopressor) 5 mg PRN Q6HRS PRN IVP systolic >150 Last administered on 10/15/16 23:39; Start 10/14/16 at 09:45; Stop 10/16/16 at 13:26 ; Status DC Hydralazine HCl (Apresoline) 10 mg PRN Q4HRS PRN IVP ELEVATED BP, SEE COMMENTS Last administered on 10/18/16 03:08; Start 10/14/16 at 09:45 Atorvastatin Calcium (Lipitor) 40 mg QHS PO Last administered on 10/17/16 21: 03; Start 10/14/16 at 21:00 Lisinopril (Prinivil) 10 mg DAILY PO Last administered on 10/14/16 13:43; Start 10/14/16 at 12:45; Stop 10/15/16 at 10:33; Status DC Aspirin (Ecotrin) 81 mg DAILYWBKFT PO Last administered on 10/17/16 08:02; Start 10/14/16 at 12:45 Metoprolol Succinate (Toprol Xl) 25 mg DAILY PO Last administered on 10/16/16 08:39; Start 10/14/16 at 12:45; Stop 10/16/16 at 11:30; Status DC Potassium Chloride (Klor-Con) 40 meq 1X ONCE PO Last administered on 13:44; Start 10/14/16 at 13:00; Stop 10/14/16 at 13:01; Status DC Potassium Chloride (Klor-Con) 20 meq DAILYWBKFT PO Last administered on 08:03; Start 10/15/16 at 08:00 Potassium Chloride (Klor-Con) 40 meq 1X ONCE PO Last administered on 08:50; Start 10/15/16 at 08:15; Stop 10/15/16 at 08:16; Status DC Lisinopril (Prinivil) 40 mg DAILY PO Last administered on 10/18/16 07:38; Start 10/16/16 at 09:00 Amlodipine Besylate (Norvasc) 5 mg DAILY PO ; Start 10/15/16 at 13:00; Stop at 13:46; Status DC Albuterol Sulfate (Ventolin Neb Soln) 2.5 mg PRN Q6HRS PRN NEB SHORTNESS OF BREATH; Start 10/15/16 at 12:00 Acetaminophen (Tylenol) 650 mg PRN Q6HRS PRN PO FEVER; Start 10/15/16 at 13:45 Ondansetron HCl (Zofran) 4 mg PRN Q6HRS PRN IV NAUSEA/VOMITING; Start 10/15/16 at 13:45 Morphine Sulfate 2 mg PRN Q2HR PRN IV PAIN; Start 10/15/16 at 13:45 Tramadol HCl (Ultram) 50 mg PRN Q6HRS PRN PO PAIN; Start 10/15/16 at 13:45 Hydralazine HCl (Apresoline) 10 mg PRN Q4HRS PRN IVP ELEVATED BP, SEE COMMENTS ; Start 10/15/16 at 13:45; Stop 10/15/16 at 15:35; Status DC Docusate Sodium (Colace) 100 mg PRN DAILY PRN PO CONSTIPATION; Start 10/15/16 at 13:45 Enoxaparin Sodium (Lovenox 40mg Syringe) 40 mg Q24H SQ Last administered on 13:18; Start 10/15/16 at 14:00 Guaifenesin (Mucinex) 600 mg BID PO Last administered on 10/17/16 21:03; Start 10/15/16 at 14:00 Levofloxacin (Levaquin) 500 mg QHS PO Last administered on 10/17/16 21:03; Start 10/15/16 at 21:00 Carvedilol (Coreg) 6.25 mg BIDWMEALS PO Last administered on 10/18/16 07:38; Start 10/16/16 at 17:00 Amlodipine Besylate (Norvasc) 10 mg DAILY PO Last administered on 10/18/16 07: 37; Start 10/16/16 at 11:40 Iohexol (Omnipaque 300 Mg/ml) 100 ml STK-MED ONCE .ROUTE ; Start 10/18/16 at 07: 36; Stop 10/18/16 at 07:37; Status DC Lidocaine HCl 20 ml STK-MED ONCE .ROUTE ; Start 10/18/16 at 07:43; Stop at 07:44; Status DC Heparin Sodium/ Sodium Chloride 1,000 ml @ As Directed STK-MED ONCE .ROUTE ; Start 10/18/16 at 07:43; Stop 10/18/16 at 07:44; Status DC Iohexol (Omnipaque 300 Mg/ml) 100 ml STK-MED ONCE .ROUTE ; Start 10/18/16 at 07: 44; Stop 10/18/16 at 07:45; Status DC Nitroglycerin (Nitroglycerin) 200 mcg STK-MED ONCE .ROUTE ; Start 10/18/16 at 07 :56; Stop 10/18/16 at 07:57; Status DC Verapamil HCl (Verapamil) 5 mg STK-MED ONCE .ROUTE ; Start 10/18/16 at 07:56; Stop 10/18/16 at 07:57; Status DC Midazolam HCl (Versed) 2 mg STK-MED ONCE .ROUTE ; Start 10/18/16 at 07:57; Stop 10/18/16 at 07:58; Status DC Heparin Sodium (Porcine) (Heparin Sodium) 10,000 unit STK-MED ONCE .ROUTE ; Start 10/18/16 at 07:57; Stop 10/18/16 at 07:58; Status DC Fentanyl Citrate (Fentanyl 2ml Vial) 100 mcg STK-MED ONCE .ROUTE ; Start at 07:57; Stop 10/18/16 at 07:58; Status DC Nitroglycerin (Nitroglycerin) 200 mcg 1X ONCE IART Last administered on 08:39; Start 10/18/16 at 08:30; Stop 10/18/16 at 08:31; Status DC Verapamil HCl (Verapamil) 2.5 mg 1X ONCE IART Last administered on 10/18/16 08:41; Start 10/18/16 at 08:30; Stop 10/18/16 at 08:31; Status DC Heparin Sodium (Porcine) (Heparin Sodium) 2,500 unit 1X ONCE IART Last administered on 10/18/16 08:43; Start 10/18/16 at 08:30; Stop 10/18/16 at 08:31 ; Status DC Heparin Sodium/ Sodium Chloride 1,000 unit 1X ONCE IART Last administered on 08:40; Start 10/18/16 at 08:30; Stop 10/18/16 at 08:31; Status DC Midazolam HCl (Versed) 2 mg 1X ONCE IV Last administered on 10/18/16 08:42; Start 10/18/16 at 08:30; Stop 10/18/16 at 08:31; Status DC Fentanyl Citrate (Fentanyl 2ml Vial) 100 mcg 1X ONCE IV Last administered on 08:42; Start 10/18/16 at 08:30; Stop 10/18/16 at 08:31; Status DC Iohexol (Omnipaque 300 Mg/ml) 100 ml 1X ONCE IART Last administered on 08:40; Start 10/18/16 at 08:30; Stop 10/18/16 at 08:31; Status DC Lidocaine HCl 20 ml 1X ONCE IJ Last administered on 10/18/16 08:41; Start at 08:30; Stop 10/18/16 at 08:31; Status DC Bivalirudin (Angiomax) 250 mg STK-MED ONCE IV ; Start 10/18/16 at 08:26; Stop at 08:27; Status DC Info (Do NOT chart on this entry -- for MONITORING) 1 each PRN DAILY PRN MC SEE COMMENTS; Start 10/18/16 at 08:30; Stop 10/20/16 at 08:29 Sodium Chloride 1,000 ml @ 60 mls/hr [id number] IV ; Start 10/18/16 at 09:00 Nitroglycerin (Nitrostat) 0.4 mg PRN Q5MIN PRN SL CHEST PAIN; Start 10/18/16 at 08:45 Active Scripts Active Hydrocodone-Apap 5-325 (Hydrocodone Bit/Acetaminophen) 1 Each Tablet 1-2 Tab PO PRN Q6HRS PRN Lisinopril 10 Mg Tablet 1 Tab PO DAILY Vitals/I & O Vital Sign - Last 24 Hours 10/17/16 10/17/16 10/17/16 10/17/16 15:00 16:05 19:00 20:00 Temp 97.8 97.8 Pulse 65 65 Resp 16 B/P (MAP) 121/80 (94) 121/80 Pulse Ox 96 O2 Delivery Room Air Room Air Room Air 10/17/16 10/17/16 10/18/16 10/18/16 20:19 23:26 03:08 03:09 Temp 98.1 98.2 98.2 98.1 98.2 98.2 Pulse 59 77 81 Resp 20 18 20 B/P (MAP) 140/90 (107) 155/93 (113) 183/114 183/114 (137) Pulse Ox 97 96 97 O2 Delivery Room Air Room Air Room Air 10/18/16 10/18/16 10/18/16 10/18/16 04:28 07:12 07:37 07:38 Temp 98.2 98.2 Pulse 80 79 79 79 Resp 18 B/P (MAP) 167/107 (127) 171/131 (144) 171/131 171/131 Pulse Ox 96 O2 Delivery Room Air 10/18/16 10/18/16 10/18/16 10/18/16 07:38 07:42 08:41 08:42 Pulse 79 69 Resp 18 B/P (MAP) 171/131 126/81 Pulse Ox 95 O2 Delivery Room Air Nasal Cannula O2 Flow Rate 3.0 2.0 10/18/16 10/18/16 10/18/16 10/18/16 08:44 08:55 09:10 09:25 Pulse 68 67 64 67 Resp 18 17 10 15 Pulse Ox 96 96 97 98 O2 Delivery Nasal Cannula Nasal Cannula Nasal Cannula Nasal Cannula O2 Flow Rate 2.0 3.0 3.0 3.0 10/18/16 09:40 Pulse 69 Resp 15 Pulse Ox 97 O2 Delivery Nasal Cannula O2 Flow Rate 3.0 Intake and Output 10/17/16 10/17/16 10/18/16 15:00 23:00 07:00 Intake Total 200 ml 460 ml Output Total 300 ml 2 ml Balance -100 ml 458 ml LUPE GUZMAN MD October 18, 2016 11:18
--- NOTE | 2016-10-18 11:44 | PDOC ---
PULMONARY PROGRESS NOTES Subjective pt with no complaints Vitals Vital Signs Date Time Temp Pulse Resp B/P (MAP) Pulse Ox O2 Delivery O2 Flow Rate FiO2 10/18/16 11:40 98.3 67 20 146/83 (104) 96 Room Air 98.3 10/18/16 09:40 3.0 ROS: No Nausea, No Chest Pain, No Abdominal Pain, No Increase Cough General: Alert Lungs: Clear Cardiovascular: S1, S2 Abdomen: Soft Neuro Exam: Alert Extremities: No Edema Skin: Warm, Dry Labs Laboratory Tests Test 10/17/16 03:26 10/18/16 05:25 White Blood Count 8.3 x10^3/uL (4.0-11.0) 9.7 x10^3/uL (4.0-11.0) Red Blood Count 5.22 x10^6/uL (4.30-5.70) 5.51 x10^6/uL (4.30-5.70) Hemoglobin 14.5 g/dL (13.0-17.5) 15.7 g/dL (13.0-17.5) Hematocrit 43.5 % (39.0-53.0) 44.7 % (39.0-53.0) Mean Corpuscular Volume 83 fL (79-100) 81 fL (79-100) Mean Corpuscular Hemoglobin 28 pg (25-35) 29 pg (25-35) Mean Corpuscular Hemoglobin Concent 33 g/dL (31-37) 35 g/dL (31-37) Red Cell Distribution Width 15.1 % (11.5-14.5) 14.9 % (11.5-14.5) Platelet Count 191 x10^3/uL (140-400) 214 x10^3/uL (140-400) Neutrophils (%) (Auto) 74 % (31-73) 77 % (31-73) Lymphocytes (%) (Auto) 12 % (24-48) 8 % (24-48) Monocytes (%) (Auto) 12 % (0-9) 11 % (0-9) Eosinophils (%) (Auto) 2 % (0-3) 2 % (0-3) Basophils (%) (Auto) 1 % (0-3) 1 % (0-3) Neutrophils # (Auto) 6.1 x10^3uL (1.8-7.7) 7.5 x10^3uL (1.8-7.7) Lymphocytes # (Auto) 1.0 x10^3/uL (1.0-4.8) 0.8 x10^3/uL (1.0-4.8) Monocytes # (Auto) 1.0 x10^3/uL (0.0-1.1) 1.1 x10^3/uL (0.0-1.1) Eosinophils # (Auto) 0.1 x10^3/uL (0.0-0.7) 0.2 x10^3/uL (0.0-0.7) Basophils # (Auto) 0.1 x10^3/uL (0.0-0.2) 0.1 x10^3/uL (0.0-0.2) Sodium Level 142 mmol/L (136-145) 139 mmol/L (136-145) Potassium Level 3.6 mmol/L (3.5-5.1) 3.8 mmol/L (3.5-5.1) Chloride Level 104 mmol/L (98-107) 104 mmol/L (98-107) Carbon Dioxide Level 30 mmol/L (21-32) 28 mmol/L (21-32) Anion Gap 8 (6-14) 7 (6-14) Blood Urea Nitrogen 25 mg/dL (8-26) 25 mg/dL (8-26) Creatinine 1.2 mg/dL (0.7-1.3) 1.1 mg/dL (0.7-1.3) Estimated GFR (Cockcroft-Gault) 62.4 69.0 Glucose Level 116 mg/dL (70-99) 132 mg/dL (70-99) Calcium Level 9.1 mg/dL (8.5-10.1) 8.9 mg/dL (8.5-10.1) Laboratory Tests Test 10/18/16 05:25 White Blood Count 9.7 x10^3/uL (4.0-11.0) Red Blood Count 5.51 x10^6/uL (4.30-5.70) Hemoglobin 15.7 g/dL (13.0-17.5) Hematocrit 44.7 % (39.0-53.0) Mean Corpuscular Volume 81 fL (79-100) Mean Corpuscular Hemoglobin 29 pg (25-35) Mean Corpuscular Hemoglobin Concent 35 g/dL (31-37) Red Cell Distribution Width 14.9 % (11.5-14.5) Platelet Count 214 x10^3/uL (140-400) Neutrophils (%) (Auto) 77 % (31-73) Lymphocytes (%) (Auto) 8 % (24-48) Monocytes (%) (Auto) 11 % (0-9) Eosinophils (%) (Auto) 2 % (0-3) Basophils (%) (Auto) 1 % (0-3) Neutrophils # (Auto) 7.5 x10^3uL (1.8-7.7) Lymphocytes # (Auto) 0.8 x10^3/uL (1.0-4.8) Monocytes # (Auto) 1.1 x10^3/uL (0.0-1.1) Eosinophils # (Auto) 0.2 x10^3/uL (0.0-0.7) Basophils # (Auto) 0.1 x10^3/uL (0.0-0.2) Sodium Level 139 mmol/L (136-145) Potassium Level 3.8 mmol/L (3.5-5.1) Chloride Level 104 mmol/L (98-107) Carbon Dioxide Level 28 mmol/L (21-32) Anion Gap 7 (6-14) Blood Urea Nitrogen 25 mg/dL (8-26) Creatinine 1.1 mg/dL (0.7-1.3) Estimated GFR (Cockcroft-Gault) 69.0 Glucose Level 132 mg/dL (70-99) Calcium Level 8.9 mg/dL (8.5-10.1) Medications Active Scripts Medications Dose Route/Sig Max Daily Dose Days Date Category Hydrocodone-Apap 5-325 (Hydrocodone Bit/Acetaminophen) 1 Each Tablet 1-2 Tab PO PRN Q6HRS PRN 08/04/16 Rx Lisinopril 10 Mg Tablet 1 Tab PO DAILY 08/04/16 Rx Impression . 1. Acute respiratory failure, multifactorial secondary to acute pulmonary edema and pneumonia. 2. Pneumonia. 3. Acute systolic heart failure. The patient had echocardiogram revealing an ejection fraction of 25%. 4. Metabolic acidosis related to increased work of breathing. 5. Tobacco dependence. 6. Hypertension. 7. Hepatitis. Plan . 1. s/p cath/ MV CAD 2. CVS consult 3. Control blood pressure. 4. Continue Levaquin. 5. Monitor chest x-ray, 6. The patient instructed on the importance of discontinuing tobacco use. 7. Spirometry today MARÍA ELENA JACOBS MD October 18, 2016 11:44
[2016-10-18] MEDS ORDERED: ZOLPIDEM 5 MG TABLET. PO PRN ×2 (12:15→21:30)
--- NOTE | 2016-10-18 13:07 | RAD ---
Indication preop. Noncontrast imaging through the chest was performed. Note is made of a previous contrast examination 5 days earlier. Imaging through the upper abdomen is unremarkable. Contrast is noted in the renal collecting systems compatible with a recent contrast exam. There is coronary artery calcification. The thoracic aorta is unremarkable. Apart from some minimal calcification at the arch there is no appreciable calcification of the thoracic aorta and virtually no calcification is seen associated with the ascending thoracic aorta. There is no significant hilar or mediastinal adenopathy. There has been substantial improvement in the appearance of the chest relative to the previous exam. Changes of pulmonary edema, seen previously, have resolved. Substantial areas of volume loss seen previously at the lung bases has improved.. Some minimal volume loss in the dependent portion of the lung bases likely reflects dependent atelectasis. There is a small triangular nonsolid parenchymal opacity in the left lower lobe, image 29 series 2, which would be consistent with residual atelectasis or pneumonia. A dominant soft tissue mass in either lung is not seen. A new finding is not apparent. IMPRESSION: Substantial improvement in the appearance of the chest. No evidence of pulmonary edema on today's exam. Small nonsolid triangular parenchymal opacity in the left lower lobe may represent a focus of residual 0atelectasis or resolving pneumonia. No appreciable calcification of the thoracic aorta PQRS Compliance Statement: One or more of the following individualized dose reduction techniques were utilized for this examination: 1. Automated exposure control 2. Adjustment of the mA and/or kV according to patient size 3. Use of iterative reconstruction technique
[2016-10-18] MEDS: ENOXAPARIN 40 MG/0.4 ML SYRINGE. SQ SCH (14:38)
--- NOTE | 2016-10-18 15:35 | RAD ---
Bilateral duplex carotid sonography History: Preoperative CABG. Duplex sonography of the cervical portion of both carotid arteries was performed. Findings: Right side: Peak systolic flow velocity of the CCA is 96 cm/sec. Peak systolic flow velocity of the ICA is 60 cm/sec. The ICA/CCA ratio is 0.62. Peak end diastolic flow velocity of the ICA is 26 cm/sec. The peak systolic velocity of the ECA is 143 cm/sec. Mild intimal thickening is seen involving the common carotid artery. Mild calcified and noncalcified atherosclerotic plaquing is seen at the carotid bulb. Left side: Peak systolic flow velocity of the CCA is 99 cm/sec. Peak systolic flow velocity of the ICA is 71 cm/sec. The ICA/CCA ratio is 0.71. Peak end diastolic flow velocity of the ICA is 30 cm/sec. Peak systolic flow velocity of the ECA is 141 cm/sec. Mild intimal thickening is seen involving the common carotid artery. Mild calcified and noncalcified atherosclerotic plaquing is seen at the carotid bulb. Vertebral arteries: Bilateral vertebral arteries demonstrate antegrade flow. Impression: 1. No hemodynamically significant internal carotid artery stenosis identified. Note: Stenosis calculations for Doppler studies are derived from validated velocity criteria which are known to correlate with NASCET methodology of determining stenosis.
--- NOTE | 2016-10-18 15:41 | RAD ---
Bilateral lower extremity venous mapping History: Preoperative for CABG. Comparison: None. Grayscale ultrasound imaging was performed of the superficial veins of both lower extremities. Findings: Right greater saphenous vein near the junction with the common femoral vein has diameter of 5.3 mm. In the proximal thigh, right greater saphenous vein has diameter of 3.9 mm. In the mid thigh, diameter is 3.2 mm. In the distal thigh, diameter is 3.1 mm. At the right knee, diameter is 2.8 mm. In the proximal calf, diameter is 2.2 mm. In the mid calf, diameter is 2.4 mm. In the distal calf, diameter is 1.8 mm. Right greater saphenous vein is patent. Right lesser saphenous vein in the proximal calf has diameter of 2.5 mm. In the mid calf, diameter is 2.7 mm. In the distal calf, diameter is 1.4 mm. Right lesser saphenous vein is patent. The left lesser saphenous vein near the junction with the common femoral vein has diameter of 4.7 mm. In the proximal thigh, left greater saphenous vein has diameter of 3.5 mm. In the mid thigh, diameter is 3.2 mm. In the distal thigh, diameter is 4.1 mm. In the left popliteal region, diameter is 2.6 mm. In the proximal calf, diameter is 1.9 mm. In the mid calf, diameter is 0.9 mm. In the distal calf, diameter is 1.1 mm. Left greater saphenous vein is patent. Left lesser saphenous vein demonstrates occlusive superficial venous thrombosis. In the proximal calf, diameter is 1.6 mm. In the mid calf, diameter of the left lesser saphenous vein is 1.5 mm. In the distal calf, diameter is 1.6 mm. Impression: 1. Left lesser saphenous vein demonstrate superficial venous thrombosis. 2. Bilateral greater saphenous veins and the right lesser saphenous vein are patent with diameters as above.
--- NOTE | 2016-10-18 16:15 | PDOC2 ---
CONSULT Date of Consult Date of Consult DATE: 10/18/16 TIME: 16:00 Reason for Consult Reason for Consult: Coronary artery disease Referring Physician Referring Physician: Dr Lopez Identification/Chief Complaint Chief Complaint SOB Source Source: Chart review, Patient History of Present Illness Reason for Visit: Mr Betancur is a 56-year-old male who presented to [facility] on October 13, 2016 with severe shortness of breath. He was hypoxic in hypercapnic requiring intubation and mechanical ventilation. The transthoracic echo showed an ejection fraction of 25%. He was eventually extubated after short period of diuresis and and up having a coronary angiography today which demonstrated a proximal 70% LAD stenosis, an occluded left circumflex, and a tight mid RCA stenosis. The patient has had worsening shortness of breath on minimal exertion over the past 2 months. He also reports intermittent chest pain with associated shortness of breath for several years. He also has a history of hepatitis C. I was consulted to consider the patient for surgical coronary revascularization. Past Medical History Cardiovascular: HTN Past Surgical History Past Surgical History: Other (unknown) Family History Family History: Family History Unknown Social History 1 pack per day ALCOHOL: occassional Lives: Friends Current Problem List Problem List Problems Medical Problems: (1) Acute congestive heart failure Status: Acute (2) Acute respiratory failure Status: Acute (3) Metabolic acidosis Status: Acute (4) Respiratory acidosis Status: Acute Current Medications Current Medications Current Medications Propofol 50 ml @ As Directed STK-MED ONCE IV ; Start 10/12/16 at 23:15; Stop at 23:16; Status DC Sodium Chloride 1,000 ml @ 1,000 mls/hr Q1H IV Last administered on 10/12/16 23:15; Start 10/12/16 at 23:45; Stop 10/13/16 at 00:44; Status DC Nitroglycerin/ Dextrose 250 ml @ 0 mls/hr CONT PRN IV SEE I/O RECORD Last administered on 10/12/16 23:56; Start 10/12/16 at 23:30; Stop 10/13/16 at 11:14 ; Status DC Propofol 100 ml @ 0 mls/hr CONT PRN IV SEE I/O RECORD Last administered on 10/14 03:28; Start 10/12/16 at 23:45; Stop 10/14/16 at 18:02; Status DC Propofol 50 ml @ 0 mls/hr 1X ONCE IV Last administered on 10/12/16 23:18; Start 10/12/16 at 23:45; Stop 10/12/16 at 23:46; Status DC Furosemide (Lasix) 80 mg 1X ONCE IVP Last administered on 10/12/16 22:48; Start 10/12/16 at 23:45; Stop 10/12/16 at 23:46; Status DC Rocuronium [place] (Zemuron) 50 mg 1X ONCE IV Last administered on 10/13/16 00:15; Start 10/13/16 at 00:15; Stop 10/13/16 at 00:16; Status DC Etomidate (Amidate) 20 mg 1X ONCE IV Last administered on 10/12/16 23:10; Start 10/13/16 at 00:30; Stop 10/13/16 at 00:31; Status DC Iohexol (Omnipaque 300 Mg/ml) 60 ml 1X ONCE IV Last administered on 10/13/16 01:03; Start 10/13/16 at 01:00; Stop 10/13/16 at 01:01; Status DC Info (Do NOT chart on this entry -- for MONITORING) 1 each PRN DAILY PRN MC SEE COMMENTS; Start 10/13/16 at 00:30; Stop 10/15/16 at 00:29; Status DC Ondansetron HCl (Zofran) 4 mg PRN Q8HRS PRN IV NAUSEA/VOMITING; Start 10/13/16 at 01:15; Stop 10/14/16 at 01:14; Status DC Sodium Chloride 1,000 ml @ 125 mls/hr Q8H IV Last administered on 10/13/16 17 :43; Start 10/13/16 at 01:09; Stop 10/14/16 at 01:08; Status DC Acetaminophen (Tylenol) 650 mg PRN Q4HRS PRN PO FEVER; Start 10/13/16 at 01:15 ; Stop 10/14/16 at 01:14; Status DC Levofloxacin/ Dextrose (Levaquin Per Pharmacy) 1 each PRN DAILY PRN MC SEE COMMENTS; Start 10/13/16 at 01:45 Levofloxacin/ Dextrose 100 ml @ 100 mls/hr 1X ONCE IV Last administered on 02:29; Start 10/13/16 at 02:00; Stop 10/13/16 at 02:59; Status DC Rocuronium [place] (Zemuron) 50 mg 1X ONCE IV Last administered on 10/12/16 23:10; Start 10/13/16 at 02:15; Stop 10/13/16 at 02:26; Status DC Levofloxacin/ Dextrose 100 ml @ 100 mls/hr Q24H IV Last administered on 22:45; Start 10/13/16 at 23:00; Stop 10/15/16 at 15:34; Status DC Sodium Chloride 500 ml @ 500 mls/hr 1X ONCE IV Last administered on 01:13; Start 10/13/16 at 03:30; Stop 10/13/16 at 04:29; Status DC Furosemide (Lasix) 40 mg DAILY IVP Last administered on 10/17/16 08:04; Start 10/13/16 at 11:15 Metoprolol Tartrate (Lopressor) 5 mg PRN Q6HRS PRN IVP systolic >150 Last administered on 10/15/16 23:39; Start 10/14/16 at 09:45; Stop 10/16/16 at 13:26 ; Status DC Hydralazine HCl (Apresoline) 10 mg PRN Q4HRS PRN IVP ELEVATED BP, SEE COMMENTS Last administered on 10/18/16 03:08; Start 10/14/16 at 09:45 Atorvastatin Calcium (Lipitor) 40 mg QHS PO Last administered on 10/17/16 21: 03; Start 10/14/16 at 21:00 Lisinopril (Prinivil) 10 mg DAILY PO Last administered on 10/14/16 13:43; Start 10/14/16 at 12:45; Stop 10/15/16 at 10:33; Status DC Aspirin (Ecotrin) 81 mg DAILYWBKFT PO Last administered on 10/17/16 08:02; Start 10/14/16 at 12:45; Stop 10/18/16 at 12:18; Status DC Metoprolol Succinate (Toprol Xl) 25 mg DAILY PO Last administered on 10/16/16 08:39; Start 10/14/16 at 12:45; Stop 10/16/16 at 11:30; Status DC Potassium Chloride (Klor-Con) 40 meq 1X ONCE PO Last administered on 13:44; Start 10/14/16 at 13:00; Stop 10/14/16 at 13:01; Status DC Potassium Chloride (Klor-Con) 20 meq DAILYWBKFT PO Last administered on 08:03; Start 10/15/16 at 08:00 Potassium Chloride (Klor-Con) 40 meq 1X ONCE PO Last administered on 08:50; Start 10/15/16 at 08:15; Stop 10/15/16 at 08:16; Status DC Lisinopril (Prinivil) 40 mg DAILY PO Last administered on 10/18/16 07:38; Start 10/16/16 at 09:00; Stop 10/18/16 at 12:18; Status DC Amlodipine Besylate (Norvasc) 5 mg DAILY PO ; Start 10/15/16 at 13:00; Stop at 13:46; Status DC Albuterol Sulfate (Ventolin Neb Soln) 2.5 mg PRN Q6HRS PRN NEB SHORTNESS OF BREATH; Start 10/15/16 at 12:00 Acetaminophen (Tylenol) 650 mg PRN Q6HRS PRN PO FEVER; Start 10/15/16 at 13:45 Ondansetron HCl (Zofran) 4 mg PRN Q6HRS PRN IV NAUSEA/VOMITING; Start 10/15/16 at 13:45 Morphine Sulfate 2 mg PRN Q2HR PRN IV PAIN; Start 10/15/16 at 13:45 Tramadol HCl (Ultram) 50 mg PRN Q6HRS PRN PO PAIN; Start 10/15/16 at 13:45 Hydralazine HCl (Apresoline) 10 mg PRN Q4HRS PRN IVP ELEVATED BP, SEE COMMENTS ; Start 10/15/16 at 13:45; Stop 10/15/16 at 15:35; Status DC Docusate Sodium (Colace) 100 mg PRN DAILY PRN PO CONSTIPATION; Start 10/15/16 at 13:45 Enoxaparin Sodium (Lovenox 40mg Syringe) 40 mg Q24H SQ Last administered on 14:38; Start 10/15/16 at 14:00; Stop 10/19/16 at 22:00 Guaifenesin (Mucinex) 600 mg BID PO Last administered on 10/17/16 21:03; Start 10/15/16 at 14:00 Levofloxacin (Levaquin) 500 mg QHS PO Last administered on 10/17/16 21:03; Start 10/15/16 at 21:00 Carvedilol (Coreg) 6.25 mg BIDWMEALS PO Last administered on 10/18/16 07:38; Start 10/16/16 at 17:00; Stop 10/22/16 at 23:59 Amlodipine Besylate (Norvasc) 10 mg DAILY PO Last administered on 10/18/16 07: 37; Start 10/16/16 at 11:40 Iohexol (Omnipaque 300 Mg/ml) 100 ml STK-MED ONCE .ROUTE ; Start 10/18/16 at 07: 36; Stop 10/18/16 at 07:37; Status DC Lidocaine HCl 20 ml STK-MED ONCE .ROUTE ; Start 10/18/16 at 07:43; Stop at 07:44; Status DC Heparin Sodium/ Sodium Chloride 1,000 ml @ As Directed STK-MED ONCE .ROUTE ; Start 10/18/16 at 07:43; Stop 10/18/16 at 07:44; Status DC Iohexol (Omnipaque 300 Mg/ml) 100 ml STK-MED ONCE .ROUTE ; Start 10/18/16 at 07: 44; Stop 10/18/16 at 07:45; Status DC Nitroglycerin (Nitroglycerin) 200 mcg STK-MED ONCE .ROUTE ; Start 10/18/16 at 07 :56; Stop 10/18/16 at 07:57; Status DC Verapamil HCl (Verapamil) 5 mg STK-MED ONCE .ROUTE ; Start 10/18/16 at 07:56; Stop 10/18/16 at 07:57; Status DC Midazolam HCl (Versed) 2 mg STK-MED ONCE .ROUTE ; Start 10/18/16 at 07:57; Stop 10/18/16 at 07:58; Status DC Heparin Sodium (Porcine) (Heparin Sodium) 10,000 unit STK-MED ONCE .ROUTE ; Start 10/18/16 at 07:57; Stop 10/18/16 at 07:58; Status DC Fentanyl Citrate (Fentanyl 2ml Vial) 100 mcg STK-MED ONCE .ROUTE ; Start at 07:57; Stop 10/18/16 at 07:58; Status DC Nitroglycerin (Nitroglycerin) 200 mcg 1X ONCE IART Last administered on 08:39; Start 10/18/16 at 08:30; Stop 10/18/16 at 08:31; Status DC Verapamil HCl (Verapamil) 2.5 mg 1X ONCE IART Last administered on 10/18/16 08:41; Start 10/18/16 at 08:30; Stop 10/18/16 at 08:31; Status DC Heparin Sodium (Porcine) (Heparin Sodium) 2,500 unit 1X ONCE IART Last administered on 10/18/16 08:43; Start 10/18/16 at 08:30; Stop 10/18/16 at 08:31 ; Status DC Heparin Sodium/ Sodium Chloride 1,000 unit 1X ONCE IART Last administered on 08:40; Start 10/18/16 at 08:30; Stop 10/18/16 at 08:31; Status DC Midazolam HCl (Versed) 2 mg 1X ONCE IV Last administered on 10/18/16 08:42; Start 10/18/16 at 08:30; Stop 10/18/16 at 08:31; Status DC Fentanyl Citrate (Fentanyl 2ml Vial) 100 mcg 1X ONCE IV Last administered on 08:42; Start 10/18/16 at 08:30; Stop 10/18/16 at 08:31; Status DC Iohexol (Omnipaque 300 Mg/ml) 100 ml 1X ONCE IART Last administered on 08:40; Start 10/18/16 at 08:30; Stop 10/18/16 at 08:31; Status DC Lidocaine HCl 20 ml 1X ONCE IJ Last administered on 10/18/16 08:41; Start at 08:30; Stop 10/18/16 at 08:31; Status DC Bivalirudin (Angiomax) 250 mg STK-MED ONCE IV ; Start 10/18/16 at 08:26; Stop at 08:27; Status DC Info (Do NOT chart on this entry -- for MONITORING) 1 each PRN DAILY PRN MC SEE COMMENTS; Start 10/18/16 at 08:30; Stop 10/20/16 at 08:29 Sodium Chloride 1,000 ml @ 60 mls/hr [id number] IV ; Start 10/18/16 at 09:00 Nitroglycerin (Nitrostat) 0.4 mg PRN Q5MIN PRN SL CHEST PAIN; Start 10/18/16 at 08:45 Vancomycin HCl 1.5 gm/Sodium Chloride 500 ml @ 250 mls/hr 1X ONCE IV ; Start 10/19/16 at 06:00; Stop 10/19/16 at 06:00; Status DC Zolpidem Tartrate (Ambien) 5 mg PRN QHS PRN PO INSOMNIA, MAY REPEAT IN 1HR; Start 10/18/16 at 12:15 Metoprolol Tartrate (Lopressor) 25 mg 1X ONCE PO ; Start 10/19/16 at 06:00; Stop 10/19/16 at 06:01 Aspirin (Ecotrin) 81 mg DAILYWBKFT PO ; Start 10/19/16 at 08:00; Status UNV Lisinopril (Prinivil) 40 mg DAILY PO ; Start 10/19/16 at 09:00; Status UNV Active Scripts Active Hydrocodone-Apap 5-325 (Hydrocodone Bit/Acetaminophen) 1 Each Tablet 1-2 Tab PO PRN Q6HRS PRN Lisinopril 10 Mg Tablet 1 Tab PO DAILY Allergies Allergies: Coded Allergies: Penicillins (Verified Allergy, Intermediate, 08/04/16) ROS General: No: Chills, Night Sweats, Fatigue, Malaise, Appetite PSYCHOLOGICAL ROS: No: Anxiety, Behavioral Disorder, Concentration difficultie , Decreased libido, Depression, Disorientation, Hallucinations, Hostility, Irritablity, Memory difficulties, Mood Swings, Obsessive thoughts, Physical abuse, Sexual abuse, Sleep disturbances, Suicidal ideation Eyes: No Blurry vision, No Decreased vision, No Double vision, No Dry eyes, No Excessive tearing, No Eye Pain, No Itchy Eyes, No Loss of vision, No Photophobia , No Scotomata, No Uses contacts, No Uses glasses HEENT: No: Heacaches, Visual Changes, Hearing change, Nasal congestion, Nasal discharge, Oral lesions, Sinus pain, Sore Throat, Epistaxis, Sneezing, Snoring, Tinnitus, Vertigo, Vocal changes ALLERGY AND IMMUNOLOGY: No: Hives, Insect Bite Sensitivity, Itchy/Watery Eyes, Nasal Congestion, Post Nasal Drip, Seasonal Allergies Hematological and Lymphatic: No: Bleeding Problems, Blood Clots, Blood Transfusions, Brusing, Night Sweats, Pallor, Swollen Lymph Nodes ENDOCRINE: No: Breast Changes, Galactorrhea, Hair Pattern Changes, Hot Flashes , Malaise/lethargy, Mood Swings, Palpitations, Polydipsia/polyuria, Skin Changes , Temperature Intolerance, Unexpected Weight Changes Respiratory: YES: Orthopnea, Shortness of breath, No: Cough, Hemoptysis, Pleuritic Pain, SOB with excertion, Sputum Changes, Stridor, Tachypnea, Wheezing Cardiovascular: yes Chest Pain, No Palpitations, No Orthopnea, No Paroxysmal Noc. Dyspnea, No Edema, No Lt Headedness Gastrointestinal: No Nausea, No Vomiting, No Abdominal Pain, No Diarrhea, No Constipation, No Melena, No Hematochezia Genitourinary: No Dysuria, No Frequency, No Incontinence, No Hematuria, No Retention, No Discharge, No Urgency, No Pain, No Flank Pain Musculoskeletal: No Gait Disturbance, No Joint Pain, No Joint Stiffness, No Joint Swelling, No Muscle Pain, No Muscular Weakness, No Pain In:, No Swelling In: Neurological: No Behavorial Changes, No Bowel/Bladder ControlChng, No Confusion , No Dizziness, No Gait Disturbance, No Headaches, No Impaired Coord/balance, No Memory Loss, No Numbness/Tingling, No Seizures, No Speech Problems, No Tremors, No Visual Changes, No Weakness Skin: No Dry Skin, No Eczema, No Hair Changes, No Lumps, No Mole Changes, No Mottling, No Nail Changes, No Pruritus, No Rash, No Skin Lesion Changes, No Acne Physical Exam General: Alert, Oriented X3, No acute distress HEENT: Atraumatic, PERRLA, EOMI Lungs: Clear to auscultation, Normal air movement Heart: Regular rate, Normal S1, Normal S2 Abdomen: Normal bowel sounds, Soft, No tenderness Extremities: No edema Skin: No significant lesion Neuro: Normal gait, Normal speech, Strength at 5/5 X4 ext, Normal tone, Sensation intact, Cranial nerves 3-12 NL Psych/Mental Status: Mental status NL MUSCULOSKELETAL: No joint tenderness Vitals VITALS Vital Signs Date Time Temp Pulse Resp B/P (MAP) Pulse Ox O2 Delivery O2 Flow Rate FiO2 10/18/16 12:57 159/61 (93) 10/18/16 12:30 84 98 Room Air 10/18/16 11:40 98.3 20 98.3 10/18/16 09:40 3.0 Labs Labs Laboratory Tests Test 10/17/16 03:26 10/18/16 05:25 White Blood Count 8.3 x10^3/uL (4.0-11.0) 9.7 x10^3/uL (4.0-11.0) Red Blood Count 5.22 x10^6/uL (4.30-5.70) 5.51 x10^6/uL (4.30-5.70) Hemoglobin 14.5 g/dL (13.0-17.5) 15.7 g/dL (13.0-17.5) Hematocrit 43.5 % (39.0-53.0) 44.7 % (39.0-53.0) Mean Corpuscular Volume 83 fL (79-100) 81 fL (79-100) Mean Corpuscular Hemoglobin 28 pg (25-35) 29 pg (25-35) Mean Corpuscular Hemoglobin Concent 33 g/dL (31-37) 35 g/dL (31-37) Red Cell Distribution Width 15.1 % (11.5-14.5) 14.9 % (11.5-14.5) Platelet Count 191 x10^3/uL (140-400) 214 x10^3/uL (140-400) Neutrophils (%) (Auto) 74 % (31-73) 77 % (31-73) Lymphocytes (%) (Auto) 12 % (24-48) 8 % (24-48) Monocytes (%) (Auto) 12 % (0-9) 11 % (0-9) Eosinophils (%) (Auto) 2 % (0-3) 2 % (0-3) Basophils (%) (Auto) 1 % (0-3) 1 % (0-3) Neutrophils # (Auto) 6.1 x10^3uL (1.8-7.7) 7.5 x10^3uL (1.8-7.7) Lymphocytes # (Auto) 1.0 x10^3/uL (1.0-4.8) 0.8 x10^3/uL (1.0-4.8) Monocytes # (Auto) 1.0 x10^3/uL (0.0-1.1) 1.1 x10^3/uL (0.0-1.1) Eosinophils # (Auto) 0.1 x10^3/uL (0.0-0.7) 0.2 x10^3/uL (0.0-0.7) Basophils # (Auto) 0.1 x10^3/uL (0.0-0.2) 0.1 x10^3/uL (0.0-0.2) Sodium Level 142 mmol/L (136-145) 139 mmol/L (136-145) Potassium Level 3.6 mmol/L (3.5-5.1) 3.8 mmol/L (3.5-5.1) Chloride Level 104 mmol/L (98-107) 104 mmol/L (98-107) Carbon Dioxide Level 30 mmol/L (21-32) 28 mmol/L (21-32) Anion Gap 8 (6-14) 7 (6-14) Blood Urea Nitrogen 25 mg/dL (8-26) 25 mg/dL (8-26) Creatinine 1.2 mg/dL (0.7-1.3) 1.1 mg/dL (0.7-1.3) Estimated GFR (Cockcroft-Gault) 62.4 69.0 Glucose Level 116 mg/dL (70-99) 132 mg/dL (70-99) Calcium Level 9.1 mg/dL (8.5-10.1) 8.9 mg/dL (8.5-10.1) Laboratory Tests Test 10/18/16 05:25 White Blood Count 9.7 x10^3/uL (4.0-11.0) Red Blood Count 5.51 x10^6/uL (4.30-5.70) Hemoglobin 15.7 g/dL (13.0-17.5) Hematocrit 44.7 % (39.0-53.0) Mean Corpuscular Volume 81 fL (79-100) Mean Corpuscular Hemoglobin 29 pg (25-35) Mean Corpuscular Hemoglobin Concent 35 g/dL (31-37) Red Cell Distribution Width 14.9 % (11.5-14.5) Platelet Count 214 x10^3/uL (140-400) Neutrophils (%) (Auto) 77 % (31-73) Lymphocytes (%) (Auto) 8 % (24-48) Monocytes (%) (Auto) 11 % (0-9) Eosinophils (%) (Auto) 2 % (0-3) Basophils (%) (Auto) 1 % (0-3) Neutrophils # (Auto) 7.5 x10^3uL (1.8-7.7) Lymphocytes # (Auto) 0.8 x10^3/uL (1.0-4.8) Monocytes # (Auto) 1.1 x10^3/uL (0.0-1.1) Eosinophils # (Auto) 0.2 x10^3/uL (0.0-0.7) Basophils # (Auto) 0.1 x10^3/uL (0.0-0.2) Sodium Level 139 mmol/L (136-145) Potassium Level 3.8 mmol/L (3.5-5.1) Chloride Level 104 mmol/L (98-107) Carbon Dioxide Level 28 mmol/L (21-32) Anion Gap 7 (6-14) Blood Urea Nitrogen 25 mg/dL (8-26) Creatinine 1.1 mg/dL (0.7-1.3) Estimated GFR (Cockcroft-Gault) 69.0 Glucose Level 132 mg/dL (70-99) Calcium Level 8.9 mg/dL (8.5-10.1) Assessment/Plan Assessment/Plan 56 -year-old male, with ischemic cardiomyopathy and ejection fraction 25%, history of chronic hepatitis C. Coronary angiography demonstrates severe three- vessel disease with a proximal 70% LAD stenosis, an occluded left circumflex and a tight mid RCA lesion. The patient certainly would be a candidate for high risk CABG considering his low EF and chronic hepatitis C. After talking to Dr. Lopez, it appears that his coronary lesions would be amenable to percutaneous intervention. The patient has opted to proceed with PCI rather than CABG. ISAEL ORELLANA MD October 18, 2016 16:15
[2016-10-18 16:32] LABS: ALBUMIN 3.3 g/dL (3.4-5.0); DIRECT BILIRUBIN 0.2 mg/dL (0.0-0.2); TOTAL BILIRUBIN 0.4 mg/dL (0.2-1.0); TOTAL PROTEIN 6.8 g/dL (6.4-8.2)
[2016-10-18] MEDS: LISINOPRIL 40 MG TABLET. PO SCH (17:10)
[2016-10-18] MEDS: MORPHINE SULFATE 2 MG/ML DISP.SYRIN. IV PRN (17:11)
[2016-10-18] MEDS: ATORVASTATIN CALCIUM 40 MG TABLET. PO SCH (21:44)
[2016-10-18] MEDS: diphenhydrAMINE HCL 25 MG CAPSULE PO PRN (21:44)
[2016-10-18] MEDS: traMADol 50 MG TABLET PO PRN (21:44)
[2016-10-19 03:58] VITALS: BP 189/118
[2016-10-19] MEDS: hydrALAZINE 20 MG/ML VIAL. IVP PRN (04:07)
[2016-10-19] MEDS ORDERED: VANCOMYCIN 1.5 GM in IV NORMAL SALINE 500ML BAG 500 ML IV ONE (06:00)
[2016-10-19] MEDS: METOPROLOL TART IMMED RELEASE 25 MG TABLET. PO ONE ×2 (06:00→09:16)
[2016-10-19 07:00] VITALS: BP 167/100
[2016-10-19 07:11] LABS: BASO # 0.1 x10^3/uL (0.0-0.2); BASO % 1 % (0-3); EOS % 2 % (0-3); HEMATOCRIT 48.4 % (39.0-53.0); HEMOGLOBIN 16.3 g/dL (13.0-17.5); LYMPH # 0.5 x10^3/uL (1.0-4.8); LYMPH % 5 % (24-48); MEAN CORPUSCULAR HEMOGLOBIN 28 pg (25-35); MEAN CORPUSCULAR HGB CONC 34 g/dL (31-37); MEAN CORPUSCULAR VOLUME 83 fL (79-100); MONO % 9 % (0-9); NEUT % 83 % (31-73); PLATELET COUNT 237 x10^3/uL (140-400); RED BLOOD COUNT 5.85 x10^6/uL (4.30-5.70); RED CELL DISTRIBUTION WIDTH 15.1 % (11.5-14.5); WHITE BLOOD COUNT 10.1 x10^3/uL (4.0-11.0)
[2016-10-19 07:26] LABS: CALCIUM 9.3 mg/dL (8.5-10.1); CREATININE 0.9 mg/dL (0.7-1.3); POTASSIUM 3.9 mmol/L (3.5-5.1)
[2016-10-19] MEDS: LISINOPRIL 40 MG TABLET. PO SCH (09:15)
[2016-10-19] MEDS: POTASSIUM CHLORIDE 20 MEQ TABLET.ER. PO SCH (09:15)
[2016-10-19] MEDS: CARVEDILOL 6.25 MG TABLET. PO SCH ×2 (09:15→15:47)
[2016-10-19] MEDS: ASPIRIN ENTERIC COATED 81 MG TABLET.DR. PO SCH (09:15)
[2016-10-19] MEDS: amLODIPine BESYLATE 10 MG TABLET PO SCH (09:16)
[2016-10-19] MEDS: FUROSEMIDE 40 MG/4 ML VIAL. IVP SCH (09:17)
[2016-10-19] MEDS ORDERED: CARVEDILOL 6.25 MG TABLET. PO ONE (10:15)
--- NOTE | 2016-10-19 10:45 | PDOC ---
CARDIO Progress Notes Date and Time Date of Service 10/19/2016 Time of Evaluation 1044 Subjective Subjective: No Chest Pain, No shortness of breath, No Palpitations, No Dizziness, Other (extubated. Cough. Mild SOA) Vitals Vitals Vital Signs Date Time Temp Pulse Resp B/P (MAP) Pulse Ox O2 Delivery O2 Flow Rate FiO2 10/19/16 10:23 72 167/100 10/19/16 08:00 Room Air 3.0 10/19/16 07:00 97.8 18 98 97.8 Weight Weight [ ] Input and Output Intake and Output Intake and Output 10/19/16 07:00 Intake Total 240 ml Balance 240 ml Intake Oral 240 ml # Voids 2 Laboratory Labs Laboratory Tests Test 10/19/16 06:45 White Blood Count 10.1 x10^3/uL (4.0-11.0) Red Blood Count 5.85 x10^6/uL (4.30-5.70) Hemoglobin 16.3 g/dL (13.0-17.5) Hematocrit 48.4 % (39.0-53.0) Mean Corpuscular Volume 83 fL (79-100) Mean Corpuscular Hemoglobin 28 pg (25-35) Mean Corpuscular Hemoglobin Concent 34 g/dL (31-37) Red Cell Distribution Width 15.1 % (11.5-14.5) Platelet Count 237 x10^3/uL (140-400) Neutrophils (%) (Auto) 83 % (31-73) Lymphocytes (%) (Auto) 5 % (24-48) Monocytes (%) (Auto) 9 % (0-9) Eosinophils (%) (Auto) 2 % (0-3) Basophils (%) (Auto) 1 % (0-3) Neutrophils # (Auto) 8.4 x10^3uL (1.8-7.7) Lymphocytes # (Auto) 0.5 x10^3/uL (1.0-4.8) Monocytes # (Auto) 0.9 x10^3/uL (0.0-1.1) Eosinophils # (Auto) 0.2 x10^3/uL (0.0-0.7) Basophils # (Auto) 0.1 x10^3/uL (0.0-0.2) Sodium Level 137 mmol/L (136-145) Potassium Level 3.9 mmol/L (3.5-5.1) Chloride Level 100 mmol/L (98-107) Carbon Dioxide Level 26 mmol/L (21-32) Anion Gap 11 (6-14) Blood Urea Nitrogen 15 mg/dL (8-26) Creatinine 0.9 mg/dL (0.7-1.3) Estimated GFR (Cockcroft-Gault) 87.0 Glucose Level 138 mg/dL (70-99) Calcium Level 9.3 mg/dL (8.5-10.1) Microbiology Micro Microbiology 10/13/16 Blood Culture - Final, Complete NO GROWTH AFTER 5 DAYS 10/14/16 Urine Culture - Final, Complete 10/14/16 Urine Culture Result 1 (MATTHEW) - Final, Complete Physical Exam HEENT: Neck Supple W Full Motion Chest: Symmetric LUNGS: Other (crackles in right base) Heart: S1S2, RRR, no murmurs Abdomen: Soft N/T Extremities: 2+ Dorsalis Pedis, No Edema Neurology: alert, oriented, follow commands Assessment Assessment 1. Acute systolic heart failure compensated with medical management - continue diuretics Echo shows depressed LV function with an EF of 25-30% 2. 3 v. CAD CTS consult obtain - declined due to high risk nuc viability scan today then ? PCI later this week 3. Malignant hypertension remains poorly controlled with SBP > 160 extra carvedilol dose now; increase to 25 mg BID prn hydralazine 4. Acute respiratory failure multifactorial given PNA and acute systolic HF extubated 10/14 per pulm 5. Pneumonia IV antibiotics per IM 6. substance use UDS + marijuana 7. Hypokalemia replaced 8. Tobaccoism cessation discussed and encouraged KENDELL ROGERS ROLL COVERER October 19, 2016 10:45
[2016-10-19] MEDS: CETIRIZINE HCL 10 MG TABLET. PO SCH (11:06)
--- NOTE | 2016-10-19 11:50 | PDOC ---
PULMONARY PROGRESS NOTES Subjective pt with no complaints Vitals Vital Signs Date Time Temp Pulse Resp B/P (MAP) Pulse Ox O2 Delivery O2 Flow Rate FiO2 10/19/16 10:23 72 167/100 10/19/16 08:00 Room Air 3.0 10/19/16 07:00 97.8 18 98 97.8 ROS: No Nausea, No Chest Pain, No Abdominal Pain, No Increase Cough General: Alert Lungs: Clear Cardiovascular: S1, S2 Abdomen: Soft Neuro Exam: Alert Extremities: No Edema Skin: Warm, Dry Labs Laboratory Tests Test 10/18/16 05:25 10/19/16 06:45 White Blood Count 9.7 x10^3/uL (4.0-11.0) 10.1 x10^3/uL (4.0-11.0) Red Blood Count 5.51 x10^6/uL (4.30-5.70) 5.85 x10^6/uL (4.30-5.70) Hemoglobin 15.7 g/dL (13.0-17.5) 16.3 g/dL (13.0-17.5) Hematocrit 44.7 % (39.0-53.0) 48.4 % (39.0-53.0) Mean Corpuscular Volume 81 fL (79-100) 83 fL (79-100) Mean Corpuscular Hemoglobin 29 pg (25-35) 28 pg (25-35) Mean Corpuscular Hemoglobin Concent 35 g/dL (31-37) 34 g/dL (31-37) Red Cell Distribution Width 14.9 % (11.5-14.5) 15.1 % (11.5-14.5) Platelet Count 214 x10^3/uL (140-400) 237 x10^3/uL (140-400) Neutrophils (%) (Auto) 77 % (31-73) 83 % (31-73) Lymphocytes (%) (Auto) 8 % (24-48) 5 % (24-48) Monocytes (%) (Auto) 11 % (0-9) 9 % (0-9) Eosinophils (%) (Auto) 2 % (0-3) 2 % (0-3) Basophils (%) (Auto) 1 % (0-3) 1 % (0-3) Neutrophils # (Auto) 7.5 x10^3uL (1.8-7.7) 8.4 x10^3uL (1.8-7.7) Lymphocytes # (Auto) 0.8 x10^3/uL (1.0-4.8) 0.5 x10^3/uL (1.0-4.8) Monocytes # (Auto) 1.1 x10^3/uL (0.0-1.1) 0.9 x10^3/uL (0.0-1.1) Eosinophils # (Auto) 0.2 x10^3/uL (0.0-0.7) 0.2 x10^3/uL (0.0-0.7) Basophils # (Auto) 0.1 x10^3/uL (0.0-0.2) 0.1 x10^3/uL (0.0-0.2) Sodium Level 139 mmol/L (136-145) 137 mmol/L (136-145) Potassium Level 3.8 mmol/L (3.5-5.1) 3.9 mmol/L (3.5-5.1) Chloride Level 104 mmol/L (98-107) 100 mmol/L (98-107) Carbon Dioxide Level 28 mmol/L (21-32) 26 mmol/L (21-32) Anion Gap 7 (6-14) 11 (6-14) Blood Urea Nitrogen 25 mg/dL (8-26) 15 mg/dL (8-26) Creatinine 1.1 mg/dL (0.7-1.3) 0.9 mg/dL (0.7-1.3) Estimated GFR (Cockcroft-Gault) 69.0 87.0 Glucose Level 132 mg/dL (70-99) 138 mg/dL (70-99) Calcium Level 8.9 mg/dL (8.5-10.1) 9.3 mg/dL (8.5-10.1) Total Bilirubin 0.4 mg/dL (0.2-1.0) Direct Bilirubin 0.2 mg/dL (0.0-0.2) Aspartate Amino Transf (AST/SGOT) 25 U/L (15-37) Alanine Aminotransferase (ALT/SGPT) 27 U/L (16-63) Alkaline Phosphatase 102 U/L (46-116) Total Protein 6.8 g/dL (6.4-8.2) Albumin 3.3 g/dL (3.4-5.0) Laboratory Tests Test 10/19/16 06:45 White Blood Count 10.1 x10^3/uL (4.0-11.0) Red Blood Count 5.85 x10^6/uL (4.30-5.70) Hemoglobin 16.3 g/dL (13.0-17.5) Hematocrit 48.4 % (39.0-53.0) Mean Corpuscular Volume 83 fL (79-100) Mean Corpuscular Hemoglobin 28 pg (25-35) Mean Corpuscular Hemoglobin Concent 34 g/dL (31-37) Red Cell Distribution Width 15.1 % (11.5-14.5) Platelet Count 237 x10^3/uL (140-400) Neutrophils (%) (Auto) 83 % (31-73) Lymphocytes (%) (Auto) 5 % (24-48) Monocytes (%) (Auto) 9 % (0-9) Eosinophils (%) (Auto) 2 % (0-3) Basophils (%) (Auto) 1 % (0-3) Neutrophils # (Auto) 8.4 x10^3uL (1.8-7.7) Lymphocytes # (Auto) 0.5 x10^3/uL (1.0-4.8) Monocytes # (Auto) 0.9 x10^3/uL (0.0-1.1) Eosinophils # (Auto) 0.2 x10^3/uL (0.0-0.7) Basophils # (Auto) 0.1 x10^3/uL (0.0-0.2) Sodium Level 137 mmol/L (136-145) Potassium Level 3.9 mmol/L (3.5-5.1) Chloride Level 100 mmol/L (98-107) Carbon Dioxide Level 26 mmol/L (21-32) Anion Gap 11 (6-14) Blood Urea Nitrogen 15 mg/dL (8-26) Creatinine 0.9 mg/dL (0.7-1.3) Estimated GFR (Cockcroft-Gault) 87.0 Glucose Level 138 mg/dL (70-99) Calcium Level 9.3 mg/dL (8.5-10.1) Medications Active Scripts Medications Dose Route/Sig Max Daily Dose Days Date Category Hydrocodone-Apap 5-325 (Hydrocodone Bit/Acetaminophen) 1 Each Tablet 1-2 Tab PO PRN Q6HRS PRN 08/04/16 Rx Lisinopril 10 Mg Tablet 1 Tab PO DAILY 08/04/16 Rx Impression . 1. Acute respiratory failure, multifactorial secondary to acute pulmonary edema and pneumonia. 2. Pneumonia. 3. Acute systolic heart failure. The patient had echocardiogram revealing an ejection fraction of 25%. 4. Metabolic acidosis related to increased work of breathing. 5. Tobacco dependence. 6. Hypertension. 7. Hepatitis. Plan . 1. s/p cath/ MV CAD 2. CVS consulted. The patient certainly would be a candidate for high risk CABG considering his low EF and chronic hepatitis C.. The patient has opted to proceed with PCI rather than CABG. 3. Control blood pressure. 4. Continue Levaquin. 5. Monitor chest x-ray, 6. The patient instructed on the importance of discontinuing tobacco use. 7. Spirometry done MARÍA ELENA JACOBS MD October 19, 2016 11:49
--- NOTE | 2016-10-19 12:15 | PDOC ---
PROGRESS NOTES Chief Complaint Chief Complaint ACUTE hypoxic resp failure with CHF acute systolic CHF with EF 25% HTN urgency h/o Hep C Noncompliance tobaccoism hypokalemia possible COPD with possible CAP History of Present Illness History of Present Illness On the phone NO Acute issues nO CP, or soa TCVS note reviewed, no surgical plans, Hx hep c PLanned for PCI later by cards Feels congested, requests H2 antag PLAN: CArrdiac cath later H2 antag CPM Vitals Vitals Vital Signs Date Time Temp Pulse Resp B/P (MAP) Pulse Ox O2 Delivery O2 Flow Rate FiO2 10/19/16 10:23 72 167/100 10/19/16 08:00 Room Air 3.0 10/19/16 07:00 97.8 18 98 97.8 Physical Exam General: Alert, Oriented X3, No acute distress Heart: Regular rate, Normal S1, Normal S2 Lungs: Clear Abdomen: Normal bowel sounds, Soft, No tenderness Extremities: No edema Skin: No significant lesion Labs LABS Laboratory Tests Test 10/19/16 06:45 White Blood Count 10.1 x10^3/uL (4.0-11.0) Red Blood Count 5.85 x10^6/uL (4.30-5.70) Hemoglobin 16.3 g/dL (13.0-17.5) Hematocrit 48.4 % (39.0-53.0) Mean Corpuscular Volume 83 fL (79-100) Mean Corpuscular Hemoglobin 28 pg (25-35) Mean Corpuscular Hemoglobin Concent 34 g/dL (31-37) Red Cell Distribution Width 15.1 % (11.5-14.5) Platelet Count 237 x10^3/uL (140-400) Neutrophils (%) (Auto) 83 % (31-73) Lymphocytes (%) (Auto) 5 % (24-48) Monocytes (%) (Auto) 9 % (0-9) Eosinophils (%) (Auto) 2 % (0-3) Basophils (%) (Auto) 1 % (0-3) Neutrophils # (Auto) 8.4 x10^3uL (1.8-7.7) Lymphocytes # (Auto) 0.5 x10^3/uL (1.0-4.8) Monocytes # (Auto) 0.9 x10^3/uL (0.0-1.1) Eosinophils # (Auto) 0.2 x10^3/uL (0.0-0.7) Basophils # (Auto) 0.1 x10^3/uL (0.0-0.2) Sodium Level 137 mmol/L (136-145) Potassium Level 3.9 mmol/L (3.5-5.1) Chloride Level 100 mmol/L (98-107) Carbon Dioxide Level 26 mmol/L (21-32) Anion Gap 11 (6-14) Blood Urea Nitrogen 15 mg/dL (8-26) Creatinine 0.9 mg/dL (0.7-1.3) Estimated GFR (Cockcroft-Gault) 87.0 Glucose Level 138 mg/dL (70-99) Calcium Level 9.3 mg/dL (8.5-10.1) Review of Systems Review of Systems no cp, soa, abd pain, n,v.d Feels congested Assessment and Plan Assessmemt and Plan Problems Medical Problems: (1) Acute congestive heart failure Status: Acute (2) Acute respiratory failure Status: Acute (3) Metabolic acidosis Status: Acute (4) Respiratory acidosis Status: Acute Problems: Comment Review of Relevant I have reviewed the following items reese (where applicable) has been applied. Labs Laboratory Tests Test 10/18/16 05:25 10/19/16 06:45 White Blood Count 9.7 x10^3/uL (4.0-11.0) 10.1 x10^3/uL (4.0-11.0) Red Blood Count 5.51 x10^6/uL (4.30-5.70) 5.85 x10^6/uL (4.30-5.70) Hemoglobin 15.7 g/dL (13.0-17.5) 16.3 g/dL (13.0-17.5) Hematocrit 44.7 % (39.0-53.0) 48.4 % (39.0-53.0) Mean Corpuscular Volume 81 fL (79-100) 83 fL (79-100) Mean Corpuscular Hemoglobin 29 pg (25-35) 28 pg (25-35) Mean Corpuscular Hemoglobin Concent 35 g/dL (31-37) 34 g/dL (31-37) Red Cell Distribution Width 14.9 % (11.5-14.5) 15.1 % (11.5-14.5) Platelet Count 214 x10^3/uL (140-400) 237 x10^3/uL (140-400) Neutrophils (%) (Auto) 77 % (31-73) 83 % (31-73) Lymphocytes (%) (Auto) 8 % (24-48) 5 % (24-48) Monocytes (%) (Auto) 11 % (0-9) 9 % (0-9) Eosinophils (%) (Auto) 2 % (0-3) 2 % (0-3) Basophils (%) (Auto) 1 % (0-3) 1 % (0-3) Neutrophils # (Auto) 7.5 x10^3uL (1.8-7.7) 8.4 x10^3uL (1.8-7.7) Lymphocytes # (Auto) 0.8 x10^3/uL (1.0-4.8) 0.5 x10^3/uL (1.0-4.8) Monocytes # (Auto) 1.1 x10^3/uL (0.0-1.1) 0.9 x10^3/uL (0.0-1.1) Eosinophils # (Auto) 0.2 x10^3/uL (0.0-0.7) 0.2 x10^3/uL (0.0-0.7) Basophils # (Auto) 0.1 x10^3/uL (0.0-0.2) 0.1 x10^3/uL (0.0-0.2) Sodium Level 139 mmol/L (136-145) 137 mmol/L (136-145) Potassium Level 3.8 mmol/L (3.5-5.1) 3.9 mmol/L (3.5-5.1) Chloride Level 104 mmol/L (98-107) 100 mmol/L (98-107) Carbon Dioxide Level 28 mmol/L (21-32) 26 mmol/L (21-32) Anion Gap 7 (6-14) 11 (6-14) Blood Urea Nitrogen 25 mg/dL (8-26) 15 mg/dL (8-26) Creatinine 1.1 mg/dL (0.7-1.3) 0.9 mg/dL (0.7-1.3) Estimated GFR (Cockcroft-Gault) 69.0 87.0 Glucose Level 132 mg/dL (70-99) 138 mg/dL (70-99) Calcium Level 8.9 mg/dL (8.5-10.1) 9.3 mg/dL (8.5-10.1) Total Bilirubin 0.4 mg/dL (0.2-1.0) Direct Bilirubin 0.2 mg/dL (0.0-0.2) Aspartate Amino Transf (AST/SGOT) 25 U/L (15-37) Alanine Aminotransferase (ALT/SGPT) 27 U/L (16-63) Alkaline Phosphatase 102 U/L (46-116) Total Protein 6.8 g/dL (6.4-8.2) Albumin 3.3 g/dL (3.4-5.0) Laboratory Tests Test 10/19/16 06:45 White Blood Count 10.1 x10^3/uL (4.0-11.0) Red Blood Count 5.85 x10^6/uL (4.30-5.70) Hemoglobin 16.3 g/dL (13.0-17.5) Hematocrit 48.4 % (39.0-53.0) Mean Corpuscular Volume 83 fL (79-100) Mean Corpuscular Hemoglobin 28 pg (25-35) Mean Corpuscular Hemoglobin Concent 34 g/dL (31-37) Red Cell Distribution Width 15.1 % (11.5-14.5) Platelet Count 237 x10^3/uL (140-400) Neutrophils (%) (Auto) 83 % (31-73) Lymphocytes (%) (Auto) 5 % (24-48) Monocytes (%) (Auto) 9 % (0-9) Eosinophils (%) (Auto) 2 % (0-3) Basophils (%) (Auto) 1 % (0-3) Neutrophils # (Auto) 8.4 x10^3uL (1.8-7.7) Lymphocytes # (Auto) 0.5 x10^3/uL (1.0-4.8) Monocytes # (Auto) 0.9 x10^3/uL (0.0-1.1) Eosinophils # (Auto) 0.2 x10^3/uL (0.0-0.7) Basophils # (Auto) 0.1 x10^3/uL (0.0-0.2) Sodium Level 137 mmol/L (136-145) Potassium Level 3.9 mmol/L (3.5-5.1) Chloride Level 100 mmol/L (98-107) Carbon Dioxide Level 26 mmol/L (21-32) Anion Gap 11 (6-14) Blood Urea Nitrogen 15 mg/dL (8-26) Creatinine 0.9 mg/dL (0.7-1.3) Estimated GFR (Cockcroft-Gault) 87.0 Glucose Level 138 mg/dL (70-99) Calcium Level 9.3 mg/dL (8.5-10.1) Microbiology 10/13/16 Blood Culture - Final, Complete NO GROWTH AFTER 5 DAYS 10/14/16 Urine Culture - Final, Complete 10/14/16 Urine Culture Result 1 (MATTHEW) - Final, Complete Medications Current Medications Propofol 50 ml @ As Directed STK-MED ONCE IV ; Start 10/12/16 at 23:15; Stop at 23:16; Status DC Sodium Chloride 1,000 ml @ 1,000 mls/hr Q1H IV Last administered on 10/12/16 23:15; Start 10/12/16 at 23:45; Stop 10/13/16 at 00:44; Status DC Nitroglycerin/ Dextrose 250 ml @ 0 mls/hr CONT PRN IV SEE I/O RECORD Last administered on 10/12/16 23:56; Start 10/12/16 at 23:30; Stop 10/13/16 at 11:14 ; Status DC Propofol 100 ml @ 0 mls/hr CONT PRN IV SEE I/O RECORD Last administered on 10/14 03:28; Start 10/12/16 at 23:45; Stop 10/14/16 at 18:02; Status DC Propofol 50 ml @ 0 mls/hr 1X ONCE IV Last administered on 10/12/16 23:18; Start 10/12/16 at 23:45; Stop 10/12/16 at 23:46; Status DC Furosemide (Lasix) 80 mg 1X ONCE IVP Last administered on 10/12/16 22:48; Start 10/12/16 at 23:45; Stop 10/12/16 at 23:46; Status DC Rocuronium Ellamore (Zemuron) 50 mg 1X ONCE IV Last administered on 10/13/16 00:15; Start 10/13/16 at 00:15; Stop 10/13/16 at 00:16; Status DC Etomidate (Amidate) 20 mg 1X ONCE IV Last administered on 10/12/16 23:10; Start 10/13/16 at 00:30; Stop 10/13/16 at 00:31; Status DC Iohexol (Omnipaque 300 Mg/ml) 60 ml 1X ONCE IV Last administered on 10/13/16 01:03; Start 10/13/16 at 01:00; Stop 10/13/16 at 01:01; Status DC Info (Do NOT chart on this entry -- for MONITORING) 1 each PRN DAILY PRN MC SEE COMMENTS; Start 10/13/16 at 00:30; Stop 10/15/16 at 00:29; Status DC Ondansetron HCl (Zofran) 4 mg PRN Q8HRS PRN IV NAUSEA/VOMITING; Start 10/13/16 at 01:15; Stop 10/14/16 at 01:14; Status DC Sodium Chloride 1,000 ml @ 125 mls/hr Q8H IV Last administered on 10/13/16 17 :43; Start 10/13/16 at 01:09; Stop 10/14/16 at 01:08; Status DC Acetaminophen (Tylenol) 650 mg PRN Q4HRS PRN PO FEVER; Start 10/13/16 at 01:15 ; Stop 10/14/16 at 01:14; Status DC Levofloxacin/ Dextrose (Levaquin Per Pharmacy) 1 each PRN DAILY PRN MC SEE COMMENTS; Start 10/13/16 at 01:45 Levofloxacin/ Dextrose 100 ml @ 100 mls/hr 1X ONCE IV Last administered on 02:29; Start 10/13/16 at 02:00; Stop 10/13/16 at 02:59; Status DC Rocuronium Ell[place]ore (Zemuron) 50 mg 1X ONCE IV Last administered on 10/12/16 23:10; Start 10/13/16 at 02:15; Stop 10/13/16 at 02:26; Status DC Levofloxacin/ Dextrose 100 ml @ 100 mls/hr Q24H IV Last administered on 22:45; Start 10/13/16 at 23:00; Stop 10/15/16 at 15:34; Status DC Sodium Chloride 500 ml @ 500 mls/hr 1X ONCE IV Last administered on 01:13; Start 10/13/16 at 03:30; Stop 10/13/16 at 04:29; Status DC Furosemide (Lasix) 40 mg DAILY IVP Last administered on 10/19/16 09:17; Start 10/13/16 at 11:15 Metoprolol Tartrate (Lopressor) 5 mg PRN Q6HRS PRN IVP systolic >150 Last administered on 10/15/16 23:39; Start 10/14/16 at 09:45; Stop 10/16/16 at 13:26 ; Status DC Hydralazine HCl (Apresoline) 10 mg PRN Q4HRS PRN IVP ELEVATED BP, SEE COMMENTS Last administered on 10/19/16 04:07; Start 10/14/16 at 09:45 Atorvastatin Calcium (Lipitor) 40 mg QHS PO Last administered on 10/18/16 21: 44; Start 10/14/16 at 21:00 Lisinopril (Prinivil) 10 mg DAILY PO Last administered on 10/14/16 13:43; Start 10/14/16 at 12:45; Stop 10/15/16 at 10:33; Status DC Aspirin (Ecotrin) 81 mg DAILYWBKFT PO Last administered on 10/17/16 08:02; Start 10/14/16 at 12:45; Stop 10/18/16 at 12:18; Status DC Metoprolol Succinate (Toprol Xl) 25 mg DAILY PO Last administered on 10/16/16 08:39; Start 10/14/16 at 12:45; Stop 10/16/16 at 11:30; Status DC Potassium Chloride (Klor-Con) 40 meq 1X ONCE PO Last administered on 13:44; Start 10/14/16 at 13:00; Stop 10/14/16 at 13:01; Status DC Potassium Chloride (Klor-Con) 20 meq DAILYWBKFT PO Last administered on 09:15; Start 10/15/16 at 08:00 Potassium Chloride (Klor-Con) 40 meq 1X ONCE PO Last administered on 08:50; Start 10/15/16 at 08:15; Stop 10/15/16 at 08:16; Status DC Lisinopril (Prinivil) 40 mg DAILY PO Last administered on 10/18/16 07:38; Start 10/16/16 at 09:00; Stop 10/18/16 at 12:18; Status DC Amlodipine Besylate (Norvasc) 5 mg DAILY PO ; Start 10/15/16 at 13:00; Stop at 13:46; Status DC Albuterol Sulfate (Ventolin Neb Soln) 2.5 mg PRN Q6HRS PRN NEB SHORTNESS OF BREATH; Start 10/15/16 at 12:00 Acetaminophen (Tylenol) 650 mg PRN Q6HRS PRN PO FEVER Last administered on 10/19 09:27; Start 10/15/16 at 13:45 Ondansetron HCl (Zofran) 4 mg PRN Q6HRS PRN IV NAUSEA/VOMITING; Start 10/15/16 at 13:45 Morphine Sulfate 2 mg PRN Q2HR PRN IV PAIN Last administered on 10/18/16 17:11 ; Start 10/15/16 at 13:45 Tramadol HCl (Ultram) 50 mg PRN Q6HRS PRN PO PAIN Last administered on 21:44; Start 10/15/16 at 13:45 Hydralazine HCl (Apresoline) 10 mg PRN Q4HRS PRN IVP ELEVATED BP, SEE COMMENTS ; Start 10/15/16 at 13:45; Stop 10/15/16 at 15:35; Status DC Docusate Sodium (Colace) 100 mg PRN DAILY PRN PO CONSTIPATION; Start 10/15/16 at 13:45 Enoxaparin Sodium (Lovenox 40mg Syringe) 40 mg Q24H SQ Last administered on 14:38; Start 10/15/16 at 14:00; Stop 10/19/16 at 22:00 Guaifenesin (Mucinex) 600 mg BID PO Last administered on 10/19/16 09:16; Start 10/15/16 at 14:00 Levofloxacin (Levaquin) 500 mg QHS PO Last administered on 10/18/16 21:44; Start 10/15/16 at 21:00 Carvedilol (Coreg) 6.25 mg BIDWMEALS PO Last administered on 10/19/16 09:15; Start 10/16/16 at 17:00; Stop 10/19/16 at 10:12; Status DC Amlodipine Besylate (Norvasc) 10 mg DAILY PO Last administered on 10/19/16 09: 16; Start 10/16/16 at 11:40 Iohexol (Omnipaque 300 Mg/ml) 100 ml STK-MED ONCE .ROUTE ; Start 10/18/16 at 07: 36; Stop 10/18/16 at 07:37; Status DC Lidocaine HCl 20 ml STK-MED ONCE .ROUTE ; Start 10/18/16 at 07:43; Stop at 07:44; Status DC Heparin Sodium/ Sodium Chloride 1,000 ml @ As Directed STK-MED ONCE .ROUTE ; Start 10/18/16 at 07:43; Stop 10/18/16 at 07:44; Status DC Iohexol (Omnipaque 300 Mg/ml) 100 ml STK-MED ONCE .ROUTE ; Start 10/18/16 at 07: 44; Stop 10/18/16 at 07:45; Status DC Nitroglycerin (Nitroglycerin) 200 mcg STK-MED ONCE .ROUTE ; Start 10/18/16 at 07 :56; Stop 10/18/16 at 07:57; Status DC Verapamil HCl (Verapamil) 5 mg STK-MED ONCE .ROUTE ; Start 10/18/16 at 07:56; Stop 10/18/16 at 07:57; Status DC Midazolam HCl (Versed) 2 mg STK-MED ONCE .ROUTE ; Start 10/18/16 at 07:57; Stop 10/18/16 at 07:58; Status DC Heparin Sodium (Porcine) (Heparin Sodium) 10,000 unit STK-MED ONCE .ROUTE ; Start 10/18/16 at 07:57; Stop 10/18/16 at 07:58; Status DC Fentanyl Citrate (Fentanyl 2ml Vial) 100 mcg STK-MED ONCE .ROUTE ; Start at 07:57; Stop 10/18/16 at 07:58; Status DC Nitroglycerin (Nitroglycerin) 200 mcg 1X ONCE IART Last administered on 08:39; Start 10/18/16 at 08:30; Stop 10/18/16 at 08:31; Status DC Verapamil HCl (Verapamil) 2.5 mg 1X ONCE IART Last administered on 10/18/16 08:41; Start 10/18/16 at 08:30; Stop 10/18/16 at 08:31; Status DC Heparin Sodium (Porcine) (Heparin Sodium) 2,500 unit 1X ONCE IART Last administered on 10/18/16 08:43; Start 10/18/16 at 08:30; Stop 10/18/16 at 08:31 ; Status DC Heparin Sodium/ Sodium Chloride 1,000 unit 1X ONCE IART Last administered on 08:40; Start 10/18/16 at 08:30; Stop 10/18/16 at 08:31; Status DC Midazolam HCl (Versed) 2 mg 1X ONCE IV Last administered on 10/18/16 08:42; Start 10/18/16 at 08:30; Stop 10/18/16 at 08:31; Status DC Fentanyl Citrate (Fentanyl 2ml Vial) 100 mcg 1X ONCE IV Last administered on 08:42; Start 10/18/16 at 08:30; Stop 10/18/16 at 08:31; Status DC Iohexol (Omnipaque 300 Mg/ml) 100 ml 1X ONCE IART Last administered on 08:40; Start 10/18/16 at 08:30; Stop 10/18/16 at 08:31; Status DC Lidocaine HCl 20 ml 1X ONCE IJ Last administered on 10/18/16 08:41; Start at 08:30; Stop 10/18/16 at 08:31; Status DC Bivalirudin (Angiomax) 250 mg STK-MED ONCE IV ; Start 10/18/16 at 08:26; Stop at 08:27; Status DC Info (Do NOT chart on this entry -- for MONITORING) 1 each PRN DAILY PRN MC SEE COMMENTS; Start 10/18/16 at 08:30; Stop 10/20/16 at 08:29 Sodium Chloride 1,000 ml @ 60 mls/hr [id number] IV ; Start 10/18/16 at 09:00; Stop 10/19/16 at 10:10; Status DC Nitroglycerin (Nitrostat) 0.4 mg PRN Q5MIN PRN SL CHEST PAIN; Start 10/18/16 at 08:45 Vancomycin HCl 1.5 gm/Sodium Chloride 500 ml @ 250 mls/hr 1X ONCE IV ; Start 10/19/16 at 06:00; Stop 10/19/16 at 06:00; Status DC Zolpidem Tartrate (Ambien) 5 mg PRN QHS PRN PO INSOMNIA, MAY REPEAT IN 1HR; Start 10/18/16 at 12:15; Stop 10/18/16 at 16:00; Status DC Metoprolol Tartrate (Lopressor) 25 mg 1X ONCE PO ; Start 10/19/16 at 06:00; Stop 10/19/16 at 12:01; Status DC Aspirin (Ecotrin) 81 mg DAILYWBKFT PO Last administered on 10/19/16 09:15; Start 10/19/16 at 08:00 Lisinopril (Prinivil) 40 mg DAILY PO Last administered on 10/19/16 09:15; Start 10/18/16 at 17:00 Diphenhydramine HCl (Benadryl) 25 mg PRN Q6HRS PRN PO ITCHING Last administered on 10/18/16 21:44; Start 10/18/16 at 21:30 Zolpidem Tartrate (Ambien) 5 mg PRN QHS PRN PO INSOMNIA; Start 10/18/16 at 21: 30; Stop 10/19/16 at 12:01; Status DC Bivalirudin (Angiomax) 250 mg STK-MED ONCE IV ; Start 10/18/16 at 08:30; Stop at 09:02; Status DC Carvedilol (Coreg) 25 mg BIDWMEALS PO ; Start 10/19/16 at 17:00 Carvedilol (Coreg) 6.25 mg 1X ONCE PO Last administered on 10/19/16 10:23; Start 10/19/16 at 10:15; Stop 10/19/16 at 10:18; Status DC Cetirizine HCl (ZyrTEC) 10 mg DAILY PO Last administered on 10/19/16t 11:06; Start 10/19/16 at 11:30 Active Scripts Active Hydrocodone-Apap 5-325 (Hydrocodone Bit/Acetaminophen) 1 Each Tablet 1-2 Tab PO PRN Q6HRS PRN Lisinopril 10 Mg Tablet 1 Tab PO DAILY Vitals/I & O Vital Sign - Last 24 Hours 10/18/16 10/18/16 10/18/16 10/18/16 12:15 12:30 12:57 17:10 Pulse 74 84 84 B/P (MAP) 169/97 (121) 178/109 (132) 159/61 (93) 159/61 Pulse Ox 98 98 O2 Delivery Room Air Room Air 10/18/16 10/18/16 10/18/16 10/18/16 17:10 17:11 18:08 19:15 Pulse 84 Resp 20 B/P (MAP) 159/61 Pulse Ox 98 98 O2 Delivery Room Air Room Air Room Air O2 Flow Rate 3.0 3.0 3.0 10/18/16 10/18/16 10/19/16 10/19/16 19:27 22:47 03:58 04:07 Temp 98.4 97.9 97.8 98.4 97.9 97.8 Pulse 76 79 75 72 Resp 16 16 16 B/P (MAP) 140/86 (104) 172/108 (129) 189/118 (141) 189/118 Pulse Ox 96 97 96 O2 Delivery Room Air Room Air Room Air 10/19/16 10/19/16 10/19/16 10/19/16 07:00 08:00 09:15 09:15 Temp 97.8 97.8 Pulse 72 72 72 Resp 18 B/P (MAP) 167/100 (122) 167/100 167/100 Pulse Ox 98 O2 Delivery Room Air Room Air O2 Flow Rate 3.0 10/19/16 10/19/16 09:16 10:23 Pulse 72 72 B/P (MAP) 167/100 167/100 Intake and Output 10/18/16 10/18/16 10/19/16 15:00 23:00 07:00 Intake Total 240 ml Balance 240 ml DENAE VIGIL MD October 19, 2016 12:15
[2016-10-19 15:21] VITALS: BP 115/75
[2016-10-19] MEDS: diphenhydrAMINE HCL 25 MG CAPSULE PO PRN ×2 (15:48→20:49)
[2016-10-19] MEDS: ENOXAPARIN 40 MG/0.4 ML SYRINGE. SQ SCH (15:48)
[2016-10-19 19:05] VITALS: BP 119/80
[2016-10-19] MEDS: ATORVASTATIN CALCIUM 40 MG TABLET. PO SCH (20:48)
[2016-10-19] MEDS: traMADol 50 MG TABLET PO PRN (20:49)
[2016-10-19 23:40] VITALS: BP 127/79
[2016-10-20] VITALS (17 sets, daily range): BP systolic 76–166; BP diastolic 47–104
--- NOTE | 2016-10-20 04:09 | RESP ---
DATE OF SERVICE: 10/18/2016 SPIROMETRY ATTENDING PHYSICIAN: Dr. Klein. The patient's FVC was 3.63, which is 77% predicted and FEV1 2.46, which is 69% predicted; the FEV1/FVC ratio was reduced. There was no response to bronchodilators. IMPRESSION: 1. Mild obstructive airway disease. 2. No significant response to bronchodilators. MARÍA ELENA JACOBS MD DR: CHIKIS/mark JOB#: [id number] / [id number] NISH
[2016-10-20 07:30] LABS: HEP A IGM ABDY Negative (Negative)
--- NOTE | 2016-10-20 09:16 | PDOC2 ---
GI CONSULT Reason For Consult: Hep C HPI: HPI: 56 y/o male admitted 10/13/16 in resp distress, was intubated, found to have EF 25% w/ 3 vessel CAD. CABG was considered, but ultimately it was decided to proceed w/ PCI later today. Also being treated for pneumonia. Hep C antibody was high (1.5), hence GI consult. He recalls being told he had Hep C at some point in the past, no previous treatment. H/o IVDU, blood transfusion, and tattoos. H/o nocturnal reflux improved w/ dietary changes. Has noted some globus/dysphagia the past few days. Has noted some increased phlegm but also has coughed up food while eating. No n/v, abdominal pain, diarrhea, constipation, hematochezia, melena. The past few months have been stressful; his left and he has been depressed. For awhile had very poor appetite and lost some weight; appetite is better now. No previous EGD or colonoscopy. Is uninsured, has seen social work re: this. LFTs are WNL, has had no abdominal imaging. PMH: PMH: Hep C, CHF, CAD, HTN, right ankle fracture/surgery FH: Family History: No pertinent hx (denies GI cancers) Social History: Smoke: 2 packs per day ALCOHOL: occassional (averages 1 beer weekly) Drugs: Marijuana, Other (IVDU in the past) ROS: GEN: Denies fevers, chills, sweats HEENT: Denies blurred vision, sore throat CV: Denies chest pain RESP: +cough GI: Per HPI : Denies hematuria, dysuria ENDO: D+weight loss NEURO: Denies confusion, dizziness MSK: Denies weakness, joint pain/swelling SKIN: Denies jaundice, pruritus Vitals: Vitals: Vital Signs Date Time Temp Pulse Resp B/P (MAP) Pulse Ox O2 Delivery O2 Flow Rate FiO2 10/20/16 08:50 Room Air 3.0 10/20/16 07:42 97.7 64 18 140/87 (104) 98 97.7 Labs: Labs: Please see EMR. Allergies: Coded Allergies: Penicillins (Verified Allergy, Intermediate, 08/04/16) Medications: Current Medications Medications (Trade) Dose Ordered Sig/Conor Route PRN Reason Start Time Stop Time Status Last Admin Dose Admin Carvedilol (Coreg) 25 mg BIDWMEALS PO 10/19/16 17:00 10/19/16 15:47 Carvedilol (Coreg) 6.25 mg 1X ONCE PO 10/19/16 10:15 10/19/16 10:18 DC 10/19/16 10:23 Cetirizine HCl (ZyrTEC) 10 mg DAILY PO 10/19/16 11:30 10/19/16 11:06 Imaging: Imaging: Chest CTA 10/18/16 IMPRESSION: Substantial improvement in the appearance of the chest. No evidence of pulmonary edema on today's exam. Small nonsolid triangular parenchymal opacity in the left lower lobe may represent a focus of residual 0atelectasis or resolving pneumonia. No appreciable calcification of the thoracic aorta. Carotid Doppler Study Impression: 1. No hemodynamically significant internal carotid artery stenosis identified. LE US Impression: 1. Left lesser saphenous vein demonstrate superficial venous thrombosis. 2. Bilateral greater saphenous veins and the right lesser saphenous vein are patent with diameters as above. Coronary Arteriogram Conclusion 1. Severe three-vessel coronary artery disease 2. Ischemic cardiomyopathy with LVEF 25-30% on recent 2-D echo CXR 10/15/16 IMPRESSION: Minimal interval increase in left lower lobe interstitial opacity. This may be due to atelectasis or interstitial infiltrate. CT Angio Chest 10/13/16 IMPRESSION: 1. No pulmonary artery embolus. 2. Consolidated opacities with air bronchograms at the lower lobes greater on the right. This may be multilobar pneumonia. There is layering fluid within the dependent distal trachea and central bronchi which could be mucous or could be sequela of aspiration. 3. Bronchial wall thickening likely bronchitis. 4. Pulmonary edema. Small pleural effusions. PE: GEN: NAD HEENT: Atraumatic, +hoarse LUNGS: clear anteriorly HEART: S1S2 ABD: NABS, S/ND/NT EXTREMITY: No edema SKIN: No rashes, no jaundice NEURO/PSYCH: A & O 3 A/P: A/P: CHF, CAD -PCI planned for today Resp failure, pneumonia Hep C -known diagnosis for a few years, no previous treatment -h/o blood transfusions, tattoos, and IVDU -LFTs and plt WNL H/o GERD Globus/dysphagia -new onset, has coughed up food a few times, also describes increased phelgm CRC screen Weight loss -over the past few months, attributes to depression/decreased appetite after left -- Plans for PCI today. Discussed Hep C treatment, need for health insurance. Will check abd US. (PCR/genotype are restricted tests here.) Will add PPI considering GERD history. Monitor globus/dysphagia. ?drainage, also was intubated this admission Needs outpt screening colonoscopy, would probably benefit from EGD at that time as well. CHI TUCKER Oct 20, 2016 09:16
--- NOTE | 2016-10-20 09:48 | PDOC ---
PROGRESS NOTES Chief Complaint Chief Complaint ACUTE hypoxic resp failure with CHF acute systolic CHF with EF 25% HTN urgency h/o Hep C Noncompliance tobaccoism hypokalemia possible COPD with possible CAP History of Present Illness History of Present Illness Out having CT to check viability Then the second part of his staged PCI today No acute issues no calls overnight [employer] [place] PLAN: Await from tests/PCI Follow cards recs Vitals Vitals Vital Signs Date Time Temp Pulse Resp B/P (MAP) Pulse Ox O2 Delivery O2 Flow Rate FiO2 10/20/16 08:50 Room Air 3.0 10/20/16 07:42 97.7 64 18 140/87 (104) 98 97.7 Physical Exam General: Alert, Oriented X3, No acute distress Heart: Regular rate, Normal S1, Normal S2 Lungs: Clear Abdomen: Normal bowel sounds, Soft, No tenderness Extremities: No edema Skin: No significant lesion Review of Systems Review of Systems not in room Assessment and Plan Assessmemt and Plan Problems Medical Problems: (1) Acute congestive heart failure Status: Acute (2) Acute respiratory failure Status: Acute (3) Metabolic acidosis Status: Acute (4) Respiratory acidosis Status: Acute Problems: Comment Review of Relevant I have reviewed the following items reese (where applicable) has been applied. Labs Laboratory Tests Test 10/19/16 06:45 White Blood Count 10.1 x10^3/uL (4.0-11.0) Red Blood Count 5.85 x10^6/uL (4.30-5.70) Hemoglobin 16.3 g/dL (13.0-17.5) Hematocrit 48.4 % (39.0-53.0) Mean Corpuscular Volume 83 fL (79-100) Mean Corpuscular Hemoglobin 28 pg (25-35) Mean Corpuscular Hemoglobin Concent 34 g/dL (31-37) Red Cell Distribution Width 15.1 % (11.5-14.5) Platelet Count 237 x10^3/uL (140-400) Neutrophils (%) (Auto) 83 % (31-73) Lymphocytes (%) (Auto) 5 % (24-48) Monocytes (%) (Auto) 9 % (0-9) Eosinophils (%) (Auto) 2 % (0-3) Basophils (%) (Auto) 1 % (0-3) Neutrophils # (Auto) 8.4 x10^3uL (1.8-7.7) Lymphocytes # (Auto) 0.5 x10^3/uL (1.0-4.8) Monocytes # (Auto) 0.9 x10^3/uL (0.0-1.1) Eosinophils # (Auto) 0.2 x10^3/uL (0.0-0.7) Basophils # (Auto) 0.1 x10^3/uL (0.0-0.2) Sodium Level 137 mmol/L (136-145) Potassium Level 3.9 mmol/L (3.5-5.1) Chloride Level 100 mmol/L (98-107) Carbon Dioxide Level 26 mmol/L (21-32) Anion Gap 11 (6-14) Blood Urea Nitrogen 15 mg/dL (8-26) Creatinine 0.9 mg/dL (0.7-1.3) Estimated GFR (Cockcroft-Gault) 87.0 Glucose Level 138 mg/dL (70-99) Calcium Level 9.3 mg/dL (8.5-10.1) Hepatitis A IgM Antibody Negative (Negative) Hepatitis B Surface Antigen Negative (Negative) Hepatitis B Core IgM Antibody Negative (Negative) Hepatitis C Antibody 1.5 s/co ratio (0.0-0.9) Microbiology 10/13/16 Blood Culture - Final, Complete NO GROWTH AFTER 5 DAYS 10/14/16 Urine Culture - Final, Complete 10/14/16 Urine Culture Result 1 (MATTHEW) - Final, Complete Medications Current Medications Propofol 50 ml @ As Directed STK-MED ONCE IV ; Start 10/12/16 at 23:15; Stop at 23:16; Status DC Sodium Chloride 1,000 ml @ 1,000 mls/hr Q1H IV Last administered on 10/12/16 23:15; Start 10/12/16 at 23:45; Stop 10/13/16 at 00:44; Status DC Nitroglycerin/ Dextrose 250 ml @ 0 mls/hr CONT PRN IV SEE I/O RECORD Last administered on 10/12/16 23:56; Start 10/12/16 at 23:30; Stop 10/13/16 at 11:14 ; Status DC Propofol 100 ml @ 0 mls/hr CONT PRN IV SEE I/O RECORD Last administered on 10/14 03:28; Start 10/12/16 at 23:45; Stop 10/14/16 at 18:02; Status DC Propofol 50 ml @ 0 mls/hr 1X ONCE IV Last administered on 10/12/16 23:18; Start 10/12/16 at 23:45; Stop 10/12/16 at 23:46; Status DC Furosemide (Lasix) 80 mg 1X ONCE IVP Last administered on 10/12/16 22:48; Start 10/12/16 at 23:45; Stop 10/12/16 at 23:46; Status DC Rocuronium [place] (Zemuron) 50 mg 1X ONCE IV Last administered on 10/13/16 00:15; Start 10/13/16 at 00:15; Stop 10/13/16 at 00:16; Status DC Etomidate (Amidate) 20 mg 1X ONCE IV Last administered on 10/12/16 23:10; Start 10/13/16 at 00:30; Stop 10/13/16 at 00:31; Status DC Iohexol (Omnipaque 300 Mg/ml) 60 ml 1X ONCE IV Last administered on 10/13/16 01:03; Start 10/13/16 at 01:00; Stop 10/13/16 at 01:01; Status DC Info (Do NOT chart on this entry -- for MONITORING) 1 each PRN DAILY PRN MC SEE COMMENTS; Start 10/13/16 at 00:30; Stop 10/15/16 at 00:29; Status DC Ondansetron HCl (Zofran) 4 mg PRN Q8HRS PRN IV NAUSEA/VOMITING; Start 10/13/16 at 01:15; Stop 10/14/16 at 01:14; Status DC Sodium Chloride 1,000 ml @ 125 mls/hr Q8H IV Last administered on 10/13/16 17 :43; Start 10/13/16 at 01:09; Stop 10/14/16 at 01:08; Status DC Acetaminophen (Tylenol) 650 mg PRN Q4HRS PRN PO FEVER; Start 10/13/16 at 01:15 ; Stop 10/14/16 at 01:14; Status DC Levofloxacin/ Dextrose (Levaquin Per Pharmacy) 1 each PRN DAILY PRN MC SEE COMMENTS; Start 10/13/16 at 01:45 Levofloxacin/ Dextrose 100 ml @ 100 mls/hr 1X ONCE IV Last administered on 02:29; Start 10/13/16 at 02:00; Stop 10/13/16 at 02:59; Status DC Rocuronium [place] (Zemuron) 50 mg 1X ONCE IV Last administered on 10/12/16 23:10; Start 10/13/16 at 02:15; Stop 10/13/16 at 02:26; Status DC Levofloxacin/ Dextrose 100 ml @ 100 mls/hr Q24H IV Last administered on 22:45; Start 10/13/16 at 23:00; Stop 10/15/16 at 15:34; Status DC Sodium Chloride 500 ml @ 500 mls/hr 1X ONCE IV Last administered on 01:13; Start 10/13/16 at 03:30; Stop 10/13/16 at 04:29; Status DC Furosemide (Lasix) 40 mg DAILY IVP Last administered on 10/19/16 09:17; Start 10/13/16 at 11:15 Metoprolol Tartrate (Lopressor) 5 mg PRN Q6HRS PRN IVP systolic >150 Last administered on 10/15/16 23:39; Start 10/14/16 at 09:45; Stop 10/16/16 at 13:26 ; Status DC Hydralazine HCl (Apresoline) 10 mg PRN Q4HRS PRN IVP ELEVATED BP, SEE COMMENTS Last administered on 10/19/16 04:07; Start 10/14/16 at 09:45 Atorvastatin Calcium (Lipitor) 40 mg QHS PO Last administered on 10/19/16 20: 48; Start 10/14/16 at 21:00 Lisinopril (Prinivil) 10 mg DAILY PO Last administered on 10/14/16 13:43; Start 10/14/16 at 12:45; Stop 10/15/16 at 10:33; Status DC Aspirin (Ecotrin) 81 mg DAILYWBKFT PO Last administered on 10/17/16 08:02; Start 10/14/16 at 12:45; Stop 10/18/16 at 12:18; Status DC Metoprolol Succinate (Toprol Xl) 25 mg DAILY PO Last administered on 10/16/16 08:39; Start 10/14/16 at 12:45; Stop 10/16/16 at 11:30; Status DC Potassium Chloride (Klor-Con) 40 meq 1X ONCE PO Last administered on 13:44; Start 10/14/16 at 13:00; Stop 10/14/16 at 13:01; Status DC Potassium Chloride (Klor-Con) 20 meq DAILYWBKFT PO Last administered on 09:15; Start 10/15/16 at 08:00 Potassium Chloride (Klor-Con) 40 meq 1X ONCE PO Last administered on 08:50; Start 10/15/16 at 08:15; Stop 10/15/16 at 08:16; Status DC Lisinopril (Prinivil) 40 mg DAILY PO Last administered on 10/18/16 07:38; Start 10/16/16 at 09:00; Stop 10/18/16 at 12:18; Status DC Amlodipine Besylate (Norvasc) 5 mg DAILY PO ; Start 10/15/16 at 13:00; Stop at 13:46; Status DC Albuterol Sulfate (Ventolin Neb Soln) 2.5 mg PRN Q6HRS PRN NEB SHORTNESS OF BREATH; Start 10/15/16 at 12:00 Acetaminophen (Tylenol) 650 mg PRN Q6HRS PRN PO FEVER Last administered on 10/19 09:27; Start 10/15/16 at 13:45 Ondansetron HCl (Zofran) 4 mg PRN Q6HRS PRN IV NAUSEA/VOMITING; Start 10/15/16 at 13:45 Morphine Sulfate 2 mg PRN Q2HR PRN IV PAIN Last administered on 10/18/16 17:11 ; Start 10/15/16 at 13:45 Tramadol HCl (Ultram) 50 mg PRN Q6HRS PRN PO PAIN Last administered on 20:49; Start 10/15/16 at 13:45 Hydralazine HCl (Apresoline) 10 mg PRN Q4HRS PRN IVP ELEVATED BP, SEE COMMENTS ; Start 10/15/16 at 13:45; Stop 10/15/16 at 15:35; Status DC Docusate Sodium (Colace) 100 mg PRN DAILY PRN PO CONSTIPATION; Start 10/15/16 at 13:45 Enoxaparin Sodium (Lovenox 40mg Syringe) 40 mg Q24H SQ Last administered on 15:48; Start 10/15/16 at 14:00; Stop 10/19/16 at 22:00; Status DC Guaifenesin (Mucinex) 600 mg BID PO Last administered on 10/19/16 20:48; Start 10/15/16 at 14:00 Levofloxacin (Levaquin) 500 mg QHS PO Last administered on 10/19/16 20:48; Start 10/15/16 at 21:00 Carvedilol (Coreg) 6.25 mg BIDWMEALS PO Last administered on 10/19/16 09:15; Start 10/16/16 at 17:00; Stop 10/19/16 at 10:12; Status DC Amlodipine Besylate (Norvasc) 10 mg DAILY PO Last administered on 10/19/16 09: 16; Start 10/16/16 at 11:40 Iohexol (Omnipaque 300 Mg/ml) 100 ml STK-MED ONCE .ROUTE ; Start 10/18/16 at 07: 36; Stop 10/18/16 at 07:37; Status DC Lidocaine HCl 20 ml STK-MED ONCE .ROUTE ; Start 10/18/16 at 07:43; Stop at 07:44; Status DC Heparin Sodium/ Sodium Chloride 1,000 ml @ As Directed STK-MED ONCE .ROUTE ; Start 10/18/16 at 07:43; Stop 10/18/16 at 07:44; Status DC Iohexol (Omnipaque 300 Mg/ml) 100 ml STK-MED ONCE .ROUTE ; Start 10/18/16 at 07: 44; Stop 10/18/16 at 07:45; Status DC Nitroglycerin (Nitroglycerin) 200 mcg STK-MED ONCE .ROUTE ; Start 10/18/16 at 07 :56; Stop 10/18/16 at 07:57; Status DC Verapamil HCl (Verapamil) 5 mg STK-MED ONCE .ROUTE ; Start 10/18/16 at 07:56; Stop 10/18/16 at 07:57; Status DC Midazolam HCl (Versed) 2 mg STK-MED ONCE .ROUTE ; Start 10/18/16 at 07:57; Stop 10/18/16 at 07:58; Status DC Heparin Sodium (Porcine) (Heparin Sodium) 10,000 unit STK-MED ONCE .ROUTE ; Start 10/18/16 at 07:57; Stop 10/18/16 at 07:58; Status DC Fentanyl Citrate (Fentanyl 2ml Vial) 100 mcg STK-MED ONCE .ROUTE ; Start at 07:57; Stop 10/18/16 at 07:58; Status DC Nitroglycerin (Nitroglycerin) 200 mcg 1X ONCE IART Last administered on 08:39; Start 10/18/16 at 08:30; Stop 10/18/16 at 08:31; Status DC Verapamil HCl (Verapamil) 2.5 mg 1X ONCE IART Last administered on 10/18/16 08:41; Start 10/18/16 at 08:30; Stop 10/18/16 at 08:31; Status DC Heparin Sodium (Porcine) (Heparin Sodium) 2,500 unit 1X ONCE IART Last administered on 10/18/16 08:43; Start 10/18/16 at 08:30; Stop 10/18/16 at 08:31 ; Status DC Heparin Sodium/ Sodium Chloride 1,000 unit 1X ONCE IART Last administered on 08:40; Start 10/18/16 at 08:30; Stop 10/18/16 at 08:31; Status DC Midazolam HCl (Versed) 2 mg 1X ONCE IV Last administered on 10/18/16 08:42; Start 10/18/16 at 08:30; Stop 10/18/16 at 08:31; Status DC Fentanyl Citrate (Fentanyl 2ml Vial) 100 mcg 1X ONCE IV Last administered on 08:42; Start 10/18/16 at 08:30; Stop 10/18/16 at 08:31; Status DC Iohexol (Omnipaque 300 Mg/ml) 100 ml 1X ONCE IART Last administered on 08:40; Start 10/18/16 at 08:30; Stop 10/18/16 at 08:31; Status DC Lidocaine HCl 20 ml 1X ONCE IJ Last administered on 10/18/16 08:41; Start at 08:30; Stop 10/18/16 at 08:31; Status DC Bivalirudin (Angiomax) 250 mg STK-MED ONCE IV ; Start 10/18/16 at 08:26; Stop at 08:27; Status DC Info (Do NOT chart on this entry -- for MONITORING) 1 each PRN DAILY PRN MC SEE COMMENTS; Start 10/18/16 at 08:30; Stop 10/20/16 at 08:29; Status DC Sodium Chloride 1,000 ml @ 60 mls/hr [id number] IV ; Start 10/18/16 at 09:00; Stop 10/19/16 at 10:10; Status DC Nitroglycerin (Nitrostat) 0.4 mg PRN Q5MIN PRN SL CHEST PAIN; Start 10/18/16 at 08:45 Vancomycin HCl 1.5 gm/Sodium Chloride 500 ml @ 250 mls/hr 1X ONCE IV ; Start 10/19/16 at 06:00; Stop 10/19/16 at 06:00; Status DC Zolpidem Tartrate (Ambien) 5 mg PRN QHS PRN PO INSOMNIA, MAY REPEAT IN 1HR; Start 10/18/16 at 12:15; Stop 10/18/16 at 16:00; Status DC Metoprolol Tartrate (Lopressor) 25 mg 1X ONCE PO ; Start 10/19/16 at 06:00; Stop 10/19/16 at 12:01; Status DC Aspirin (Ecotrin) 81 mg DAILYWBKFT PO Last administered on 10/19/16 09:15; Start 10/19/16 at 08:00 Lisinopril (Prinivil) 40 mg DAILY PO Last administered on 10/19/16 09:15; Start 10/18/16 at 17:00 Diphenhydramine HCl (Benadryl) 25 mg PRN Q6HRS PRN PO ITCHING Last administered on 10/19/16 20:49; Start 10/18/16 at 21:30 Zolpidem Tartrate (Ambien) 5 mg PRN QHS PRN PO INSOMNIA; Start 10/18/16 at 21: 30; Stop 10/19/16 at 12:01; Status DC Bivalirudin (Angiomax) 250 mg STK-MED ONCE IV ; Start 10/18/16 at 08:30; Stop at 09:02; Status DC Carvedilol (Coreg) 25 mg BIDWMEALS PO Last administered on 10/19/16 15:47; Start 10/19/16 at 17:00 Carvedilol (Coreg) 6.25 mg 1X ONCE PO Last administered on 10/19/16 10:23; Start 10/19/16 at 10:15; Stop 10/19/16 at 10:18; Status DC Cetirizine HCl (ZyrTEC) 10 mg DAILY PO Last administered on 10/19/16 11:06; Start 10/19/16 at 11:30 Pantoprazole Sodium (Protonix) 40 mg DAILYAC PO ; Start 10/20/16 at 11:30 Active Scripts Active Hydrocodone-Apap 5-325 (Hydrocodone Bit/Acetaminophen) 1 Each Tablet 1-2 Tab PO PRN Q6HRS PRN Lisinopril 10 Mg Tablet 1 Tab PO DAILY Vitals/I & O Vital Sign - Last 24 Hours 10/19/16 10/19/16 10/19/16 10/19/16 10:23 15:21 15:47 19:05 Temp 97.5 98.7 97.5 98.7 Pulse 72 63 63 64 Resp 18 18 B/P (MAP) 167/100 115/75 (88) 115/75 119/80 (93) Pulse Ox 99 97 O2 Delivery Room Air Room Air 10/19/16 10/19/16 10/20/16 10/20/16 20:30 23:40 02:52 07:42 Temp 98.9 98.2 97.7 98.9 98.2 97.7 Pulse 67 66 64 Resp 18 20 18 B/P (MAP) 127/79 (95) 133/87 (102) 140/87 (104) Pulse Ox 96 98 98 O2 Delivery Room Air Room Air Room Air Room Air O2 Flow Rate 3.0 10/20/16 08:50 O2 Delivery Room Air O2 Flow Rate 3.0 Intake and Output 10/19/16 10/19/16 10/20/16 15:00 23:00 07:00 Intake Total 1090 ml 300 ml Output Total 500 ml Balance 590 ml 300 ml TERMULO,DENAE Y MD Oct 20, 2016 09:48
[2016-10-20] MEDS: ASPIRIN ENTERIC COATED 81 MG TABLET.DR. PO SCH (10:32)
[2016-10-20] MEDS: CARVEDILOL 6.25 MG TABLET. PO SCH ×2 (10:33→18:25)
[2016-10-20] MEDS: CETIRIZINE HCL 10 MG TABLET. PO SCH (10:34)
[2016-10-20] MEDS: amLODIPine BESYLATE 10 MG TABLET PO SCH (10:34)
[2016-10-20] MEDS: LISINOPRIL 40 MG TABLET. PO SCH (10:35)
[2016-10-20] MEDS: POTASSIUM CHLORIDE 20 MEQ TABLET.ER. PO SCH (10:35)
[2016-10-20] MEDS: FUROSEMIDE 40 MG/4 ML VIAL. IVP SCH (10:36)
--- NOTE | 2016-10-20 11:17 | PDOC ---
PULMONARY PROGRESS NOTES Subjective pt with no complaints Vitals Vital Signs Date Time Temp Pulse Resp B/P (MAP) Pulse Ox O2 Delivery O2 Flow Rate FiO2 10/20/16 10:35 61 130/91 10/20/16 10:22 97.9 21 97 Room Air 97.9 10/20/16 08:50 3.0 ROS: No Nausea, No Chest Pain, No Abdominal Pain, No Increase Cough General: Alert Lungs: Clear Cardiovascular: S1, S2 Abdomen: Soft Neuro Exam: Alert Extremities: No Edema Skin: Warm, Dry Labs Laboratory Tests Test 10/19/16 06:45 White Blood Count 10.1 x10^3/uL (4.0-11.0) Red Blood Count 5.85 x10^6/uL (4.30-5.70) Hemoglobin 16.3 g/dL (13.0-17.5) Hematocrit 48.4 % (39.0-53.0) Mean Corpuscular Volume 83 fL (79-100) Mean Corpuscular Hemoglobin 28 pg (25-35) Mean Corpuscular Hemoglobin Concent 34 g/dL (31-37) Red Cell Distribution Width 15.1 % (11.5-14.5) Platelet Count 237 x10^3/uL (140-400) Neutrophils (%) (Auto) 83 % (31-73) Lymphocytes (%) (Auto) 5 % (24-48) Monocytes (%) (Auto) 9 % (0-9) Eosinophils (%) (Auto) 2 % (0-3) Basophils (%) (Auto) 1 % (0-3) Neutrophils # (Auto) 8.4 x10^3uL (1.8-7.7) Lymphocytes # (Auto) 0.5 x10^3/uL (1.0-4.8) Monocytes # (Auto) 0.9 x10^3/uL (0.0-1.1) Eosinophils # (Auto) 0.2 x10^3/uL (0.0-0.7) Basophils # (Auto) 0.1 x10^3/uL (0.0-0.2) Sodium Level 137 mmol/L (136-145) Potassium Level 3.9 mmol/L (3.5-5.1) Chloride Level 100 mmol/L (98-107) Carbon Dioxide Level 26 mmol/L (21-32) Anion Gap 11 (6-14) Blood Urea Nitrogen 15 mg/dL (8-26) Creatinine 0.9 mg/dL (0.7-1.3) Estimated GFR (Cockcroft-Gault) 87.0 Glucose Level 138 mg/dL (70-99) Calcium Level 9.3 mg/dL (8.5-10.1) Hepatitis A IgM Antibody Negative (Negative) Hepatitis B Surface Antigen Negative (Negative) Hepatitis B Core IgM Antibody Negative (Negative) Hepatitis C Antibody 1.5 s/co ratio (0.0-0.9) Medications Active Scripts Medications Dose Route/Sig Max Daily Dose Days Date Category Hydrocodone-Apap 5-325 (Hydrocodone Bit/Acetaminophen) 1 Each Tablet 1-2 Tab PO PRN Q6HRS PRN 08/04/16 Rx Lisinopril 10 Mg Tablet 1 Tab PO DAILY 08/04/16 Rx Impression . 1. Acute respiratory failure, multifactorial secondary to acute pulmonary edema and pneumonia. 2. Pneumonia. 3. Acute systolic heart failure. The patient had echocardiogram revealing an ejection fraction of 25%. 4. Metabolic acidosis related to increased work of breathing. 5. Tobacco dependence. 6. Hypertension. 7. Hepatitis. Plan . 1. s/p cath/ MV CAD 2. CVS consulted. The patient certainly would be a candidate for high risk CABG considering his low EF and chronic hepatitis C.. The patient has opted to proceed with PCI rather than CABG. 3. Control blood pressure. 4. Continue Levaquin. 5. Monitor chest x-ray, 6. The patient instructed on the importance of discontinuing tobacco use. 7. Spirometry done MARÍA ELENA JACOBS MD Oct 20, 2016 11:17
[2016-10-20] MEDS: PANTOPRAZOLE 40 MG TABLET.DR. PO SCH (12:51)
[2016-10-20] MEDS ORDERED: IV NORMAL SALINE 1000ML BAG 1,000 ML IV SCH (13:15)
[2016-10-20] MEDS ORDERED: LIDOCAINE 2% 20 ML VIAL. ONE (15:25)
[2016-10-20] MEDS ORDERED: IOHEXOL 300 MG/ML 100ML VIAL. ONE ×3 (15:26→16:50)
[2016-10-20] MEDS ORDERED: fentaNYL PF VIAL 100 MCG/2 ML VIAL ONE (15:35)
[2016-10-20] MEDS ORDERED: HEPARIN for IV BOLUS 10,000 UNIT/10 ML VIAL. ONE (15:35)
[2016-10-20] MEDS ORDERED: MIDAZOLAM HCL/PF 2 MG/2 ML VIAL. ONE (15:35)
[2016-10-20] MEDS ORDERED: TIROFIBAN 12.5MG -0.9% NS 250 ML IV ONE (15:35)
[2016-10-20] MEDS ORDERED: HEPARIN for IV BOLUS 10,000 UNIT/10 ML VIAL. IV ONE (16:20)
[2016-10-20] MEDS ORDERED: TIROFIBAN 12.5MG -0.9% NS 250 ML IV PRN (16:20)
[2016-10-20] MEDS ORDERED: IOHEXOL 300 MG/ML 100ML VIAL. IART ONE (16:30)
[2016-10-20] MEDS ORDERED: LIDOCAINE 2% 20 ML VIAL. IJ ONE (16:30)
[2016-10-20] MEDS ORDERED: MIDAZOLAM HCL/PF 2 MG/2 ML VIAL. IV ONE (16:30)
[2016-10-20] MEDS ORDERED: fentaNYL PF VIAL 100 MCG/2 ML VIAL IV ONE (16:30)
[2016-10-20] MEDS ORDERED: NITROGLYCERIN 200 MCG/2 ML SYRINGE FOR CATH/VASC LAB. ICAR ONE (16:30)
[2016-10-20] MEDS ORDERED: NITROGLYCERIN 200 MCG/2 ML SYRINGE FOR CATH/VASC LAB. ONE (16:45)
[2016-10-20] MEDS ORDERED: PRASUGREL 10 MG TABLET. ONE (16:45)
[2016-10-20] MEDS ORDERED: CONTRAST GIVEN MC PRN (16:45)
[2016-10-20] MEDS ORDERED: PRASUGREL 10 MG TABLET. PO ONE (17:00)
--- NOTE | 2016-10-20 17:10 | RAD ---
Indication:Hepatitis C Grayscale images of the abdomen were obtained. Comparison none Liver:No focal mass lesion is seen in the visualized liver. Gallbladder:There is a small amount of sludge seen in the gallbladder. No cholelithiasis is seen. The common bile duct diameter of approximately 3 mm is normal Spleen:At the upper limits of normal in size Pancreas:The head and body appear unremarkable. The complete tail of the pancreas was not seen. Kidneys:The kidneys appear unremarkable Abdominal aorta and IVC:As visualized normal. The most distal abdominal aorta was not seen Ancillary findings:None Impression:Mild sludge in the gallbladder. The most distal abdominal aorta was not seen. That portion of the abdominal aorta which was seen appeared normal
[2016-10-20] MEDS: diphenhydrAMINE HCL 25 MG CAPSULE PO PRN ×2 (18:25→22:23)
[2016-10-20] MEDS ORDERED: BENZOCAINE/MENTHOL LOZENGE. PO PRN (18:45)
[2016-10-20] MEDS: MORPHINE SULFATE 2 MG/ML DISP.SYRIN. IV PRN (20:14)
[2016-10-20] MEDS: traMADol 50 MG TABLET PO PRN (22:23)
[2016-10-20] MEDS: ATORVASTATIN CALCIUM 40 MG TABLET. PO SCH (22:24)
[2016-10-21] VITALS (9 sets, daily range): BP systolic 92–130; BP diastolic 59–82
[2016-10-21] MEDS: LISINOPRIL 40 MG TABLET. PO SCH (08:47)
[2016-10-21] MEDS: amLODIPine BESYLATE 10 MG TABLET PO SCH (08:47)
[2016-10-21] MEDS: PANTOPRAZOLE 40 MG TABLET.DR. PO SCH (08:47)
[2016-10-21] MEDS: ASPIRIN ENTERIC COATED 81 MG TABLET.DR. PO SCH (08:47)
--- NOTE | 2016-10-21 08:47 | RAD ---
APPROVED REPORT Imaging Protocol IMAGE PROTOCOL: Viability only Rest: Stress: Viability: Radiopharm.Thallium [id number] Img Date 10/19/2016 Img Time 16:00 Rest Admin Site:IV - Left ForearmAdministrator:RT Dariel (R)(N) Viability without Stress The patient was injected with 4mCi of Thallium 201 in the IV - Left Forearm by SOL Vieira at 0 10/19/2016, 1245 Date/Time. Delayed Images were acquired by SOL Vieira at 10/19/2016, 1600 Date/Time. 24 Hour Delayed Images were acquired by SOL Vieira at 10/20/2016, 16:02 Date/Time. Motion Correction: No LV Perfusion There is grossly normal viability in the entire LV except for the basal inferolateral segments, which appear to be mildly viable. Wall Motion Non-gated study. Conclusion 1. Grossly normal viability involving the entire myocardium except for the basal inferolateral segmen t, which appears to demonstrate prior infarct.
[2016-10-21] MEDS: CARVEDILOL 6.25 MG TABLET. PO SCH (08:48)
[2016-10-21] MEDS: FUROSEMIDE 40 MG/4 ML VIAL. IVP SCH (08:48)
[2016-10-21] MEDS: CETIRIZINE HCL 10 MG TABLET. PO SCH (08:48)
[2016-10-21] MEDS: POTASSIUM CHLORIDE 20 MEQ TABLET.ER. PO SCH (08:49)
--- NOTE | 2016-10-21 09:29 | PDOC ---
CARDIO Progress Notes Date and Time Date of Service 10/21/2016 Time of Evaluation 0928 Subjective Subjective: No Chest Pain, No shortness of breath, No Palpitations, No Dizziness, Other (extubated. Cough. Mild SOA) Vitals Vitals Vital Signs Date Time Temp Pulse Resp B/P (MAP) Pulse Ox O2 Delivery O2 Flow Rate FiO2 10/21/16 08:48 65 130/82 10/21/16 08:15 Room Air 10/21/16 07:00 97.7 16 98 97.7 10/20/16 19:20 3.0 Weight Weight [ ] Input and Output Intake and Output Intake and Output 10/21/16 07:00 Intake Total 980 ml Output Total 300 ml Balance 680 ml Intake Oral 980 ml Output Urine Total 300 ml # Voids 2 Laboratory Labs Laboratory Tests Test 10/20/16 16:35 Activated Clotting Time 215 sec (92-181) Microbiology Micro Microbiology 10/13/16 Blood Culture - Final, Complete NO GROWTH AFTER 5 DAYS 10/14/16 Urine Culture - Final, Complete 10/14/16 Urine Culture Result 1 (MATTHEW) - Final, Complete Physical Exam HEENT: Neck Supple W Full Motion Chest: Symmetric LUNGS: Clear to Auscultation Heart: S1S2, RRR, no murmurs, other (tele: no dysrhythmias) Abdomen: Soft N/T Extremities: 2+ Dorsalis Pedis, No Edema Neurology: alert, oriented, follow commands Assessment Assessment 1. Acute systolic heart failure compensated with medical management Echo shows depressed LV function with an EF of 25-30% 2. 3 v. CAD CTS consult obtain - declined due to high risk cath yesterday with stenting of 3 vessels - DAPT X 12 months has 6 weeks of Effient samples then convert to clopidogrel has 6 months of ASA samples 3. Malignant hypertension improving control 4. Acute respiratory failure multifactorial given PNA and acute systolic HF extubated 10/14 per pulm 5. Pneumonia IV antibiotics per IM 6. substance use UDS + marijuana 7. Hypokalemia replaced 8. Tobaccoism cessation discussed and encouraged cardiology agreeable with discharge when planned by other services f/u appt scheduled (pt reports ability to pay) KENDELL [employer] Oct 21, 2016 09:29
--- NOTE | 2016-10-21 10:25 | PDOC ---
Subjective: Subjective: More difficulty swallowing. [place] w/ solids, liquids, pills. "It took me an hour to drink my coffee." [place] in oropharynx. Chin tuck helps. Also hurts to swallow. Does cough but not while eating. Describes lots of phlegm and fullness in neck. Objective: Objective: Per RN - three stents placed yesterday, cleared by cardiology to go but having more dysphagia issues. Deb says coughed up pills yesterday. Vital Signs: Vital Signs Date Time Temp Pulse Resp B/P (MAP) Pulse Ox O2 Delivery O2 Flow Rate FiO2 10/21/16 08:48 65 130/82 10/21/16 08:15 Room Air 10/21/16 07:00 97.7 16 98 97.7 10/20/16 19:20 3.0 Labs: Laboratory Tests Test 10/20/16 16:35 Activated Clotting Time 215 sec Imaging: Abd US 10/20/16 Liver:No focal mass lesion is seen in the visualized liver. Gallbladder:There is a small amount of sludge seen in the gallbladder. No cholelithiasis is seen. The common bile duct diameter of approximately 3 mm is normal. Spleen:At the upper limits of normal in size. Pancreas:The head and body appear unremarkable. The complete tail of the pancreas was not seen. Kidneys:The kidneys appear unremarkable. Abdominal aorta and IVC:As visualized normal. The most distal abdominal aorta was not seen. Ancillary findings: None. Impression:Mild sludge in the gallbladder. The most distal abdominal aorta was not seen. That portion of the abdominal aorta which was seen appeared normal. PE: GEN: NAD LUNGS: clear HEART: S1S2 ABD: S/ND/NT NEURO/PSYCH: A & O 3, more somber today A/P: CHF, CAD s/p cardiac cath w/ intervention, resp failure, pneumonia Hep C -no previous treatment, uninsured -abd US as above H/o GERD -started PPI yesterday Globus/dysphagia - worse today -describes foods, liquids, pills caught in oropharynx -improved w/ chin tuck -also describes increased phlegm -- Will check barium swallow. D/w RN. Further Hep C treatment discussion as outpt along w/ EGD and colonoscopy. CHI TUCKER Oct 21, 2016 10:25
--- NOTE | 2016-10-21 11:22 | PDOC ---
PROGRESS NOTES Chief Complaint Chief Complaint ACUTE hypoxic resp failure with CHF RESOLVED acute systolic CHF with EF 25% HTN urgency resolved h/o Hep C Noncompliance tobaccoism hypokalemia, corrected possible COPD with possible CAP Dysphagia NSTEMI CAD s/p 3 stents (10/20/16) History of Present Illness History of Present Illness HAd 3 stents placed yesterday CLeared from pulmo and cards to go home BUt now complains of diffiuclty swallowing Though he ate 50 % of his solid tray PLAN: GI has ordered barium swallow - will await results Vitals Vitals Vital Signs Date Time Temp Pulse Resp B/P (MAP) Pulse Ox O2 Delivery O2 Flow Rate FiO2 10/21/16 08:48 65 130/82 10/21/16 08:15 Room Air 10/21/16 07:00 97.7 16 98 97.7 10/20/16 19:20 3.0 Physical Exam General: Alert, Oriented X3, No acute distress Heart: Regular rate, Normal S1, Normal S2 Lungs: Clear Abdomen: Normal bowel sounds, Soft, No tenderness Extremities: No clubbing, No edema Skin: No rashes, No significant lesion Labs LABS Laboratory Tests Test 10/20/16 16:35 Activated Clotting Time 215 sec (92-181) Review of Systems Review of Systems dysphagia, all else is neg Assessment and Plan Assessmemt and Plan Problems Medical Problems: (1) Acute congestive heart failure Status: Acute (2) Acute respiratory failure Status: Acute (3) Metabolic acidosis Status: Acute (4) Respiratory acidosis Status: Acute Problems: Comment Review of Relevant I have reviewed the following items reese (where applicable) has been applied. Labs Laboratory Tests Test 10/20/16 16:35 Activated Clotting Time 215 sec ([id number]) Laboratory Tests Test 10/20/16 16:35 Activated Clotting Time 215 sec ([id number]) Microbiology 10/13/16 Blood Culture - Final, Complete NO GROWTH AFTER 5 DAYS 10/14/16 Urine Culture - Final, Complete 10/14/16 Urine Culture Result 1 (MATTHEW) - Final, Complete Medications Current Medications Propofol 50 ml @ As Directed STK-MED ONCE IV ; Start 10/12/16 at 23:15; Stop at 23:16; Status DC Sodium Chloride 1,000 ml @ 1,000 mls/hr Q1H IV Last administered on 10/12/16t 23:15; Start 10/12/16 at 23:45; Stop 10/13/16 at 00:44; Status DC Nitroglycerin/ Dextrose 250 ml @ 0 mls/hr CONT PRN IV SEE I/O RECORD Last administered on 10/12/16 23:56; Start 10/12/16 at 23:30; Stop 10/13/16 at 11:14 ; Status DC Propofol 100 ml @ 0 mls/hr CONT PRN IV SEE I/O RECORD Last administered on 10/14 03:28; Start 10/12/16 at 23:45; Stop 10/14/16 at 18:02; Status DC Propofol 50 ml @ 0 mls/hr 1X ONCE IV Last administered on 10/12/16 23:18; Start 10/12/16 at 23:45; Stop 10/12/16 at 23:46; Status DC Furosemide (Lasix) 80 mg 1X ONCE IVP Last administered on 10/12/16 22:48; Start 10/12/16 at 23:45; Stop 10/12/16 at 23:46; Status DC Rocuronium [place] (Zemuron) 50 mg 1X ONCE IV Last administered on 10/13/16 00:15; Start 10/13/16 at 00:15; Stop 10/13/16 at 00:16; Status DC Etomidate (Amidate) 20 mg 1X ONCE IV Last administered on 10/12/16 23:10; Start 10/13/16 at 00:30; Stop 10/13/16 at 00:31; Status DC Iohexol (Omnipaque 300 Mg/ml) 60 ml 1X ONCE IV Last administered on 10/13/16 01:03; Start 10/13/16 at 01:00; Stop 10/13/16 at 01:01; Status DC Info (Do NOT chart on this entry -- for MONITORING) 1 each PRN DAILY PRN MC SEE COMMENTS; Start 10/13/16 at 00:30; Stop 10/15/16 at 00:29; Status DC Ondansetron HCl (Zofran) 4 mg PRN Q8HRS PRN IV NAUSEA/VOMITING; Start 10/13/16 at 01:15; Stop 10/14/16 at 01:14; Status DC Sodium Chloride 1,000 ml @ 125 mls/hr Q8H IV Last administered on 10/13/16 17 :43; Start 10/13/16 at 01:09; Stop 10/14/16 at 01:08; Status DC Acetaminophen (Tylenol) 650 mg PRN Q4HRS PRN PO FEVER; Start 10/13/16 at 01:15 ; Stop 10/14/16 at 01:14; Status DC Levofloxacin/ Dextrose (Levaquin Per Pharmacy) 1 each PRN DAILY PRN MC SEE COMMENTS; Start 10/13/16 at 01:45 Levofloxacin/ Dextrose 100 ml @ 100 mls/hr 1X ONCE IV Last administered on 02:29; Start 10/13/16 at 02:00; Stop 10/13/16 at 02:59; Status DC Rocuronium [place] (Zemuron) 50 mg 1X ONCE IV Last administered on 10/12/16 23:10; Start 10/13/16 at 02:15; Stop 10/13/16 at 02:26; Status DC Levofloxacin/ Dextrose 100 ml @ 100 mls/hr Q24H IV Last administered on 22:45; Start 10/13/16 at 23:00; Stop 10/15/16 at 15:34; Status DC Sodium Chloride 500 ml @ 500 mls/hr 1X ONCE IV Last administered on 01:13; Start 10/13/16 at 03:30; Stop 10/13/16 at 04:29; Status DC Furosemide (Lasix) 40 mg DAILY IVP Last administered on 10/21/16 08:48; Start 10/13/16 at 11:15; Stop 10/21/16 at 09:20; Status DC Metoprolol Tartrate (Lopressor) 5 mg PRN Q6HRS PRN IVP systolic >150 Last administered on 10/15/16 23:39; Start 10/14/16 at 09:45; Stop 10/16/16 at 13:26 ; Status DC Hydralazine HCl (Apresoline) 10 mg PRN Q4HRS PRN IVP ELEVATED BP, SEE COMMENTS Last administered on 10/19/16 04:07; Start 10/14/16 at 09:45 Atorvastatin Calcium (Lipitor) 40 mg QHS PO Last administered on 10/20/16 22:24 ; Start 10/14/16 at 21:00 Lisinopril (Prinivil) 10 mg DAILY PO Last administered on 10/14/16 13:43; Start 10/14/16 at 12:45; Stop 10/15/16 at 10:33; Status DC Aspirin (Ecotrin) 81 mg DAILYWBKFT PO Last administered on 10/17/16 08:02; Start 10/14/16 at 12:45; Stop 10/18/16 at 12:18; Status DC Metoprolol Succinate (Toprol Xl) 25 mg DAILY PO Last administered on 10/16/16 08:39; Start 10/14/16 at 12:45; Stop 10/16/16 at 11:30; Status DC Potassium Chloride (Klor-Con) 40 meq 1X ONCE PO Last administered on 13:44; Start 10/14/16 at 13:00; Stop 10/14/16 at 13:01; Status DC Potassium Chloride (Klor-Con) 20 meq DAILYWBKFT PO Last administered on 08:49; Start 10/15/16 at 08:00 Potassium Chloride (Klor-Con) 40 meq 1X ONCE PO Last administered on 08:50; Start 10/15/16 at 08:15; Stop 10/15/16 at 08:16; Status DC Lisinopril (Prinivil) 40 mg DAILY PO Last administered on 10/18/16 07:38; Start 10/16/16 at 09:00; Stop 10/18/16 at 12:18; Status DC Amlodipine Besylate (Norvasc) 5 mg DAILY PO ; Start 10/15/16 at 13:00; Stop at 13:46; Status DC Albuterol Sulfate (Ventolin Neb Soln) 2.5 mg PRN Q6HRS PRN NEB SHORTNESS OF BREATH; Start 10/15/16 at 12:00 Acetaminophen (Tylenol) 650 mg PRN Q6HRS PRN PO FEVER Last administered on 10/19 09:27; Start 10/15/16 at 13:45 Ondansetron HCl (Zofran) 4 mg PRN Q6HRS PRN IV NAUSEA/VOMITING; Start 10/15/16 at 13:45 Morphine Sulfate 2 mg PRN Q2HR PRN IV PAIN Last administered on 10/20/16 20:14 ; Start 10/15/16 at 13:45 Tramadol HCl (Ultram) 50 mg PRN Q6HRS PRN PO PAIN Last administered on 22:23; Start 10/15/16 at 13:45 Hydralazine HCl (Apresoline) 10 mg PRN Q4HRS PRN IVP ELEVATED BP, SEE COMMENTS ; Start 10/15/16 at 13:45; Stop 10/15/16 at 15:35; Status DC Docusate Sodium (Colace) 100 mg PRN DAILY PRN PO CONSTIPATION; Start 10/15/16 at 13:45 Enoxaparin Sodium (Lovenox 40mg Syringe) 40 mg Q24H SQ Last administered on 15:48; Start 10/15/16 at 14:00; Stop 10/19/16 at 22:00; Status DC Guaifenesin (Mucinex) 600 mg BID PO Last administered on 10/21/16 08:48; Start 10/15/16 at 14:00 Levofloxacin (Levaquin) 500 mg QHS PO Last administered on 10/20/16 22:23; Start 10/15/16 at 21:00 Carvedilol (Coreg) 6.25 mg BIDWMEALS PO Last administered on 10/19/16 09:15; Start 10/16/16 at 17:00; Stop 10/19/16 at 10:12; Status DC Amlodipine Besylate (Norvasc) 10 mg DAILY PO Last administered on 10/21/16 08: 47; Start 10/16/16 at 11:40 Iohexol (Omnipaque 300 Mg/ml) 100 ml STK-MED ONCE .ROUTE ; Start 10/18/16 at 07: 36; Stop 10/18/16 at 07:37; Status DC Lidocaine HCl 20 ml STK-MED ONCE .ROUTE ; Start 10/18/16 at 07:43; Stop at 07:44; Status DC Heparin Sodium/ Sodium Chloride 1,000 ml @ As Directed STK-MED ONCE .ROUTE ; Start 10/18/16 at 07:43; Stop 10/18/16 at 07:44; Status DC Iohexol (Omnipaque 300 Mg/ml) 100 ml STK-MED ONCE .ROUTE ; Start 10/18/16 at 07: 44; Stop 10/18/16 at 07:45; Status DC Nitroglycerin (Nitroglycerin) 200 mcg STK-MED ONCE .ROUTE ; Start 10/18/16 at 07 :56; Stop 10/18/16 at 07:57; Status DC Verapamil HCl (Verapamil) 5 mg STK-MED ONCE .ROUTE ; Start 10/18/16 at 07:56; Stop 10/18/16 at 07:57; Status DC Midazolam HCl (Versed) 2 mg STK-MED ONCE .ROUTE ; Start 10/18/16 at 07:57; Stop 10/18/16 at 07:58; Status DC Heparin Sodium (Porcine) (Heparin Sodium) 10,000 unit STK-MED ONCE .ROUTE ; Start 10/18/16 at 07:57; Stop 10/18/16 at 07:58; Status DC Fentanyl Citrate (Fentanyl 2ml Vial) 100 mcg STK-MED ONCE .ROUTE ; Start at 07:57; Stop 10/18/16 at 07:58; Status DC Nitroglycerin (Nitroglycerin) 200 mcg 1X ONCE IART Last administered on 08:39; Start 10/18/16 at 08:30; Stop 10/18/16 at 08:31; Status DC Verapamil HCl (Verapamil) 2.5 mg 1X ONCE IART Last administered on 10/18/16 08:41; Start 10/18/16 at 08:30; Stop 10/18/16 at 08:31; Status DC Heparin Sodium (Porcine) (Heparin Sodium) 2,500 unit 1X ONCE IART Last administered on 10/18/16 08:43; Start 10/18/16 at 08:30; Stop 10/18/16 at 08:31 ; Status DC Heparin Sodium/ Sodium Chloride 1,000 unit 1X ONCE IART Last administered on 08:40; Start 10/18/16 at 08:30; Stop 10/18/16 at 08:31; Status DC Midazolam HCl (Versed) 2 mg 1X ONCE IV Last administered on 10/18/16 08:42; Start 10/18/16 at 08:30; Stop 10/18/16 at 08:31; Status DC Fentanyl Citrate (Fentanyl 2ml Vial) 100 mcg 1X ONCE IV Last administered on 08:42; Start 10/18/16 at 08:30; Stop 10/18/16 at 08:31; Status DC Iohexol (Omnipaque 300 Mg/ml) 100 ml 1X ONCE IART Last administered on 08:40; Start 10/18/16 at 08:30; Stop 10/18/16 at 08:31; Status DC Lidocaine HCl 20 ml 1X ONCE IJ Last administered on 10/18/16 08:41; Start at 08:30; Stop 10/18/16 at 08:31; Status DC Bivalirudin (Angiomax) 250 mg STK-MED ONCE IV ; Start 10/18/16 at 08:26; Stop at 08:27; Status DC Info (Do NOT chart on this entry -- for MONITORING) 1 each PRN DAILY PRN MC SEE COMMENTS; Start 10/18/16 at 08:30; Stop 10/20/16 at 08:29; Status DC Sodium Chloride 1,000 ml @ 60 mls/hr [id number] IV ; Start 10/18/16 at 09:00; Stop 10/19/16 at 10:10; Status DC Nitroglycerin (Nitrostat) 0.4 mg PRN Q5MIN PRN SL CHEST PAIN; Start 10/18/16 at 08:45 Vancomycin HCl 1.5 gm/Sodium Chloride 500 ml @ 250 mls/hr 1X ONCE IV ; Start 10/19/16 at 06:00; Stop 10/19/16 at 06:00; Status DC Zolpidem Tartrate (Ambien) 5 mg PRN QHS PRN PO INSOMNIA, MAY REPEAT IN 1HR; Start 10/18/16 at 12:15; Stop 10/18/16 at 16:00; Status DC Metoprolol Tartrate (Lopressor) 25 mg 1X ONCE PO ; Start 10/19/16 at 06:00; Stop 10/19/16 at 12:01; Status DC Aspirin (Ecotrin) 81 mg DAILYWBKFT PO Last administered on 10/21/16 08:47; Start 10/19/16 at 08:00 Lisinopril (Prinivil) 40 mg DAILY PO Last administered on 10/21/16 08:47; Start 10/18/16 at 17:00 Diphenhydramine HCl (Benadryl) 25 mg PRN Q6HRS PRN PO ITCHING Last administered on 10/20/16 22:23; Start 10/18/16 at 21:30 Zolpidem Tartrate (Ambien) 5 mg PRN QHS PRN PO INSOMNIA; Start 10/18/16 at 21: 30; Stop 10/19/16 at 12:01; Status DC Bivalirudin (Angiomax) 250 mg STK-MED ONCE IV ; Start 10/18/16 at 08:30; Stop at 09:02; Status DC Carvedilol (Coreg) 25 mg BIDWMEALS PO Last administered on 10/21/16 08:48; Start 10/19/16 at 17:00 Carvedilol (Coreg) 6.25 mg 1X ONCE PO Last administered on 10/19/16 10:23; Start 10/19/16 at 10:15; Stop 10/19/16 at 10:18; Status DC Cetirizine HCl (ZyrTEC) 10 mg DAILY PO Last administered on 10/21/16 08:48; Start 10/19/16 at 11:30 Pantoprazole Sodium (Protonix) 40 mg DAILYAC PO Last administered on 10/21/16 08:47; Start 10/20/16 at 11:30 Sodium Chloride 1,000 ml @ 75 mls/hr [id number] IV Last administered on 10/20/16 13:21; Start 10/20/16 at 13:15; Stop 10/21/16 at 09:20; Status DC Lidocaine HCl 20 ml STK-MED ONCE .ROUTE ; Start 10/20/16 at 15:25; Stop 10/20/16 at 15:26; Status DC Heparin Sodium/ Sodium Chloride 1,000 ml @ As Directed STK-MED ONCE .ROUTE ; Start 10/20/16 at 15:25; Stop 10/20/16 at 15:26; Status DC Iohexol (Omnipaque 300 Mg/ml) 100 ml STK-MED ONCE .ROUTE ; Start 10/20/16 at 15: 26; Stop 10/20/16 at 15:27; Status DC Heparin Sodium/ Sodium Chloride 500 ml @ As Directed STK-MED ONCE .ROUTE ; Start 10/20/16 at 15:32; Stop 10/20/16 at 15:33; Status DC Tirofiban/Sodium Chloride 250 ml @ As Directed STK-MED ONCE IV ; Start 10/20/16 at 15:35; Stop 10/20/16 at 15:36; Status DC Midazolam HCl (Versed) 2 mg STK-MED ONCE .ROUTE ; Start 10/20/16 at 15:35; Stop 10/20/16 at 15:36; Status DC Fentanyl Citrate (Fentanyl 2ml Vial) 100 mcg STK-MED ONCE .ROUTE ; Start at 15:35; Stop 10/20/16 at 15:36; Status DC Heparin Sodium (Porcine) (Heparin Sodium) 10,000 unit STK-MED ONCE .ROUTE ; Start 10/20/16 at 15:35; Stop 10/20/16 at 15:36; Status DC Iohexol (Omnipaque 300 Mg/ml) 100 ml STK-MED ONCE .ROUTE ; Start 10/20/16 at 16: 05; Stop 10/20/16 at 16:06; Status DC Nitroglycerin (Nitroglycerin) 200 mcg 1X ONCE ICAR Last administered on 17:42; Start 10/20/16 at 16:30; Stop 10/20/16 at 16:41; Status DC Heparin Sodium/ Sodium Chloride 1,000 unit 1X ONCE IART Last administered on 17:40; Start 10/20/16 at 16:30; Stop 10/20/16 at 16:41; Status DC Heparin Sodium/ Sodium Chloride 1,000 unit 1X ONCE IART Last administered on 17:40; Start 10/20/16 at 16:30; Stop 10/20/16 at 16:41; Status DC Midazolam HCl (Versed) 2 mg 1X ONCE IV Last administered on 10/20/16 17:41; Start 10/20/16 at 16:30; Stop 10/20/16 at 16:41; Status DC Fentanyl Citrate (Fentanyl 2ml Vial) 100 mcg 1X ONCE IV Last administered on 17:41; Start 10/20/16 at 16:30; Stop 10/20/16 at 16:41; Status DC Iohexol (Omnipaque 300 Mg/ml) 100 ml 1X ONCE IART Last administered on 17:42; Start 10/20/16 at 16:30; Stop 10/20/16 at 16:41; Status DC Heparin Sodium (Porcine) (Heparin Sodium) 6,000 unit 1X ONCE IV Last administered on 10/20/16 17:45; Start 10/20/16 at 16:20; Stop 10/20/16 at 16:41; Status DC Lidocaine HCl 20 ml 1X ONCE IJ Last administered on 10/20/16 17:40; Start 10/20 at 16:30; Stop 10/20/16 at 16:41; Status DC Tirofiban/Sodium Chloride 250 ml @ 0 mls/hr CONT PRN IV PER PROTOCOL Last administered on 10/20/16 17:43; Start 10/20/16 at 16:20; Stop 10/21/16 at 10:19; Status DC Info (Do NOT chart on this entry -- for MONITORING) 1 each PRN DAILY PRN MC SEE COMMENTS; Start 10/20/16 at 16:45; Stop 10/22/16 at 16:44 Nitroglycerin (Nitroglycerin) 200 mcg STK-MED ONCE .ROUTE ; Start 10/20/16 at 16: 45; Stop 10/20/16 at 16:46; Status DC Prasugrel (Effient) 10 mg STK-MED ONCE .ROUTE ; Start 10/20/16 at 16:45; Stop 10/20/16 at 16:46; Status DC Prasugrel (Effient) 60 mg 1X ONCE PO Last administered on 10/20/16 17:42; Start 10/20/16 at 17:00; Stop 10/20/16 at 17:01; Status DC Iohexol (Omnipaque 300 Mg/ml) 100 ml STK-MED ONCE .ROUTE ; Start 10/20/16 at 16: 50; Stop 10/20/16 at 16:51; Status DC Throat Lozenges (Cepacol Sore Throat Lozenge) 1 bridgette PRN Q4HRS PRN PO SORE THROAT Last administered on 10/20/16 19:20; Start 10/20/16 at 18:45 Furosemide (Lasix) 40 mg DAILY PO ; Start 10/22/16 at 09:00 Active Scripts Active Hydrocodone-Apap 5-325 (Hydrocodone Bit/Acetaminophen) 1 Each Tablet 1-2 Tab PO PRN Q6HRS PRN Lisinopril 10 Mg Tablet 1 Tab PO DAILY Vitals/I & O Vital Sign - Last 24 Hours 10/20/16 10/20/16 10/20/16 10/20/16 12:52 12:55 15:05 17:41 Temp 98.0 98.0 Pulse 61 61 61 Resp 14 14 14 16 B/P (MAP) 76/61 (66) 113/69 (84) 117/84 (95) Pulse Ox 98 98 94 96 O2 Delivery Room Air Room Air Room Air Room Air 10/20/16 10/20/16 10/20/16 10/20/16 17:45 18:02 18:21 18:22 Pulse 64 70 70 69 Resp 19 B/P (MAP) 166/101 (122) 166/101 (122) 161/104 (123) Pulse Ox 96 O2 Delivery Room Air 10/20/16 10/20/16 10/20/16 10/20/16 18:25 18:40 19:18 19:20 Pulse 69 66 B/P (MAP) 161/104 133/79 (97) Pulse Ox 96 O2 Delivery Room Air Room Air O2 Flow Rate 3.0 3.0 10/20/16 10/20/16 10/20/16 10/20/16 19:35 19:40 19:40 20:40 Temp 98.6 98.6 Pulse 66 77 77 60 Resp 16 B/P (MAP) 115/78 (90) 92/65 (74) 92/65 (74) 105/71 (82) Pulse Ox 96 O2 Delivery Room Air 10/20/16 10/20/16 10/20/16 10/21/16 21:10 22:10 23:58 02:47 Temp 97.8 97.9 97.8 97.9 Pulse 72 66 69 66 Resp 18 16 B/P (MAP) 97/66 (76) 134/86 (102) 86/47 (60) 128/75 (92) Pulse Ox 96 96 O2 Delivery Room Air Room Air 10/21/16 10/21/16 10/21/16 10/21/16 07:00 08:15 08:47 08:47 Temp 97.7 97.7 Pulse 65 65 65 Resp 16 B/P (MAP) 130/82 (98) 130/82 130/82 Pulse Ox 98 O2 Delivery Nasal Cannula Room Air 10/21/16 08:48 Pulse 65 B/P (MAP) 130/82 Intake and Output 10/20/16 10/20/16 10/21/16 15:00 23:00 07:00 Intake Total 220 ml 760 ml Output Total 300 ml Balance -80 ml 760 ml DENAE VIGIL MD Oct 21, 2016 11:22
--- NOTE | 2016-10-21 12:02 | PDOC ---
PULMONARY PROGRESS NOTES Subjective pt with no complaints Vitals Vital Signs Date Time Temp Pulse Resp B/P (MAP) Pulse Ox O2 Delivery O2 Flow Rate FiO2 10/21/16 08:48 65 130/82 10/21/16 08:15 Room Air 10/21/16 07:00 97.7 16 98 97.7 10/20/16 19:20 3.0 ROS: No Nausea, No Chest Pain, No Abdominal Pain, No Increase Cough General: Alert Lungs: Clear Cardiovascular: S1, S2 Abdomen: Soft Neuro Exam: Alert Extremities: No Edema Skin: Warm, Dry Labs Laboratory Tests Test 10/20/16 16:35 Activated Clotting Time 215 sec (92-181) Laboratory Tests Test 10/20/16 16:35 Activated Clotting Time 215 sec (92-181) Medications Active Scripts Medications Dose Route/Sig Max Daily Dose Days Date Category Hydrocodone-Apap 5-325 (Hydrocodone Bit/Acetaminophen) 1 Each Tablet 1-2 Tab PO PRN Q6HRS PRN 08/04/16 Rx Lisinopril 10 Mg Tablet 1 Tab PO DAILY 08/04/16 Rx Impression . 1. Acute respiratory failure, multifactorial secondary to acute pulmonary edema and pneumonia. 2. Pneumonia. 3. Acute systolic heart failure. The patient had echocardiogram revealing an ejection fraction of 25%. 4. Metabolic acidosis related to increased work of breathing. 5. Tobacco dependence. 6. Hypertension. 7. Hepatitis. Plan . 1. s/p cath/ MV CAD 2. s/p PCI / high risk for CABG. 3. Control blood pressure. 4. Continue Levaquin. 5. Monitor chest x-ray, 6. The patient instructed on the importance of discontinuing tobacco use. 7. Spirometry done ok with home MARÍA ELENA JACOBS MD Oct 21, 2016 12:02
--- NOTE | 2016-10-21 12:32 | CARD ---
APPROVED REPORT Procedure(s) performed: PTCA/PCI of the LAD PTCA/PCI of the RCA PTCA/PCI of the LCx and OM1 HISTORY The patient is a 56 year-old male with a history of : tobacco history() , hypertension. INDICATION The indication(s) include : non-STEMI , Patient is a 55-year-old male with a history of respiratory f ailure and noted to have LV systolic dysfunction and initially underwent a coronary injury gram which demonstrated multivessel disease. He was referred for coronary artery bypass grafting and felt to be higher risk given his history of hepatitis C. In the setting after viability study confirmed viabili ty in all areas of his heart he was taken to the catheterization laboratory for multivessel intervent ion.. CASE TECHNIQUE During this case, Fluoroscopy and low osmolar contrast were used for imaging. PROCEDURE NARRATIVE After discussion of the risks and benefits the patient was brought to the catheterization laboratory. The right groin was prepped and draped in usual sterile fashion. Under 2% lidocaine local anesthesia and moderate sedation a 18-gauge needle was used to access the right common femoral artery and a 6 F rench sheath was placed over a J-tipped guidewire without any difficulty. Interventional technique: PCI of the RCA Next limited agnostic angiography was performed with a JR4 guide catheter of the RCA which confirmed the previously noted 80-90% eccentric acute plaque rupture. Heparin bolus dosing was used to achieve and coagulation with an ACT above 200. In addition a bolus and drip of tirofiban was administered. Th rough the 6 [place] JR4 guide catheter pro-water wire was used to traverse the mid RCA lesion. The les ion was then angioplastied with a 3.0 x 20 mm balloon and subsequent he stented with a 3.[address]-eluting stent (Xience Alpine). Interventional technique: PCI of the LAD Next attention was turned to the LAD stenosis which was previously measured approximately 60% with a positive FFR. Through a 6 [place] EBU 3.75 guide catheter a 0.014 inch pro-water wire was advanced to the distal LAD. Next balloon interplasty was performed with a 3.0 x 12 mm balloon and the lesion was then stented with a 3.5 x 18 mm drug-eluting stent (Xience Alpine). Interventional technique: PCI of the chronic total occlusion of the first obtuse marginal and mid lef t circumflex. Subsequently, a water wire was advanced to the distal LPL and the mid left circumflex occlusion was c rossed. Next balloon interplasty was performed with a 2.0 x 12 mm balloon with prolonged inflations o f up to 1 minute. Repeat angioplasty was performed with a 3.0 x 20 mm balloon at high pressure for 1 minutes. This reduced the previous chronic total occlusion to less than 10% stenosis. Next initial at tempts to wire the first obtuse marginal chronic total occlusion with the pro-water wire were unsucce ssful. Subsequently, a pilot teacher 200 wire was used to traverse the stenosis. Balloon angioplasty was performed with the 3.0 x 20 mm balloon. The proximal and ostial first obtuse marginal was then stented with a 3.5 x 23 mm drug-eluting stent (Xience). Post-PCI angiography demonstrated excellent stent expansion in all 3 vessels and no evidence of guide or wire-related complications. The right common femoral artery sheath was removed and hemostasis was achieved with a Mynx Hesham device. The patient tolerated the procedure well and there were no acute pa lpitations. Conclusion 1. Three-vessel coronary artery disease. 2. Successful PCI of the right coronary artery with implantation of a 3.5 x 38 mm drug-eluting stent 3. Successful PCI of the mid LAD with implantation of a 3.5 x 18 mm drug-eluting stent. 4. Successful PCI of the first obtuse marginal chronic total occlusion with implantation of a 3.5 x 2 3 mm drug-eluting stent 5. Successful balloon angioplasty of the mid left circumflex chronic total occlusion with a 3.0 x 20 mm balloon with less than 20% residual stenosis. Recommendations Aspirin 81 mg indefinitely. Plavix 75 mg daily indefinitely. Cardiac rehabilitation referral. High-dose statin therapy.
[2016-10-21] MEDS ORDERED: SIMETHICONE/SOD BICARB/CITRIC ACID PACKET. PO ONE (13:00)
[2016-10-21] MEDS ORDERED: BARIUM SULFATE 60% 355 ML SUSP PO ONE (13:00)
[2016-10-21] MEDS ORDERED: BARIUM SULFATE 340 GM SUSPENSION. PO ONE (13:00)
[2016-10-21] MEDS: PRASUGREL 10 MG TABLET. PO SCH (15:31)
--- NOTE | 2016-10-21 15:32 | RAD ---
Esophagram History: Globus sensation and dysphagia after recent intubation. Comparison: None. Findings: A single contrast esophagram was performed with the patient in ZABALA decubitus positioning. Thin barium was administered the patient. The esophagus is without evidence of stricture or inflammatory change. The esophageal motility appears grossly appropriate. Contrast material is able to transit to the stomach. There is evidence of a small hiatal hernia. On several of the images, there is evidence of flash laryngeal penetration, but no tracheal aspiration was identified. The patient also denied any symptoms of aspiration. Total fluoroscopic time was 1.5 minutes. 23 spot fluoroscopic were documented for the PACS. Impression: 1. Small hiatal hernia. 2. Otherwise, essentially normal esophagram without evidence of strictures, masses, or significant inflammatory change. 3. Evidence of flash laryngeal penetration. No convincing aspiration identified.
[2016-10-21] MEDS: CARVEDILOL 12.5 MG TABLET. PO SCH (17:04)
[2016-10-21] MEDS ORDERED: ATOR40TA PO (17:19)
[2016-10-21] MEDS: ATORVASTATIN CALCIUM 40 MG TABLET. PO SCH (20:38)
[2016-10-21] MEDS: diphenhydrAMINE HCL 25 MG CAPSULE PO PRN (22:54)
[2016-10-22 08:08] VITALS: BP 119/75
[2016-10-22] MEDS: PANTOPRAZOLE 40 MG TABLET.DR. PO SCH (08:16)
[2016-10-22] MEDS: CARVEDILOL 12.5 MG TABLET. PO SCH (08:16)
[2016-10-22] MEDS: LISINOPRIL 40 MG TABLET. PO SCH (08:16)
[2016-10-22] MEDS: CETIRIZINE HCL 10 MG TABLET. PO SCH (08:16)
[2016-10-22] MEDS: POTASSIUM CHLORIDE 20 MEQ TABLET.ER. PO SCH (08:17)
[2016-10-22] MEDS: amLODIPine BESYLATE 10 MG TABLET PO SCH (08:17)
[2016-10-22] MEDS: PRASUGREL 10 MG TABLET. PO SCH (08:17)
[2016-10-22] MEDS: ASPIRIN ENTERIC COATED 81 MG TABLET.DR. PO SCH (08:17)
[2016-10-22] MEDS ORDERED: FUROSEMIDE 40 MG TABLET. PO SCH (09:00)
[2016-10-22 10:00] VITALS: BP 100/67
--- NOTE | 2016-10-22 10:14 | PDOC ---
PULMONARY PROGRESS NOTES Subjective pt with no complaints Vitals Vital Signs Date Time Temp Pulse Resp B/P (MAP) Pulse Ox O2 Delivery O2 Flow Rate FiO2 10/22/16 08:17 66 119/75 10/22/16 07:41 Room Air 10/22/16 07:00 97.9 97 97.9 10/21/16 22:47 16 ROS: No Nausea, No Chest Pain, No Abdominal Pain, No Increase Cough General: Alert Lungs: Clear Cardiovascular: S1, S2 Abdomen: Soft Neuro Exam: Alert Extremities: No Edema Skin: Warm, Dry Labs Laboratory Tests Test 10/20/16 16:35 Activated Clotting Time 215 sec (92-181) Medications Active Scripts Medications Dose Route/Sig Max Daily Dose Days Date Category Hydrocodone-Apap 5-325 (Hydrocodone Bit/Acetaminophen) 1 Each Tablet 1-2 Tab PO PRN Q6HRS PRN 08/04/16 Rx Lisinopril 10 Mg Tablet 1 Tab PO DAILY 08/04/16 Rx Impression . 1. Acute respiratory failure, multifactorial secondary to acute pulmonary edema and pneumonia. 2. Pneumonia. 3. Acute systolic heart failure. The patient had echocardiogram revealing an ejection fraction of 25%. 4. Metabolic acidosis related to increased work of breathing. 5. Tobacco dependence. 6. Hypertension. 7. Hepatitis. Plan . 1. s/p cath/ MV CAD 2. s/p PCI / high risk for CABG. 3. Control blood pressure. 4. Continue Levaquin. 5. Monitor chest x-ray, 6. The patient instructed on the importance of discontinuing tobacco use. 7. Spirometry done ok with home MARÍA ELENA JACOBS MD Oct 22, 2016 10:14
[2016-10-22] MEDS ORDERED: FUROSEMIDE 20 MG TABLET PO SCH (11:00)
[2016-10-22 11:12] VITALS: BP 91/57
[2016-10-22 11:24] VITALS: BP 106/66
--- NOTE | 2016-10-22 11:37 | PDOC3 ---
Discharge Summary Visit Information Date of Admission: October 12, 2016 Date of Discharge: Oct 22, 2016 Admitting Diagnosis Comment: ACUTE hypoxic resp failure with CHF RESOLVED acute systolic CHF with EF 25% HTN urgency resolved h/o Hep C Noncompliance tobaccoism hypokalemia, corrected possible COPD with possible CAP Dysphagia NSTEMI CAD s/p 3 stents (10/20/16) Final Diagnosis Problems Medical Problems: (1) Acute congestive heart failure Status: Acute (2) Acute respiratory failure Status: Acute (3) Metabolic acidosis Status: Acute (4) Respiratory acidosis Status: Acute Brief Hospital Course Allergies Allergies Coded Allergies Type Severity Reaction Last Updated Verified Penicillins Allergy Intermediate 08/04/16 Yes Vital Signs Vital Signs Date Time Temp Pulse Resp B/P (MAP) Pulse Ox O2 Delivery O2 Flow Rate FiO2 10/22/16 11:24 57 106/66 (79) 10/22/16 11:12 97.9 18 98 Room Air 97.9 Lab Results Laboratory Tests Test 10/20/16 16:35 Activated Clotting Time 215 sec (92-181) Brief Hospital Course Mr. Betancur is a 56 old male self pay hx IVDU? vs etoh, admitted for hypoxic respi failure from CHF - new dx needed to be intubated x 2 days, CArdiac cath showed CAD needed to stent. EF 25%. Course remarkable for throat soreness, cant eat, GI on board, ordered esophagogram bec pt sxs were dramatic, That was normal as expected. Advsied cepastat and time, Rx done, multiple cardiac meds, doses changed bec went hypotensive day prior to dc. That has resolved TIme 32 mins Lots of paperwork COnsults; cards, GI, pulmo Proc; vent and [facility] Discharge Information Condition at Discharge: Improved, Stable Follow Up: Weeks (cards as insrtucted) Disposition/Orders: D/C to Home Scheduled Lisinopril (Lisinopril), 1 TAB PO DAILY Scheduled PRN Hydrocodone Bit/Acetaminophen (Hydrocodone-Apap 5-325 ), 1-2 TAB PO PRN Q6HRS PRN for PAIN DENAE VIGIL MD Oct 22, 2016 11:37
[2016-10-22] MEDS ORDERED: CARV6.25 PO (11:38)
[2016-10-22] MEDS ORDERED: CLOP75TA27 PO (11:38)
[2016-10-22] MEDS ORDERED: LISI-334 PO (11:38)
[2016-10-22] MEDS ORDERED: AMLO5TAB4 PO (11:38)
[2016-10-22] MEDS ORDERED: FURO-69 PO (11:38)
[2016-10-22 13:04] VITALS: BP 113/74
[2016-10-22 14:00] VITALS: BP 126/71
[2016-10-22] MEDS ORDERED: ASPI81TA2 PO (15:24)
[2016-10-22] MEDS ORDERED: CARVEDILOL 6.25 MG TABLET. PO SCH (17:00)
[2016-10-23] MEDS ORDERED: amLODIPine BESYLATE 5 MG TABLET PO SCH (09:00)
[2016-10-23] MEDS ORDERED: FUROSEMIDE 20 MG TABLET PO SCH (09:00)
[2016-10-23] MEDS ORDERED: LISINOPRIL 20 MG TABLET PO SCH (09:00)
== END 2016-10-22 15:47 | disposition home or self-care (01) | DRG 853 ==
LOC: ER 22:58 → 1 WEST ICU 23:34 → 6 SOUTH 10-14 17:15 → 2 NORTH 10-18 14:46
PROVIDERS: ADMIT Internal Medicine; ATTEND Internal Medicine
PROC: 5A1945Z Respiratory Ventilation, 24-96 Consecutive Hours (ICD-10-PCS; principal; 2016-10-12)
PROC: 0BH17EZ Insertion of Endotracheal Airway into Trachea, Via Natural or Artificial Opening (ICD-10-PCS; 2016-10-12)
PROC: 4A023N7 Measurement of Cardiac Sampling and Pressure, Left Heart, Percutaneous Approach (ICD-10-PCS; 2016-10-18)
PROC: B2111ZZ Fluoroscopy of Multiple Coronary Arteries using Low Osmolar Contrast (ICD-10-PCS; 2016-10-18)
PROC: 027236Z Dilation of Coronary Artery, Three Arteries with Three Drug-eluting Intraluminal Devices, Percutaneous Approach (ICD-10-PCS; 2016-10-20)
PROC: 02703ZZ Dilation of Coronary Artery, One Artery, Percutaneous Approach (ICD-10-PCS; 2016-10-20)
DX: A41.9 Sepsis, unspecified organism (principal); J18.9 Pneumonia, unspecified organism; I50.43 Acute on chronic combined systolic (congestive) and diastolic (congestive) heart failure; J96.01 Acute respiratory failure with hypoxia; I21.4 Non-ST elevation (NSTEMI) myocardial infarction; B18.2 Chronic viral hepatitis C; J40 Bronchitis, not specified as acute or chronic; R73.9 Hyperglycemia, unspecified; E87.6 Hypokalemia; F17.210 Nicotine dependence, cigarettes, uncomplicated; I11.0 Hypertensive heart disease with heart failure; I25.10 Atherosclerotic heart disease of native coronary artery without angina pectoris; K21.9 Gastro-esophageal reflux disease without esophagitis; R13.10 Dysphagia, unspecified; I25.5 Ischemic cardiomyopathy; I16.0 Hypertensive urgency; Z95.5 Presence of coronary angioplasty implant and graft; Z91.19 Patient's noncompliance with other medical treatment and regimen; Z82.49 Family history of ischemic heart disease and other diseases of the circulatory system; Z88.0 Allergy status to penicillin; Z87.81 Personal history of (healed) traumatic fracture; Z79.899 Other long term (current) drug therapy; Z79.1 Long term (current) use of non-steroidal anti-inflammatories (NSAID); Z79.82 Long term (current) use of aspirin
CPT/HCPCS: 31500; 36415; 36600; 51702; 71010; 71250; 71275; 74220; 75625; 76700; 78452; 80048; 80053; 80061; 80074; 80076; 81001; 82553; 82805; 83036; 83605; 83735; 83880; 84484; 85007; 85027; 85347; 85379; 87040; 87086; 87641; 92928; 92943; 93005; 93306; 93454; 93571; 93880; 93970; 94002; 94003; 94060; 94250; 94760; 96365; 96366; 96375; 96376; 99406; A9505; C1769; C1892; G0269; G0481; J0360; J0583; J1650; J1940; J1956; J2250; J2270; J2704; J3010; J3490; J7030; J7040; Q0163; Q9967; 97116; 97530; 99285-25; J3246

== ENCOUNTER → 2018-04-09 | Outpatient (CLI) | payer OTHER ==
[~2018-04-09] MED LIST changes: +AMLO5TAB4 PO; +ASPI-630 PO; +ATOR40TA PO; +CARV6.25 PO; +CLOP75TA57 PO; +FURO-69 PO; -HYDR-2666 PO; +HYDR-2758 PO; +LISI-334 PO
--- NOTE | 2018-04-09 10:25 | CARD ---
MR#: [id number] Date of Study: 04/09/2018 Ordering Physician: MANAN SERRA, Referring Physician: MANAN SERRA, Tech: Jayde Sands BIBI APPROVED REPORT EXAM: Two-dimensional and M-mode echocardiogram with Doppler and color Doppler. Other Information Quality : Good INDICATION Ischemic Cardiomyopathy 2D DIMENSIONS RVDd2.4 (2.9-3.5cm)Left Atrium(2D)3.6 (1.6-4.0cm) IVSd1.2 (0.7-1.1cm)Aortic Root(2D)2.7 (2.0-3.7cm) LVDd5.7 (3.9-5.9cm)LVOT Diameter2.1 (1.8-2.4cm) PWd1.1 (0.7-1.1cm)LVDs5.0 (2.5-4.0cm) FS (%) 20.5 %SV83.3 ml LVEF(%)55.0 (>50%) Aortic Valve AoV Peak Keron.224.9cm/sAoV VTI44.6cm AO Peak GR.20.2mmHgLVOT Peak Keron.113.4cm/s LVOT VTI 24.97cmAO Mean GR.11mmHg BROOKE (VMAX)1.96dq8HNI (VTI)1.97cm2 AI P 1/2 Gdzl380uh Mitral Valve MV E Kiqauare18.1cm/sMV DECEL [id number] MV A Qygrfawz62.8cm/sMV FOV21qp E/A Ratio1.1MVA (PHT)3.23cm2 TDI E/Lateral E'11.0E/Medial E'15.2 Pulmonary Vein S1 Qbilpvdn75.3cm/sD2 Kxzxfmta76.5cm/s LEFT VENTRICLE The left ventricle is normal size. There is normal left ventricular wall thickness. The left ventricu lar systolic function is normal and the ejection fraction is within normal range. The Ejection Fracti on is 55-60%. The basal inferior wall is severely hypokinetic. Otherwise, normal wall motion. Tissue Doppler imaging reveals mild left ventricular diastolic dysfunction. RIGHT VENTRICLE The right ventricle is normal size. The right ventricular systolic function is normal. ATRIA The left atrium size is normal. The right atrium size is normal. The interatrial septum is intact wit h no evidence for an atrial septal defect or patent foramen ovale as noted on 2-D or Doppler imaging. AORTIC VALVE The aortic valve is moderately thickened but opens fairly well. Doppler and Color Flow revealed mild aortic regurgitation. There is no significant aortic valvular stenosis. Calculated aortic valve area is 1.9 cm2 with maximum pressure gradient of 20 mmHg and mean pressure gradient of 12 mmHg. MITRAL VALVE The mitral valve is calcified but opens well. There is no evidence of mitral valve prolapse. There is no mitral valve stenosis. Doppler and Color-flow revealed trace to mild mitral regurgitation. TRICUSPID VALVE The tricuspid valve is normal in structure and function. Doppler and Color Flow revealed no tricuspid valve regurgitation noted. There is no tricuspid valve stenosis. PULMONIC VALVE The pulmonic valve is not well visualized. Doppler and Color Flow revealed no pulmonic valvular regur gitation. There is no pulmonic valvular stenosis. GREAT VESSELS The aortic root is normal in size. The ascending aorta is not well seen. The IVC is normal in size an d collapses >50% with inspiration. PERICARDIAL EFFUSION There is no evidence of significant pericardial effusion. Critical Notification Critical Value: No <Conclusion> The left ventricular systolic function is normal and the ejection fraction is within normal range. Th e Ejection Fraction is 55-60%. The basal inferior wall is severely hypokinetic. Otherwise, normal wall motion. There is no significant aortic valvular stenosis. Calculated aortic valve area is 1.9 cm2 with maximu m pressure gradient of 20 mmHg and mean pressure gradient of 12 mmHg. Signed by : Manan Serra, Electronically Approved : 04/09/2018 10:24:56
== END | disposition home or self-care (01) ==
LOC: ECHO 09:11
PROVIDERS: ATTEND Internal Medicine Cardiovascular Disease
DX: I08.0 Rheumatic disorders of both mitral and aortic valves (principal); I25.5 Ischemic cardiomyopathy
CPT/HCPCS: 93306

== ENCOUNTER → 2018-11-30 | Outpatient (CLI) | payer OTHER ==
[~2018-11-30] MED LIST changes: -HYDR-2758 PO; +HYDR-2761 PO
[2018-11-30 11:59] LABS: CALCIUM 9.3 mg/dL (8.5-10.1); GFR 76.5; POTASSIUM 3.9 mmol/L (3.5-5.1); TOTAL BILIRUBIN 0.5 mg/dL (0.2-1.0)
[2018-11-30 12:02] LABS: CHOLESTEROL/HDL RATIO 3.8
[2018-12-01 00:07] LABS: HEMOGLOBIN A1C 6.7 % (4.8-5.6)
== END | disposition home or self-care (01) ==
LOC: LAB 10:06
PROVIDERS: ATTEND Family Medicine
DX: E78.5 Hyperlipidemia, unspecified (principal); R73.02 Impaired glucose tolerance (oral)
CPT/HCPCS: 36415; 80053; 80061; 83036

== ENCOUNTER → 2018-11-30 | Outpatient (CLI) | payer OTHER ==
--- NOTE | 2018-11-30 12:32 | CARD ---
MR#: [id number] Date of Study: 11/30/2018 Ordering Physician: MANAN SERRA, Referring Physician: MANAN SERRA, Tech: Jayde Sands BIBI APPROVED REPORT EXAM: Two-dimensional and M-mode echocardiogram with Doppler and color Doppler. Other Information Quality : Good INDICATION Ischemic Cardiomyopathy 2D DIMENSIONS Left Atrium(2D)3.3 (1.6-4.0cm)IVSd1.2 (0.7-1.1cm) Aortic Root(2D)2.9 (2.0-3.7cm)LVDd5.2 (3.9-5.9cm) LVOT Diameter2.4 (1.8-2.4cm)PWd0.9 (0.7-1.1cm) LVDs3.5 (2.5-4.0cm)FS (%) 33.2 % SV79.5 mlLVEF(%)60.0 (>50%) M-Mode DIMENSIONS Aortic Cusp Exc1.78 (1.5-2.0cm) Aortic Valve AoV Peak Keron.209.6cm/sAoV VTI39.8cm AO Peak GR.17.6mmHgLVOT Peak Keron.116.4cm/s LVOT VTI 27.09cmAO Mean GR.10mmHg BROOKE (VMAX)2.54fs2BFK (VTI)3.20cm2 Mitral Valve MV E Kzinvnqi23.9cm/sMV DECEL EKSZ530zp MV A Phbmgxek06.8cm/sMV AFT21zb E/A Ratio0.9MVA (PHT)2.57cm2 TDI E/Lateral E'17.6E/Medial E'13.9 Pulmonary Vein S1 Otynjlbk35.2cm/sD2 Kfgxmwch12.5cm/s LEFT VENTRICLE The left ventricle is normal size. There is mild asymmetric septal hypertrophy. The left ventricular systolic function is normal. The Ejection Fraction is 55-60%. There is normal LV segmental wall motio n. Transmitral Doppler flow pattern is Grade I-abnormal relaxation pattern. RIGHT VENTRICLE The right ventricle is normal size. The right ventricular systolic function is normal. ATRIA The left atrium size is normal. The right atrium size is normal. The interatrial septum is intact wit h no evidence for an atrial septal defect or patent foramen ovale as noted on 2-D or Doppler imaging. AORTIC VALVE The aortic valve is mildly thickened, moderately calcified but opens well. Doppler and Color Flow rev ealed trace to mild aortic regurgitation. There is no significant aortic valvular stenosis. MITRAL VALVE The mitral valve is normal in structure and function. There is no evidence of mitral valve prolapse. There is no mitral valve stenosis. Doppler and Color-flow revealed trace mitral regurgitation. TRICUSPID VALVE The tricuspid valve is normal in structure and function. Doppler and Color Flow revealed no tricuspid valve regurgitation noted. There is no tricuspid valve stenosis. PULMONIC VALVE The pulmonic valve is not well visualized. Doppler and Color Flow revealed no pulmonic valvular regur gitation. There is no pulmonic valvular stenosis. GREAT VESSELS The aortic root is normal in size. The ascending aorta is normal in size. The IVC is normal in size a nd collapses >50% with inspiration. PERICARDIAL EFFUSION There is no evidence of significant pericardial effusion. Critical Notification Critical Value: No <Conclusion> The left ventricular systolic function is normal. The Ejection Fraction is 55-60%. There is normal LV segmental wall motion. Transmitral Doppler flow pattern is Grade I-abnormal relaxation pattern. Trace to mild aortic regurgitation. Trace mitral regurgitation. There is no evidence of significant pericardial effusion. Signed by : Ten Lopez, Electronically Approved : 11/30/2018 12:31:49
--- NOTE | 2018-11-30 12:33 | RAD ---
Carotid artery Doppler History: , , , Technique: Realtime grayscale B-mode 2D sonographic images of the subclavian, vertebral and carotid arteries were performed with color flow, and spectral waveform analysis Doppler imaging. Comparison: October 18, 2016 Stenosis calculations are derived from the elevated velocity criteria which are known to correlate with NASCET methodology. Findings: Mild Scattered focal soft and calcific plaque is seen in the carotid arteries. Right vertebral: antegrade Left vertebral: antegrade Right subclavian: None documented Left subclavian: Not documented Right Left Common Carotid Artery PSV 89 cm/second 94 cm/second Internal Carotid Artery PSV 62 cm/second 53 cm/second Internal Carotid Artery EDV 24 cm/second 20 cm/second External Carotid Artery PSV 107 cm/second 93 cm/second ICA/CCA ratio 0.7 0.6 Impression: bilateral carotid artery plaque formation with no evidence of hemodynamically significant stenosis Electronically signed by: Ramesh Ortiz MD (11/30/2018 12:31 PM) [facility] [place]
== END | disposition home or self-care (01) ==
LOC: ECHO 09:56
PROVIDERS: ATTEND Internal Medicine Cardiovascular Disease
DX: I35.1 Nonrheumatic aortic (valve) insufficiency (principal); I51.7 Cardiomegaly; I65.23 Occlusion and stenosis of bilateral carotid arteries; I25.5 Ischemic cardiomyopathy
CPT/HCPCS: 93306; 93880

== ENCOUNTER → 2019-07-25 | Outpatient (CLI) | payer OTHER ==
[~2019-07-25] MED LIST changes: +IOHEXOL 350 MG/ML 100 ML VIAL. IV ONE
--- NOTE | 2019-07-25 15:16 | RAD ---
CT angiography of the abdomen and pelvis. 07/25/2019. INDICATION: Abdominal aortic aneurysm. COMPARISON STUDY: None. TECHNIQUE: Multidetector and chest CT angiography of the abdomen and pelvis was performed before and after the administration of IV contrast. FINDINGS: Visualized lung bases are unremarkable. Solid viscera of the abdomen demonstrate no acute abnormality. There is no evidence of bowel obstruction. Segmental wall thickening involving the sigmoid colon is noted. This could represent chronic change in the setting of diverticulosis, represent mild diverticulitis or colitis, or although significantly less likely, neoplastic etiology. Endoscopic evaluation recommended. Visualized thoracic aorta is unremarkable in appearance. Celiac artery is patent. Superior mesenteric artery is patent. The renal arteries are patent. The inferior mesenteric artery is patent. There is very mild ectasia of the distal abdominal aorta measuring 3 cm in diameter. There is aneurysmal dilatation of the right common iliac artery measuring up to 2.3 cm in diameter. Small penetrating ulcer noted within the common iliac artery is seen. Mild stenosis of the right internal iliac artery is seen. Right external iliac arteries patent. Right common femoral artery is patent. Proximal portions of the right SFA and profunda artery are patent. Left common iliac arteries patent. Relatively low bifurcation of the internal iliac artery is seen with moderate stenosis. Left external iliac arteries patent. Proximal left profunda and SFA are patent. IMPRESSION: 1. Ectasia of the distal most abdominal aorta up to 3.0 cm. 2. 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 3. Nonspecific thickening of the sigmoid colon which could be chronic relating to diverticular disease, relate to colitis, or although less likely, a neoplastic etiology. Endoscopic follow-up recommended. CT DOSING PQRS STATEMENT: One or more of the following individualized dose reduction techniques were utilized for this examination: 1. Automated exposure control 2. Adjustment of the mA and/or kV according to patient size 3. Use of iterative reconstruction technique Electronically signed by: Francisco Whitley MD (07/25/2019 3:14 PM) [id number]
== END | disposition home or self-care (01) ==
LOC: CT 09:53
PROVIDERS: ATTEND Internal Medicine Cardiovascular Disease
DX: I77.811 Abdominal aortic ectasia (principal); I72.3 Aneurysm of iliac artery; I25.10 Atherosclerotic heart disease of native coronary artery without angina pectoris; I73.9 Peripheral vascular disease, unspecified
CPT/HCPCS: 74174; Q9967

== ENCOUNTER → 2019-11-07 | Outpatient (CLI) | payer OTHER ==
[~2019-11-07] MED LIST changes: -IOHEXOL 350 MG/ML 100 ML VIAL. IV ONE
== END | disposition home or self-care (01) ==
LOC: LAB 13:46
PROVIDERS: ATTEND Internal Medicine Gastroenterology
DX: Z11.59 Encounter for screening for other viral diseases (principal)
CPT/HCPCS: 36415; U0003

== ENCOUNTER → 2019-11-13 | Day surgery (SDC) | payer OTHER ==
[~2019-11-13] MED LIST changes: +IV RINGERS,LACTATED 1000ML 1,000 ML IV SCH; +PROPOFOL 10 MG/ML (20ML) VIAL. IV ONE
[2019-11-13 08:48] VITALS: BP 135/64
--- NOTE | 2019-11-13 11:36 | HP ---
ADMIT DATE: REFERRING PHYSICIAN: Bev Kramer MD HISTORY OF PRESENT ILLNESS: A 59-year-old male with past medical history significant for hypertension, congestive heart failure, diabetes as well as COPD, is seen for screening colon exam. Bowel habits are regular without diarrhea or constipation. There has been no melena and/or hematochezia. Weight and appetite are stable. He is otherwise without additional complaints. ALLERGIES: PENICILLIN. MEDICATIONS: Include amlodipine, aspirin, atorvastatin, carvedilol, Plavix, furosemide, and lisinopril. PAST MEDICAL HISTORY: Arthritis, CHF, diabetes, hypertension, rheumatic fever, history of stents. FAMILY HISTORY: Significant for CVA with grandmother, diabetes with mother and sister, hypertension with mother. SOCIAL HISTORY: Former smoker, social drinker. PAST SURGICAL HISTORY: Significant for tonsillectomy. REVIEW OF SYSTEMS: Per records. PHYSICAL EXAMINATION: GENERAL: Reveals a thin white male who is alert, cooperative, in mild distress. VITAL SIGNS: Temperature 98.3, pulse 57, respiratory rate 20. LUNGS: Clear. CARDIOVASCULAR: Reveals an S1, S2 without S3, S4 or appreciable murmur. ABDOMEN: With a soft abdomen, normal bowel sounds, without appreciable hepatosplenomegaly. EXTREMITIES: Reveals no cyanosis, clubbing or edema. IMPRESSION: Colorectal screening is warranted at this time. Risks and benefits of procedure including risk of hemorrhage or perforation during the operation were discussed. The patient is willing to proceed. CAROL SALINAS MD DR: MADELINE/mark JOB#: [id number] / [id number]
--- NOTE | 2019-11-14 18:06 | PATHOLOGY ---
[facility] Accession Number: [id number] . 01 Material submitted: . colon - TRANSVERSE COLON POLYP. Modifiers: transverse . 02 Diagnosis: Colon biopsies, transverse colon polyps: - Tubular adenomas. LBQ 11/14/2019 1400 Local . 02 Comment: There is no high grade dysplasia or evidence of malignancy. (JPM/db; 11/14/2019) . 02 Electronically signed: . Maximilian Elaine MD, Pathologist NPI- [id number] . 01 Gross description: . The specimen is received in formalin, labeled "Pipe, Otis, polyp transverse colon" and consists of multiple fragments of garcia tissue measuring 0.8 x 0.4 x 0.2 cm in aggregate which are entirely submitted in A1. ([facility]; 11/13/2019) JFQ/JFQ 11/13/2019 1830 Local . 02 Pathologist provided ICD-10: D12.3 . 02 CPT . 540980 Specimen Comment: A courtesy copy of this report has been sent to [phone] Specimen Comment: [id number] Specimen Comment: Report sent to / DR BEEBE Performed at: 01 [facility] [address], [place] [id number] MD Timo Boyd MD Phone: [phone] Performed at: 02 [facility] [place] [address] [place], [place] [id number] MD Maximilian Elaine MD Phone: [phone]
== END ==
LOC: ENDOS 07:09
PROVIDERS: ATTEND Internal Medicine Gastroenterology
DX: Z12.11 Encounter for screening for malignant neoplasm of colon (principal); D12.3 Benign neoplasm of transverse colon; K57.30 Diverticulosis of large intestine without perforation or abscess without bleeding; K64.0 First degree hemorrhoids; E11.9 Type 2 diabetes mellitus without complications; I11.0 Hypertensive heart disease with heart failure; I50.9 Heart failure, unspecified; Z87.39 Personal history of other diseases of the musculoskeletal system and connective tissue; Z88.0 Allergy status to penicillin; Z72.89 Other problems related to lifestyle; Z87.891 Personal history of nicotine dependence; Z98.890 Other specified postprocedural states; Z79.84 Long term (current) use of oral hypoglycemic drugs
CPT/HCPCS: 45380; 88305; J2704; 45384

== ENCOUNTER → 2020-01-10 | Outpatient (CLI) | payer OTHER ==
[2019-11-13 08:48] VITALS: BP 135/64
[~2020-01-10] MED LIST changes: -IV RINGERS,LACTATED 1000ML 1,000 ML IV SCH; -PROPOFOL 10 MG/ML (20ML) VIAL. IV ONE
--- NOTE | 2020-01-10 12:55 | CARD ---
MR#: [id number] Date of Study: 01/10/2020 Ordering Physician: MANAN SERRA, Referring Physician: MANAN SERRA, Tech: Jayde Sands [facility] APPROVED REPORT EXAM: Two-dimensional and M-mode echocardiogram with Doppler and color Doppler. Other Information Quality : Good Rhythm : PVC's INDICATION Ischemic Cardiomyopathy 2D DIMENSIONS Left Atrium(2D)3.4 (1.6-4.0cm)IVSd1.2 (0.7-1.1cm) Aortic Root(2D)3.0 (2.0-3.7cm)LVDd5.6 (3.9-5.9cm) LVOT Diameter2.0 (1.8-2.4cm)PWd0.8 (0.7-1.1cm) LVDs2.5 (2.5-4.0cm)FS (%) 25.0 % Aortic Valve AoV Peak Keron.238.0cm/sAoV VTI53.0cm AO Peak GR.23.0mmHgLVOT Peak Keron.123.0cm/s LVOT VTI 31.00cmAO Mean GR.14mmHg BROOKE (VTI)1.80cm2 LEFT VENTRICLE The left ventricle is normal size. There is mild concentric left ventricular hypertrophy. The left ve ntricular systolic function is normal and the ejection fraction is within normal range. The Ejection Fraction is 55-60%. Transmitral Doppler flow pattern is Grade I-abnormal relaxation pattern. RIGHT VENTRICLE The right ventricle is normal size. The right ventricular systolic function is normal. ATRIA The left atrium size is normal. The right atrium size is normal. The interatrial septum is intact wit h no evidence for an atrial septal defect or patent foramen ovale as noted on 2-D or Doppler imaging. AORTIC VALVE The aortic valve is calcified and displays decreased opening. Doppler and Color Flow revealed trace a ortic regurgitation. Calculated aortic valve area is 1.8 cm2 with maximum pressure gradient of 23 mmH g and mean pressure gradient of 14 mmHg. Doppler and color-flow analysis revealed mild aortic stenosi s. MITRAL VALVE The mitral valve is calcified but opens well. Mitral annular calcification is mild. There is no evide nce of mitral valve prolapse. There is no mitral valve stenosis. Doppler and Color Flow revealed no m itral valve regurgitation noted. TRICUSPID VALVE The tricuspid valve is normal in structure and function. Doppler and Color Flow revealed no tricuspid valve regurgitation noted. There is no tricuspid valve stenosis. PULMONIC VALVE The pulmonic valve is not well visualized. Doppler and Color Flow revealed no pulmonic valvular regur gitation. There is no pulmonic valvular stenosis. GREAT VESSELS The aortic root is normal in size. The ascending aorta is not well seen. The IVC is normal in size an d collapses >50% with inspiration. PERICARDIAL EFFUSION There is no evidence of significant pericardial effusion. Critical Notification Critical Value: No <Conclusion> The left ventricle is normal size. The left ventricular systolic function is normal and the ejection fraction is within normal range. The Ejection Fraction is 55-60%. There is mild concentric left ventricular hypertrophy. Doppler and Color Flow revealed trace aortic regurgitation. Calculated aortic valve area is 1.8 cm2 with maximum pressure gradient of 23 mmHg and mean pressure g radient of 14 mmHg. Doppler and color-flow analysis revealed mild aortic stenosis. Doppler and Color Flow revealed no mitral valve regurgitation noted. Doppler and Color Flow revealed no tricuspid valve regurgitation noted. Signed by : Ladarius Mares MD Electronically Approved : 01/10/2020 12:54:56
== END | disposition home or self-care (01) ==
LOC: ECHO 11:05
PROVIDERS: ATTEND Internal Medicine Cardiovascular Disease
DX: I08.0 Rheumatic disorders of both mitral and aortic valves (principal); I25.5 Ischemic cardiomyopathy
CPT/HCPCS: 93306

== ENCOUNTER → 2020-08-03 | Outpatient (CLI) | payer OTHER ==
[2019-11-13 08:48] VITALS: BP 135/64
[~2020-08-03] MED LIST changes: -LISI-334 PO; +LISI10TA16 PO; -LISI10TA2 PO; +LISI20TA18 PO
--- NOTE | 2020-08-03 09:58 | RAD ---
MR#: [id number] Date of Study: 08/03/2020 Ordering Physician: MANAN SERRA, Referring Physician: MANAN SERRA, Tech: Heidi Rivera, GIULIAMS, RVT, RTR APPROVED REPORT Patient Location: OUT-PATIENT Laterality:Bilateral Indications Dizziness and Vertigo Speech Difficulty Risk Factors Hypertension: PAD Doppler Spectral Velocity Analysis Right Left pCCA 90/20 cm/spCCA 79/19 cm/s mCCA 98/24 cm/smCCA 79/20 cm/s dCCA 89/24 cm/sdCCA 73/16 cm/s Bulb 58/21 cm/sBulb 62/22 cm/s ECA 109/23 cm/sECA 97/21 cm/s pICA 51/13 cm/spICA 62/23 cm/s Devaughn 55/24 cm/smICA 60/24 cm/s dICA 89/30 cm/sdICA 42/21 cm/s Vert. 46/19 cm/sVert. 42/21 cm/s ICA/CCA 0.91ICA/CCA 0.78 Findings Grayscale images of the bilateral carotid bifurcations demonstrates moderate diffuse plaque at the le [place] of the carotid bulbs. Otherwise no significant obstruction is noted based on velocity criteria. Overall 0 to less than 50% stenosis bilaterally. Normal ICA to CCA ratios bilaterally. Normal ante grade vertebral velocities bilaterally. Critical Notification Critical Value: No <Conclusion> 1. No significant carotid occlusive disease bilaterally Signed by : Manan Serra, Electronically Approved : 08/03/2020 09:58:09
--- NOTE | 2020-08-03 10:00 | RAD ---
MR#: [id number] Date of Study: 08/03/2020 Ordering Physician: MANAN SERRA, Referring Physician: MANAN SERRA, Tech: Heidi Rivera RDMS, ANA LUISAT, RTR APPROVED REPORT Patient Location: OUT-PATIENT Indications AAA Risk Factors PAD Hypertension Duplex Results A/PTransverseLongitudinal Proximal Aorta 2.0cm2.6cm2.4cm Mid Aorta 2.1cm2.4cm2.4cm Distal Aorta 2.7cm2.3cm2.4cm Rt. Common Iliac Artery1.6cm1.4cm1.1cm Lt. Common Iliac Artery 1cm1.1cm1.09cm Doppler VelocityWaveform Proximal Aorta 80.3 cm/secBiphasic Aorta Mid. 73.2 cm/secBiphasic Distal Aorta 57.0 cm/secBiphasic Rt. Common Iliac Gzfwwj993.9 cm/secTriphasic Lt. Common Iliac Artery 137.7 cm/secTriphasic Findings Grayscale images of the abdominal aorta demonstrate moderate diffuse plaque. No evidence of abdomina l aortic aneurysm. Measurements as noted with a maximum diameter of 2.7 cm in transverse dimension. Normal aortic velocities. No critical aortic bifurcation disease noted on limited images. Critical Notification Critical Value: No <Conclusion> 1. No evidence of abdominal aortic aneurysm Signed by : Manan Serra, Electronically Approved : 08/03/2020 09:59:50
== END ==
LOC: US 11:03
PROVIDERS: ATTEND Internal Medicine Cardiovascular Disease
DX: I71.4 Abdominal aortic aneurysm, without rupture (principal); I65.23 Occlusion and stenosis of bilateral carotid arteries; I10 Essential (primary) hypertension
CPT/HCPCS: 76770; 93880

== ENCOUNTER → 2021-05-18 | Outpatient (CLI) | payer OTHER ==
[2019-11-13 08:48] VITALS: BP 135/64
[~2021-05-18] MED LIST changes: +REGADENOSON 0.4 MG/5 ML DISP.SYRIN. IV ONE
--- NOTE | 2021-05-18 18:37 | RAD ---
MR#: [id number] Date of Study: 05/18/2021 Ordering Physician: MANAN MACK, Referring Physician: OSMAR CATALAN Tech: SOL Isaac APPROVED REPORT Test Type: Pharmacological Stress Nurse/Tech: FERDINAND HERNANDEZ Test Indications: CAD Cardiac History: CAD, STENTS, [place]- SEE EMR Medications: SEE EMR- COREG? Medical History: SMOKER- SEE EMR Resting ECG: SB/SR Resting Heart Rate: 57 bpm Resting Blood Pressure: 127/77mmHg Pretest Chest Pain: No chest pain Nurse/Tech Notes S1,S2, LUNGS CTA, PT DENIED CP OR SOA PRIOR TO TESTING. PT STATED HE TOOK HIS DOSE OF COREG LAST NIGH T. VSS. Consent: The procedure was explained to the patient in lay terms. Informed consent was witnessed. Kanu eout was entered into [employer]. History and Stress Test performed by Marilee Ma, RT (R) (N) Pharm. Details Pharmacologic stress testing was performed using 0.4mg per 5ml of regadenoson given intravenously ove r 7-10 seconds. Stress Symptoms TREADMILL TEST ATTEMPTED, PT UNABLE TO ACHIEVE MAX HR BEFORE HIS LEGS WERE CRAMPING AND HE WAS SHORT OF BREATH. DURING LEXISCAN TEST, PT C/O SOA AND NAUSEA. AFTER ABOUT THREE MINUTES HIS SYMPTOMS SUBSID ED. POST EXERCISE Reason for Termination: Infusion complete Target HR: 136 Max HR: 108 bpm Max Blood Pressure: 139/89mmHg Blood Pressure response to exercise: Normal blood pressure response during stress. Heart Rate response to exercise: WNL Chest Pain: No. Arrhythmia: . T WAVE ABNORMALITY NOTED IN VARIOUS LEADS AT BASELINE EKG AND DURING STRESS. INTERPRETATION Stress EKG Conclusion: Nonspecific T wave inversions with stress testing. No obvious ischemic findin gs. Imaging Protocol IMAGE PROTOCOL: Rest Tc-99m/stress Tc-99m 1 day Rest: Stress: Viability: Radiopharm.Tc99m PmtilzzesBm63w Sestamibi Jjfh95hNm 30.5mCi Duration 15min. 13min. Img Date 05/18/2021 05/18/2021 Inj-Img Brvu57nvv. 60min. Rest Admin Site:IV - Left AntecubitalAdministrator:SOL Isaac Stress Admin Site: IV - Left AntecubitalAdministrator: RT Chaim (R)(N) STRESS DATA End Diast. Vol.125.0mlLVEDV index BSA64.0ml End Syst. Vol.48.0mlLVESV index BSA25.0ml Myocardial Urau240.0gEject. Pfuiucbo43.0% Stress Scores Regional WT1.00Summed WT11.00 Regional WM0.00Summed WM3.00 LV Perfusion There is a moderate sized basal to mid inferior and inferolateral fixed perfusion defect with mild pe ri-infarct ischemia suggestive of prior infarct in the circumflex territory. Wall Motion Mild inferolateral hypokinesis. EF 60%. LV Perf. Quant 17 Seg. SSS8.00 17 Seg. SRS7.00 17 Seg. SDS1.00 Stress Defect Extent (% LAD)0.00Rest Defect Extent (% LAD)0.00Rev. Defect Extent (% LAD)0.00 Stress Defect Extent (% LCX) 56.30Rest Defect Extent (% LCX)55.00Rev. Defect Extent (% LCX)0.00 Stress Defect Extent (% RCA)7.80Rest Defect Extent (% RCA)1.10Rev. Defect Extent (% RCA)0.00 Stress Defect Extent (% GRACE)18.30Rest Defect Extent (% GRACE)18.00Rev. Defect Extent (% GRACE)0.00 Other Information Quality:Average Overall Exercise Capacity: Poor Risk Assessment: Moderate Risk Conclusion 1. No evidence of stress-induced ischemic EKG changes. Patient had poor exercise tolerance. 2. Fixed inferolateral perfusion defect suggestive of prior infarct without significant ischemia. 3. Normal EF at 60% 4. Moderate risk for future cardiovascular events Signed by : Manan Mack, Electronically Approved : 05/18/2021 18:37:39
== END ==
LOC: NM 08:35
PROVIDERS: ATTEND Internal Medicine Cardiovascular Disease
DX: I25.5 Ischemic cardiomyopathy (principal)
CPT/HCPCS: 78452; 93017; A9500; J2785

== ENCOUNTER → 2021-09-06 | Outpatient (CLI) | payer OTHER ==
[2019-11-13 08:48] VITALS: BP 135/64
[~2021-09-06] MED LIST changes: -REGADENOSON 0.4 MG/5 ML DISP.SYRIN. IV ONE
--- NOTE | 2021-09-06 14:21 | RAD ---
MR#: [id number] Date of Study: 09/06/2021 Ordering Physician: MANAN SERRA, Referring Physician: MANAN SERRA, Tech: APPROVED REPORT Indications AAA Duplex Results A/PTransverseLongitudinal Proximal Aorta 2.3cm2.2cm Mid Aorta 2.3cm2.2cm Distal Aorta 2.0cm2.0cm Doppler VelocityWaveform Proximal Aorta 75.0 cm/secTriphasic Aorta Mid. 61.0 cm/secTriphasic Distal Aorta 49.0 cm/secTriphasic Rt. Common Iliac Qbahae25.0 cm/secTriphasic Lt. Common Iliac Artery 141.0 cm/secTriphasic Findings Grayscale images of abdominal aorta showed mild diffuse atherosclerosis without any aneurysmal dilata tion. Spectral waveform and color duplex analysis showed triphasic waveforms in the proximal, mid an d distal segments without any evidence of stenosis. The iliac arteries bilaterally were poorly visua lized due to overlying bowel. Critical Notification Critical Value: No <Conclusion> Ultrasound abdominal aorta did not show any aneurysmal dilatation or stenosis. Signed by : Ten Lopez, Electronically Approved : 09/06/2021 14:20:27
--- NOTE | 2021-09-06 14:23 | RAD ---
MR#: [id number] Date of Study: 09/06/2021 Ordering Physician: MANAN SERRA, Referring Physician: MANAN SERRA, Tech: APPROVED REPORT Indications Dizziness and Vertigo dizziness when turning head. rule out carotid stenosis Doppler Spectral Velocity Analysis Right Left pCCA 90/19 cm/spCCA 74/22 cm/s mCCA 93/20 cm/smCCA 65/17 cm/s dCCA 81/23 cm/sdCCA 65/16 cm/s Bulb 52/15 cm/sBulb ECA 87/15 cm/sECA 85/15 cm/s pICA 52/20 cm/spICA 52/19 cm/s Devaughn 43/17 cm/smICA 55/20 cm/s dICA 50/20 cm/sdICA 45/17 cm/s Vert. 32/9 cm/sVert. 29/12 cm/s ICA/CCA 0.56ICA/CCA 0.74 Findings Grayscale images of extracranial carotid arteries showed mild atherosclerotic plaque in the right car otid bulb and moderate atherosclerotic plaque in the left carotid bulb. Spectral waveform and color duplex analysis showed normal velocities suggestive of 0 to less than 50% stenosis. The ICA to CCA r atios were normal bilaterally. The vertebral arteries bilaterally showed antegrade flow with normal velocities. No significant carotid artery stenosis was noted Critical Notification Critical Value: No <Conclusion> Carotid arterial duplex scan did not show any significant carotid artery stenosis. Signed by : Ten Lopez, Electronically Approved : 09/06/2021 14:22:56
== END ==
LOC: US 08:45
PROVIDERS: ATTEND Internal Medicine Cardiovascular Disease
DX: I65.23 Occlusion and stenosis of bilateral carotid arteries (principal); I70.0 Atherosclerosis of aorta
CPT/HCPCS: 76770; 93880